=== PATIENT | male | born 1945 | race Caucasian/White ===

== ENCOUNTER 2017-10-12 10:32 | Outpatient (CLI) | payer MEDICARE, OTHER ==
[2017-10-12 11:54] LABS: Hemoglobin 12.3 g/dL (14.0-18.0); Mean Corpuscular HGB CONC 31.7 g/dL (32.0-36.0); Mean Corpuscular Hemoglobin 28.1 pg (27.0-31.0); Mean Corpuscular Volume 88.6 fl (80.0-94.0); Mean Platelet Volume 9.1 fL (7.4-10.4); Platelet Count 286 thou/uL (130-400); RBC Distribution Width 18.8 % (11.5-14.5); Red Blood Cell (RBC) Count 4.37 mill/uL (4.70-6.10); White Blood Cell (WBC) Count 12.1 thou/uL (4.8-10.8)
[2017-10-12 12:12] LABS: Bilirubin Negative (Negative); Blood, Urine Negative (Negative); Clarity CLEAR (Clear); Glucose, Urine (Dipstick) Negative (Negative); Leukocyte Negative (Negative); Nitrite Negative (Negative); Protein, Urine (Dipstick) Negative (Neg-Trace); Specific Gravity, Urine 1.018 (1.002-1.036); pH, Urine 5.5 (5.0-9.0)
[2017-10-12 12:15] LABS: Bacteria/HPF None Seen HPF (None Seen); Hyaline Casts/LPF 0-3 HYALINE CAST LPF (0-3 Hyaline); INR-International Normal Ratio 1.1; PTT 31.3 SEC (22.9-36.1); Prothrombin Time 14.3 SEC (12.0-14.7); RBC/HPF 0-3 HPF (0-3); Squamous Epithelial None Seen HPF (0-3); WBC/HPF None Seen HPF (0-3)
[2017-10-12 12:16] LABS: Anion Gap 14 mmol/L (10-20); BUN (Urea Nitrogen) 27 mg/dL (8.4-25.7); Calc. Creatinine Clearance 0 mL/min (70-130); Calcium 9.6 mg/dL (7.8-10.44); Carbon Dioxide 25 mmol/L (23-31); Chloride 102 mmol/L (98-107); Estimated GFR-MDRD 76; Glucose 140 mg/dL (83-110); Potassium 4.5 mmol/L (3.5-5.1); Sodium 136 mmol/L (136-145)
--- NOTE | 2017-10-12 13:43 | RAD ---
PA AND LATERAL CHEST: Date: 10/12/17 INDICATION: History of preop. FINDINGS: Lungs are clear. Cardiomediastinal silhouette is within normal limits. There is stable vascular calci fication involving the aortic arch when compared to prior dated 01/02/15. No acute osseous abnormalit y is evident. IMPRESSION: No acute cardiopulmonary process. POS: [facility]
--- NOTE | 2017-10-12 16:01 | EKG ---
Test Reason : Blood Pressure : / mmHG Vent. Rate : 067 BPM Atrial Rate : 067 BPM P-R Int : 156 ms QRS Dur : 168 ms QT Int : 456 ms P-R-T Axes : 052 -67 036 degrees QTc Int : 481 ms Normal sinus rhythm Left axis deviation Right bundle branch block Abnormal ECG Confirmed by LOGAN RAO ([id number]) on 10/12/2017 4:01:23 PM Referred By: ABIEL Confirmed By:LOGAN RAO
== END 2017-10-12 10:33 | disposition home or self-care (01) ==
LOC: LABBT 10:32
PROVIDERS: ATTEND Orthopaedic Surgery
DX: Z01.818 Encounter for other preprocedural examination (principal); M17.11 Unilateral primary osteoarthritis, right knee
CPT/HCPCS: 36415; 71046; 80053; 80061; 81001; 82728; 83540; 83550; 85046; 85610; 85730; 86850; 86900; 86901; 93005; 93010

== ENCOUNTER 2017-10-18 07:41 | Outpatient (CLI) | payer OTHER, MEDICARE ==
[2017-10-18] MEDS ORDERED: Gadobenate Dimeglumine 529 MG/1 ML (20ML VIAL) ONE (07:52)
--- NOTE | 2017-10-18 14:04 | MRI ---
MRI LUMBAR SPINE WITH AND WITHOUT CONTRAST: HISTORY: Lumbar radicular pain. History of prior surgery. COMPARISON: MRI lumbar spine, dated October 2012. TECHNIQUE: Multiplanar, multisequential imaging of the lumbar spine obtained. Post contrast images obtained with the administration of 17 mL of MultiHance IV. FINDINGS: The lumbar vertebrae maintain height and alignment. There are degenerative disk changes at all level s with loss of disk space at all levels of the lumbar spine. L5 appears mildly transitional but will be labeled L5 on this study. At L1-L2, broad-based disk bulge is associated with facet hypertrophy, resulting in mild to moderate central canal stenosis. Bilateral foraminal encroachment, more severe on the right, due to asymmetri c bulge into the right foramina. At L2-L3, diffuse disk bulge is seen. Posterior facet hypertrophy. There are posterior laminectomy changes present. Moderate central canal stenosis. At L3-L4, broad-based bulge. Facet hypertrophy. Posterior laminectomy change. Moderate central can al stenosis. Severe bilateral foraminal stenosis due to diffuse disk bulge and facet hypertrophy. At L4-L5, there is grade 1 spondylolisthesis. There is associated diffuse disk bulge. Posterior chawla inectomy change. Facet hypertrophy. Moderate central canal stenosis. Bilateral foraminal stenosis. At L5-S1, diffuse disk bulge. Prominent facet hypertrophy. No significant central canal stenosis du e to congenitally smaller thecal sac. Mild foraminal stenosis. IMPRESSION: 1. Multilevel degenerative disk changes. 2. Posterior laminectomy changes at multiple levels. 3. Central canal and foraminal stenosis is seen at multiple levels, as detailed above. POS: [facility]
== END 2017-10-18 07:42 | disposition home or self-care (01) ==
LOC: MRI 07:41
PROVIDERS: ATTEND Neurological Surgery
DX: M47.26 Other spondylosis with radiculopathy, lumbar region (principal); M99.83 Other biomechanical lesions of lumbar region; Z98.1 Arthrodesis status
CPT/HCPCS: 72158; A9579

== ENCOUNTER 2017-10-19 06:30 | Inpatient (IN) | payer OTHER, MEDICARE ==
[2017-10-05 12:47] VITALS: BMI 27.1
[2017-10-19] MEDS ORDERED: Tranexamic Acid 1,000 MG/100 ML BAG ONE ×2 (07:24→11:31)
[2017-10-19] MEDS ORDERED: CEFAZOLIN/Water 2 GM/20 ML SYRINGE ONE (07:25)
[2017-10-19] MEDS ORDERED: Vancomycin HCl 1.5 GM in Sodium Chloride 0.9% 250 ML 300 ML IVPB SCH (07:45)
[2017-10-19] MEDS ORDERED: Lidocaine 1% (PF) 30 ML VIAL ONE (08:06)
[2017-10-19] MEDS ORDERED: Midazolam HCl 2 mg/2 ml Vial ONE ×2 (08:06→11:33)
[2017-10-19] MEDS ORDERED: Fentanyl 100 MCG/2 ML VIAL ONE ×2 (08:06→11:32)
[2017-10-19] MEDS ORDERED: HYDROcodone/Acetaminophen 10/325 mg Tablet PO PRN ×2 (08:39→09:10)
[2017-10-19] MEDS ORDERED: traMADol HCl 50 MG TAB PO PRN ×3 (08:39→09:10)
[2017-10-19] MEDS ORDERED: Ondansetron HCl/PF 4 MG/2 ML Vial IVP PRN ×2 (08:39→09:10)
[2017-10-19] MEDS ORDERED: Ropivacaine HCl/PF 250 ML in Premix Bag 1 BAG NERVE BLCK SCH (08:39)
[2017-10-19] MEDS ORDERED: Promethazine HCl 25 MG/ML VIAL IM PRN ×2 (08:39→09:10)
[2017-10-19] MEDS ORDERED: Zolpidem Tartrate 5 MG TAB PO PRN ×2 (08:39→09:10)
[2017-10-19] MEDS ORDERED: Fentanyl 100 MCG/2 ML VIAL IV PRN (08:39)
[2017-10-19] MEDS ORDERED: Ketorolac Tromethamine 30 MG/ML VIAL IVP PRN (08:39)
[2017-10-19] MEDS ORDERED: diphenhydrAMINE 25 MG CAP PO PRN (09:10)
[2017-10-19] MEDS ORDERED: Acetaminophen 325 MG TAB PO PRN (09:10)
[2017-10-19] MEDS ORDERED: Fentanyl 100 MCG/2 ML VIAL SLOW IVP PRN ×2 (09:10)
[2017-10-19] MEDS ORDERED: Tranexamic Acid 1,000 MG in Sodium Chloride 0.9% 100 ML IVPB SCH (09:15)
--- NOTE | 2017-10-19 12:11 | OP ---
DATE OF PROCEDURE: 10/19/2017 PREOPERATIVE DIAGNOSES: 1. End-stage tricompartmental osteoarthritis of right knee with large reactive periarticular bone cy st, right medial femoral condyle requiring bone graft. 2. Erosive periarticular bone cyst, right medial tibial articular condyle. POSTOPERATIVE DIAGNOSES: 1. End-stage tricompartmental osteoarthritis of right knee with large reactive periarticular bone cy st, right medial femoral condyle requiring bone graft. 2. Erosive periarticular bone cyst, right medial tibial articular condyle. OPERATIVE PROCEDURES: 1. Cemented cruciate-sparing computer-assisted navigated right total knee arthroplasty. 2. Local autograft bone graft of right medial femoral condyle. SURGEON: Shane Gaona M.D. AIRPLANE GAS TANK LINER ASSEMBLER: Parviz Carcamo PA-C ANESTHESIA: General via laryngeal mask airway augmented with indwelling adductor canal block and sin gle shot sciatic block. TOURNIQUET TIME: Tourniquet not used. ESTIMATED BLOOD LOSS: 300 mL. FINDINGS: End-stage severe degenerative tricompartmental disease, bone on bone arthrosis, periarticu lar osteophyte formation, large tear and effusion, hypertrophic synovium, macerated menisci in both m edial and lateral compartments with large erosive medial femoral condyle bone cyst measuring approxim ately 20 x 25 mm and large tibial condyle erosive bone cyst. COMPONENTS USED: Jerry orthopedic Triathlon size 5 cruciate-sparing cemented femoral component wit h a size 5 cemented primary tibial baseplate, 9 mm polyethylene fixed bearing insert, and A32 patella r button. DRAINS: None. SPECIMENS: None. COMPLICATIONS: None. COUNTS: Correct. INDICATIONS FOR SURGERY: Bryon is a 72-year-old white male who has had progressive right knee pain amplified with standing and walking for the last 5-7 years. He also has known peripheral vascular di sease and he has failed conservative management and elected to proceed with total knee arthroplasty a s a definitive treatment of his pain. PROCEDURE IN DETAIL: After informed consent was obtained in the preoperative holding area. The nathalie ent was taken to the operative suite where general anesthesia was induced. Once adequate level of ge neral anesthesia was obtained, the patient was positioned. The right lower extremity was then preppe d and draped in the usual sterile fashion. A time out was called and all members of the surgical tea m agreed upon site, surgeon, and patient. A midline longitudinal incision was then made directly ove r the patella extending two fingerbreadths above the superior pole of the patella and two fingerbread ths inferior to the inferior patellar pole of the patella. Deeper subcutaneous layers were dissected sharply and local bleeding was controlled with Bovie electrocautery. A quad tendon longitudinal spl it was then made sharply and a median parapatellar arthrotomy was carried out both sharp and with Bov ie electrocautery, carried down to one fingerbreadth medial to the tibial tubercle. The knee was the n placed into flexion and the patella was everted nicely, and a copious fat pad ectomy was performed allowing for greater exposure of the tibia. The computer-assisted distal femoral fiducial was then p laced and pinned firmly, and the distal femoral cutting guide was pinned firmly into place. The osci llating saw was then used to remove the appropriate amount of bone. The 4-in-1 cutting block was the n placed on the distal femur and the oscillating saw was used to remove the appropriate amount of bon e off of the anterior, posterior, and chamfer cuts. After completion of the chamfer cuts, the box-cu tting guide was placed, malleted firmly into place and pinned securely, and an osteotome was used to make the distal cut and the oscillating saw was then used to make the medial and lateral box cuts. T his came out quite nicely and was removed with Bovie electrocautery, and the oscillating saw was then used to broaden the lateral medial florez of the box cut. After completion of bone cuts, the anterio r cruciate ligament was resected sharply and the posterior cruciate ligament retractor was placed and the tibia was subluxed for better exposure. Partial meniscectomies were carried out, and the tibial computer-assisted fiducial was pinned, and the cutting guide was placed. Oscillating saw was then u sed to remove the bone with Hohmann retractors used to take care and protect the collateral ligaments . After the tibial resection was performed, a laminar digital marketing strategist was placed in between the freshened b one cuts. The knee placed at 90 degrees and further bilateral meniscectomies were carried out, and t he curved osteotome and curettage was used to remove any excess bone spurs in the posterior compartme nt. The trial femoral component, tibial baseplate were placed with the appropriate polyethylene tria l insert with an appropriate polyethylene spacer and patellar button. The knee was taken through ful l range of motion with flexion and extension from 0-90 degrees and patellar broach squarely in the t rochlea without any squinting or subluxation noted. The knee was also stable to varus and valgus str essing at 0, 15, 45, and 90 degrees of flexion. The drawer was negative. All trial components were t hen removed and the keel punch was used to provide the appropriate defect in the tibia with a mallet. The freshened bone cuts were copiously irrigated with pulsatile lavage of about 1-1/2 liters to rem ove all excess debris. The freshened bone cuts were then dried and with suction and lap sponge. The knee was placed in flexion and retractors were placed to provide access to all bone cuts. Tobramyci n impregnated methyl methacrylate cement was then placed on the freshened bone cuts and implants whic h were malleted firmly into place. Curettage and [place] elevators were used to remove any excess bone cement. The knee was placed into full extension and the patellar button was placed under compressio n, and the cement was allowed to cure. Once completed, the components were again taken through full range of motion and copious irrigation of the knee was carried out with another liter of normal salin e. All components were inspected fully with full range of motion and varus and valgus stressing. The re was no laxity noted and full extension was observed clinically. Primary closure was accomplished with #2 interrupted Vicryl stitch of the arthrotomy defect. This was oversewn with a #2 running Quil l barbed stitch. The subcutaneous layer was then closed with a running 0 barbed Monocryl stitch and skin closure accomplished with a running subcuticular 3-0 Monocryl barbed Quill stitch and augmented with cement on the skin. Good spontaneous return of distal pulses was noted clinically and a sterile dressing was applied to the incision. The procedure was terminated without any complications. The patient was awakened in the operative suite and taken to the recovery room in stable condition.
--- NOTE | 2017-10-19 14:38 | RAD ---
TWO VIEWS RIGHT KNEE: 10/19/2017 HISTORY: Postop total knee replacement. COMPARISON: 12/04/2014 FINDINGS: There have been interval post surgical changes related to placement of a right total knee prosthesis. No hardware complication is seen. There is no fracture or dislocation. Subcutaneous emphysema is seen about the right knee. Dense vascular calcifications are seen in the superficial, femoral, and p opliteal arteries. IMPRESSION: Post surgical changes related to placement of right total knee prosthesis. POS: [facility]
[2017-10-19] MEDS ORDERED: Ropivacaine 0.2% HCl/PF (40 MG/20 ML VIAL) ONE (15:25)
[2017-10-19] MEDS ORDERED: Ropivacaine 0.5% HCl/PF (150 MG/30 ML VIAL) ONE (15:25)
[2017-10-19] MEDS ORDERED: Propofol 200 MG/20 ML VIAL ONE (15:33)
[2017-10-19] MEDS ORDERED: Lidocaine 1% PF 5 ML VIAL ONE (15:33)
[2017-10-19] MEDS ORDERED: ePHEDrine/0.9% NaCl/PF SYRINGE 50 mg/10 ml ONE (15:33)
[2017-10-19] MEDS ORDERED: Ondansetron HCl/PF 4 MG/2 ML Vial ONE (15:33)
[2017-10-19] MEDS: metFORMIN 500 MG TAB PO SCH (16:34)
[2017-10-19] MEDS: CEFAZOLIN/Water 2 GM/20 ML SYRINGE SLOW IVP SCH ×2 (16:35→21:05)
[2017-10-19] MEDS: Sodium Chloride 0.9% 1,000 ML IV SCH ×2 (19:52→20:47)
[2017-10-19] MEDS: Aspirin 81 mg Enteric Coated Tablet PO SCH (21:03)
[2017-10-19] MEDS: HYDROcodone/Acetaminophen 10/325 mg Tablet PO PRN (23:14)
[2017-10-20] MEDS: Sodium Chloride 0.9% 1,000 ML IV SCH ×2 (04:15→15:54)
[2017-10-20 05:03] LABS: Hemoglobin 9.7 g/dL (14.0-18.0); Mean Corpuscular HGB CONC 32.3 g/dL (32.0-36.0); Mean Corpuscular Hemoglobin 28.6 pg (27.0-31.0); Mean Corpuscular Volume 88.6 fl (80.0-94.0); Mean Platelet Volume 8.4 fL (7.4-10.4); Platelet Count 195 thou/uL (130-400); RBC Distribution Width 18.5 % (11.5-14.5); Red Blood Cell (RBC) Count 3.38 mill/uL (4.70-6.10); White Blood Cell (WBC) Count 12.6 thou/uL (4.8-10.8)
[2017-10-20] MEDS: HYDROcodone/Acetaminophen 10/325 mg Tablet PO PRN ×4 (06:19→20:48)
[2017-10-20] MEDS: Ferrous Gluconate 324 MG TAB PO SCH ×2 (08:38→18:22)
[2017-10-20] MEDS: Multivitamin W/ Minerals 1 TAB PO SCH (08:38)
[2017-10-20] MEDS: metFORMIN 500 MG TAB PO SCH ×2 (08:38→18:22)
[2017-10-20] MEDS: Aspirin 81 mg Enteric Coated Tablet PO SCH ×2 (08:38→20:44)
[2017-10-20] MEDS: Senokot S 8.6-50 MG TAB PO SCH ×2 (08:39→20:44)
[2017-10-20] MEDS: glipiZIDE 5 MG TAB PO SCH (08:40)
[2017-10-20] MEDS: Hydrochlorothiazide 25 MG TAB PO SCH (08:40)
[2017-10-20] MEDS: Pregabalin 25 MG CAP PO SCH (08:41)
[2017-10-20] MEDS ORDERED: Prevnar 13-Val Conj/PF 0.5 ML SYRINGE IM ONE (09:00)
--- NOTE | 2017-10-20 14:28 | PDOC.PN ---
- Subjective Encounter Start Date: 10/20/17 Encounter Start Time: 08:50 Pt doing okay, not excited aobut mving with PT next. refused BP meds and DM meds as his numbers were okay. no f/c, no N/V/d/C, no CP or sOB. plan is to go home or to rehab. not sure he can do okay at home just yet 10 point ROS performed and neg for all systems except as above - Objective MAR Reviewed: Yes Vital Signs & Weight: Vital Signs (12 hours) Temp Pulse Resp BP Pulse Ox 10/20/17 08:00 98.9 F 72 18 96 10/20/17 07:36 98.9 F 72 18 104/61 96 10/20/17 03:41 98.0 F 65 14 106/66 94 L Weight Admit Weight 184 lb Weight 184 lb I&O: 10/19/17 10/20/17 10/21/17 06:59 06:59 06:59 Intake Total 1820 200 Balance 1820 200 Result Diagrams: 10/21/17 04:34 Radiology Reviewed by me: Yes Phys Exam - Physical Examination Constitutional: NAD HEENT: PERRLA, moist MMs, sclera anicteric, oral pharynx no lesions Neck: no nodes, no JVD, supple, full ROM Respiratory: no wheezing, no rales, no rhonchi, clear to auscultation bilateral Cardiovascular: RRR, no significant murmur, no rub Gastrointestinal: soft, non-tender, no distention, positive bowel sounds Musculoskeletal: no edema, pulses present left knee dressing c/D/I, no strikethrough Neurological: non-focal, normal sensation, moves all 4 limbs Lymphatic: no nodes Psychiatric: normal affect, A&O x 3 Skin: no rash, normal turgor, cap refill <2 seconds Dx/Plan (1) HTN (hypertension) Code(s): I10 - ESSENTIAL (PRIMARY) HYPERTENSION Status: Chronic Qualifiers: Hypertension type: essential hypertension Qualified Code(s): I10 - Essential (primary) hypertension (2) DM2 (diabetes mellitus, type 2) Status: Chronic Qualifiers: Diabetes mellitus complication status: without complication Diabetes mellitus superintendent container terminal insulin use: without superintendent container terminal use Qualified Code(s): E11.9 - Type 2 diabetes mellitus without complications (3) HLD (hyperlipidemia) Code(s): E78.5 - HYPERLIPIDEMIA, UNSPECIFIED Status: Chronic Qualifiers: Hyperlipidemia type: unspecified Qualified Code(s): E78.5 - Hyperlipidemia , unspecified (4) GERD (gastroesophageal reflux disease) Code(s): K21.9 - GASTRO-ESOPHAGEAL REFLUX DISEASE WITHOUT ESOPHAGITIS Status: Chronic Qualifiers: Esophagitis presence: without esophagitis Qualified Code(s): K21.9 - Gastro -esophageal reflux disease without esophagitis - Plan cont current plan of care, PT/OT, out of bed/ambulate * . continue home meds as he will allow, to home or rehab today or tomorrow
[2017-10-21] MEDS: Sodium Chloride 0.9% 1,000 ML IV SCH (01:03)
[2017-10-21 05:49] LABS: Hemoglobin 9.9 g/dL (14.0-18.0); Mean Corpuscular HGB CONC 30.9 g/dL (32.0-36.0); Mean Corpuscular Hemoglobin 28.1 pg (27.0-31.0); Mean Corpuscular Volume 91.1 fl (80.0-94.0); Mean Platelet Volume 8.8 fL (7.4-10.4); Platelet Count 227 thou/uL (130-400); RBC Distribution Width 19.2 % (11.5-14.5); White Blood Cell (WBC) Count 14.7 thou/uL (4.8-10.8)
[2017-10-21] MEDS: HYDROcodone/Acetaminophen 10/325 mg Tablet PO PRN (06:18)
[2017-10-21] MEDS: Ferrous Gluconate 324 MG TAB PO SCH (08:23)
[2017-10-21] MEDS: Multivitamin W/ Minerals 1 TAB PO SCH (08:23)
[2017-10-21] MEDS: Senokot S 8.6-50 MG TAB PO SCH (08:23)
[2017-10-21] MEDS: Aspirin 81 mg Enteric Coated Tablet PO SCH (08:24)
[2017-10-21] MEDS: Hydrochlorothiazide 25 MG TAB PO SCH (10:39)
[2017-10-21] MEDS: glipiZIDE 5 MG TAB PO SCH (10:39)
[2017-10-21] MEDS: Pregabalin 25 MG CAP PO SCH (10:39)
[2017-10-21] MEDS: metFORMIN 500 MG TAB PO SCH (10:39)
[2017-10-21 11:29] VITALS: TEMP 98.5
[2017-10-21 12:46] VITALS: BP 135/72
--- NOTE | 2017-10-21 15:18 | PDOC.PN ---
- Subjective Encounter Start Date: 10/21/17 Encounter Start Time: 11:15 Pt walking with PT. to Rehab at [facility]. no f/C, no N/V/d/C. BP normal, sugrars okay. 10 point ROS performed and neg for all systems except as per hPI - Objective MAR Reviewed: Yes Vital Signs & Weight: Vital Signs (12 hours) Temp Pulse Pulse Resp BP BP Pulse Ox 10/21/17 11:28 98.5 F 70 16 99/65 100 10/21/17 11:10 70 135/72 10/21/17 08:00 99.1 F 70 16 97 10/21/17 07:52 99.1 F 70 16 135/73 97 10/21/17 04:50 99.0 F 84 20 118/72 98 Pulse Ox 10/21/17 11:28 10/21/17 11:10 97 10/21/17 08:00 10/21/17 07:52 10/21/17 04:50 Weight Admit Weight 184 lb Weight 184 lb I&O: 10/20/17 10/21/17 10/22/17 06:59 06:59 06:59 Intake Total 1820 1160 Balance 1820 1160 Result Diagrams: 10/21/17 04:34 Additional Labs: Accuchecks 10/21/17 10:34 POC Glucose 213 H Phys Exam - Physical Examination Constitutional: NAD HEENT: PERRLA, moist MMs, sclera anicteric, oral pharynx no lesions Neck: no nodes, no JVD, supple, full ROM Respiratory: no wheezing, no rales, no rhonchi, clear to auscultation bilateral Cardiovascular: RRR, no significant murmur, no rub Gastrointestinal: soft, non-tender, no distention, positive bowel sounds Musculoskeletal: no edema, pulses present Neurological: non-focal, normal sensation, moves all 4 limbs Lymphatic: no nodes Psychiatric: normal affect, A&O x 3 Skin: no rash, normal turgor, cap refill <2 seconds Dx/Plan (1) HTN (hypertension) Code(s): I10 - ESSENTIAL (PRIMARY) HYPERTENSION Status: Chronic Qualifiers: Hypertension type: essential hypertension Qualified Code(s): I10 - Essential (primary) hypertension (2) DM2 (diabetes mellitus, type 2) Status: Chronic Qualifiers: Diabetes mellitus complication status: without complication Diabetes mellitus skilled nursing insulin use: without terminal manager use Qualified Code(s): E11.9 - Type 2 diabetes mellitus without complications (3) HLD (hyperlipidemia) Code(s): E78.5 - HYPERLIPIDEMIA, UNSPECIFIED Status: Chronic Qualifiers: Hyperlipidemia type: unspecified Qualified Code(s): E78.5 - Hyperlipidemia , unspecified (4) GERD (gastroesophageal reflux disease) Code(s): K21.9 - GASTRO-ESOPHAGEAL REFLUX DISEASE WITHOUT ESOPHAGITIS Status: Chronic Qualifiers: Esophagitis presence: without esophagitis Qualified Code(s): K21.9 - Gastro -esophageal reflux disease without esophagitis - Plan * .
== END 2017-10-21 13:06 | disposition home or self-care (01) | DRG 470 ==
LOC: SDC 06:30 → SURG B 09:10
PROVIDERS: ADMIT Orthopaedic Surgery; ATTEND Orthopaedic Surgery
PROC: 0SRC0J9 Replacement of Right Knee Joint with Synthetic Substitute, Cemented, Open Approach (ICD-10-PCS; principal; 2017-10-19)
PROC: 0QUB07Z Supplement Right Lower Femur with Autologous Tissue Substitute, Open Approach (ICD-10-PCS; 2017-10-19)
PROC: 8E0YXBZ Computer Assisted Procedure of Lower Extremity (ICD-10-PCS; 2017-10-19)
PROC: 3E0T3BZ Introduction of Anesthetic Agent into Peripheral Nerves and Plexi, Percutaneous Approach (ICD-10-PCS; 2017-10-19)
PROC: 3E0T3BZ Introduction of Anesthetic Agent into Peripheral Nerves and Plexi, Percutaneous Approach (ICD-10-PCS; 2017-10-19)
DX: M17.0 Bilateral primary osteoarthritis of knee (principal); E11.51 Type 2 diabetes mellitus with diabetic peripheral angiopathy without gangrene; M23.300 Other meniscus derangements, unspecified lateral meniscus, right knee; M23.303 Other meniscus derangements, unspecified medial meniscus, right knee; M85.661 Other cyst of bone, right lower leg; M25.761 Osteophyte, right knee; I10 Essential (primary) hypertension; E78.5 Hyperlipidemia, unspecified; F17.210 Nicotine dependence, cigarettes, uncomplicated; K21.9 Gastro-esophageal reflux disease without esophagitis; M47.26 Other spondylosis with radiculopathy, lumbar region; M99.83 Other biomechanical lesions of lumbar region; Z98.1 Arthrodesis status
CPT/HCPCS: 36415; 36416; 72158; 85027; 86850; 86900; 86901; A9579; C1713; C1776; G8978-GP-CM; G8979-GP-CJ; G8987-GO-CK; G8988-GO-CI; J2001; J2250; J2405; J2704; J2795; J3010; J3370; J7050

== ENCOUNTER 2017-11-24 10:58 | Outpatient (CLI) | payer OTHER, MEDICARE ==
[2017-11-24 12:49] LABS: #Basophils 0.1 thou/uL (0.0-0.2); #Eosinphils 0.4 thou/uL (0.0-0.7); #Monocytes 0.8 thou/uL (0.11-0.59); #Neutrophils 9.1 thou/uL (1.40-6.50); %Basophils 0.8 % (0.0-1.0); %Eosinophils 3.4 % (0.0-10.0); %Lymphocytes 15.9 % (21.0-51.0); %Monocytes 6.5 % (0.0-10.0); %Neutrophils 73.3 % (42.0-75.0); Hemoglobin 11.3 g/dL (14.0-18.0); Mean Corpuscular HGB CONC 31.8 g/dL (32.0-36.0); Mean Corpuscular Hemoglobin 27.6 pg (27.0-31.0); Mean Corpuscular Volume 86.6 fl (80.0-94.0); Mean Platelet Volume 8.2 fL (7.4-10.4); Platelet Count 257 thou/uL (130-400); RBC Distribution Width 17.2 % (11.5-14.5); Red Blood Cell (RBC) Count 4.11 mill/uL (4.70-6.10); White Blood Cell (WBC) Count 12.3 thou/uL (4.8-10.8)
[2017-11-24 13:13] LABS: Anion Gap 10 mmol/L (10-20); BUN (Urea Nitrogen) 19 mg/dL (8.4-25.7); Calc. Creatinine Clearance 0 mL/min (70-130); Calcium 9.3 mg/dL (7.8-10.44); Carbon Dioxide 27 mmol/L (23-31); Chloride 103 mmol/L (98-107); Estimated GFR-MDRD 81; Glucose 330 mg/dL (83-110); Potassium 4.1 mmol/L (3.5-5.1); Sodium 136 mmol/L (136-145)
[2017-11-24 13:30] LABS: PTT 30.4 SEC (22.9-36.1)
[2017-11-24 13:31] LABS: INR-International Normal Ratio 1.1; Prothrombin Time 14.2 SEC (12.0-14.7)
== END 2017-11-24 10:59 | disposition home or self-care (01) ==
LOC: LABBT 10:58
PROVIDERS: ATTEND Orthopaedic Surgery
DX: Z01.812 Encounter for preprocedural laboratory examination (principal); M17.12 Unilateral primary osteoarthritis, left knee
CPT/HCPCS: 80048; 85025; 85610; 85730; 86850; 86900; 86901; 87081

== ENCOUNTER 2017-11-24 11:00 | Inpatient (IN) | payer OTHER, MEDICARE ==
[2017-11-24 11:25] VITALS: BMI 27.5
[2017-11-30] MEDS ORDERED: Acetaminophen 325 MG TAB PO PRN (06:57)
[2017-11-30] MEDS ORDERED: Promethazine HCl 25 MG/ML VIAL IM PRN ×4 (06:57→11:05)
[2017-11-30] MEDS ORDERED: HYDROcodone/Acetaminophen 10/325 mg Tablet PO PRN ×4 (06:57→08:26)
[2017-11-30] MEDS ORDERED: Fentanyl 100 MCG/2 ML VIAL SLOW IVP PRN ×2 (06:57)
[2017-11-30] MEDS ORDERED: traMADol HCl 50 MG TAB PO PRN ×3 (06:57→08:26)
[2017-11-30] MEDS ORDERED: Zolpidem Tartrate 5 MG TAB PO PRN ×3 (06:57→11:05)
[2017-11-30] MEDS ORDERED: diphenhydrAMINE 25 MG CAP PO PRN ×2 (06:57→11:05)
[2017-11-30] MEDS ORDERED: Ondansetron HCl/PF 4 MG/2 ML Vial IVP PRN ×4 (06:57→11:05)
[2017-11-30] MEDS ORDERED: Tranexamic Acid 1,000 MG in Sodium Chloride 0.9% 100 ML IVPB SCH (07:00)
[2017-11-30] MEDS ORDERED: CEFAZOLIN/Water 2 GM/20 ML SYRINGE ONE (07:51)
[2017-11-30] MEDS ORDERED: Vancomycin HCl 1.5 GM, Admixture Fee 1 EACH in Sodium Chloride 0.9% 250 ML 300 ML IVPB SCH (08:00)
[2017-11-30] MEDS ORDERED: Fentanyl 100 MCG/2 ML VIAL ONE ×4 (08:05→10:44)
[2017-11-30] MEDS ORDERED: Midazolam HCl 2 mg/2 ml Vial ONE (08:05)
[2017-11-30] MEDS ORDERED: Ketorolac Tromethamine 30 MG/ML VIAL IVP PRN (08:26)
[2017-11-30] MEDS ORDERED: Fentanyl 100 MCG/2 ML VIAL IV PRN (08:26)
[2017-11-30] MEDS ORDERED: Bupivacaine/Epinephrine 0.25% 30 ML VIAL ONE ×2 (08:53→13:06)
[2017-11-30] MEDS ORDERED: Promethazine HCl 25 MG/ML VIAL SLOW IVP PRN (10:44)
[2017-11-30] MEDS ORDERED: HYDROmorphone 2 MG/ML VIAL SLOW IVP PRN (10:44)
[2017-11-30] MEDS ORDERED: Naloxone HCl 0.4 mg/ml Vial IV PRN (11:05)
[2017-11-30] MEDS ORDERED: diphenhydrAMINE 50 MG/ML VIAL IM/IV PRN (11:05)
[2017-11-30] MEDS ORDERED: Fentanyl 5000 MCG/250 ML CADD IV PRN (11:05)
--- NOTE | 2017-11-30 11:38 | RAD ---
THREE VIEWS OF THE LEFT KNEE: COMPARISON: None. HISTORY: Status post left knee arthroplasty. FINDINGS: Three views of the left knee show the patient to be left knee arthroplasty without perihardware lucen cy or fracture. Air in the soft tissues is from recent surgery. Vascular calcifications are seen po sterior to the knee. IMPRESSION: Status post left knee arthroplasty without evidence of complication. POS: [facility]
[2017-11-30] MEDS ORDERED: fentaNYL Citrate/PF 2,000 MCG in Sodium Chloride 0.9% 60 ML IV SCH (11:45)
[2017-11-30] MEDS ORDERED: Sodium Chloride 0.65% Nasal 44 ML BOT EA NARE PRN (12:05)
[2017-11-30] MEDS ORDERED: Ondansetron ODT 4 MG TAB PO PRN (12:05)
[2017-11-30] MEDS ORDERED: Mag-Al 1200 mg/1200 mg/30 ML UDCUP PO PRN (12:05)
[2017-11-30] MEDS ORDERED: Milk Of Magnesia 30 ML UDCUP PO PRN (12:05)
[2017-11-30] MEDS ORDERED: Chloraseptic Spray 180 ml Bottle PO PRN (12:05)
[2017-11-30] MEDS ORDERED: Diabetic Tussin 200 MG/10 ML UDCUP PO PRN (12:05)
[2017-11-30] MEDS ORDERED: Loperamide HCl 2 MG CAP PO PRN (12:05)
[2017-11-30] MEDS ORDERED: Eucerin (Mineral Oil/Petrolatum,White) 30 gm Jar TOP PRN (12:05)
[2017-11-30] MEDS ORDERED: Senokot 8.6 MG TAB PO PRN (12:05)
[2017-11-30] MEDS ORDERED: hydrALAZINE 20 MG/ML VIAL SLOW IVP PRN (12:05)
[2017-11-30] MEDS ORDERED: Artificial Tears 18 DROP/0.9 ML EA EYE PRN (12:05)
--- NOTE | 2017-11-30 12:09 | PDOC.PN ---
- Subjective Encounter Start Date: 11/30/17 Encounter Start Time: 13:00 -: old records requested/rev Patient seen and examined. No new complaints. No overnight events - Objective MAR Reviewed: Yes Vital Signs & Weight: Weight Weight 185 lb Radiology Reviewed by me: Yes (knee xray) Phys Exam - Physical Examination Constitutional: NAD HEENT: PERRLA, moist MMs, sclera anicteric Neck: no JVD, supple Respiratory: no wheezing, no rales, no rhonchi Cardiovascular: RRR, no significant murmur, no rub Gastrointestinal: soft, non-tender, no distention, positive bowel sounds Musculoskeletal: pulses present left knee with dressing Neurological: non-focal, normal sensation, moves all 4 limbs Psychiatric: normal affect, A&O x 3 Skin: no rash, normal turgor Dx/Plan (1) Status post total left knee replacement Code(s): Z96.652 - PRESENCE OF LEFT ARTIFICIAL KNEE JOINT Status: Acute (2) Lumbar stenosis Code(s): M48.06 - SPINAL STENOSIS, LUMBAR REGION * DO NOT USE * Status: Chronic (3) DM2 (diabetes mellitus, type 2) Status: Chronic Qualifiers: (4) GERD (gastroesophageal reflux disease) Code(s): K21.9 - GASTRO-ESOPHAGEAL REFLUX DISEASE WITHOUT ESOPHAGITIS Status: Chronic Qualifiers: (5) HLD (hyperlipidemia) Code(s): E78.5 - HYPERLIPIDEMIA, UNSPECIFIED Status: Chronic Qualifiers: (6) HTN (hypertension) Code(s): I10 - ESSENTIAL (PRIMARY) HYPERTENSION Status: Chronic Qualifiers: (7) Osteoarthritis Code(s): M19.90 - UNSPECIFIED OSTEOARTHRITIS, UNSPECIFIED SITE Status: Chronic - Plan cont current plan of care, plan discussed w/ family, PT/OT * continue aspirin for DVT prophylaxis as per protocol * continue protonix for GI prophylaxis * Code status: Full code * Home medication reconciled * continue PT/OT as per [facility] protocol treatment. * Pain control with pain meds * medication reviewed as below * symptomatic treatment. Review of Systems - Review of Systems Constitutional: negative: fever, chills, sweats, weakness, malaise, other Eyes: negative: Pain, Vision Change, Conjunctivae Inflammation, Eyelid Inflammation, Redness, Other ENT: negative: Ear Pain, Ear Discharge, Nose Pain, Nose Discharge, Nose Congestion, Mouth Pain, Mouth Swelling, Throat Pain, Throat Swelling, Other Respiratory: negative: Cough, Dry, Shortness of Breath, Hemoptysis, SOB with Excertion, Pleuritic Pain, Sputum, Wheezing Cardiovascular: negative: chest pain, palpitations, orthopnea, paroxysmal nocturnal dyspnea, edema, light headedness, other Gastrointestinal: negative: Nausea, Vomiting, Abdominal Pain, Diarrhea, Constipation, Melena, Hematochezia, Other Genitourinary: negative: Dysuria, Frequency, Incontinence, Hematuria, Retention , Other Musculoskeletal: negative: Neck Pain, Shoulder Pain, Arm Pain, Back Pain, Hand Pain, Leg Pain, Foot Pain, Other Skin: negative: Rash, Lesions, Gorge, Bruising, Other - Medications/Allergies Allergies/Adverse Reactions: Allergies Allergy/AdvReac Type Severity Reaction Status Date / Time atorvastatin Allergy Intermediate SEVERE Verified 11/24/17 11:27 MUSCLE CRAMPING Medications: Current Medications Acetaminophen (Tylenol) 650 mg PO Q4H PRN PRN Reason: MOODY/ T > 101F; Mild Pain (1-3) Aspirin (Ecotrin) 81 mg PO BID [facility] Cefazolin Sodium (Ancef) 2 gm SLOW IVP Q8HR [facility] Stop: 11/30/17 22:01 Diphenhydramine HCl (Benadryl) 25 mg IM/IV Q3H PRN PRN Reason: Itching Diphenhydramine HCl (Benadryl) 25 mg PO Q3H PRN PRN Reason: Itching Fentanyl (Pacu-Sublimaze) 50 mcg SLOW IVP Q10MIN PRN PRN Reason: Moderate to Severe Pain (6-10) Stop: 11/30/17 13:45 Fentanyl (Fentanyl Cadd) 0 mcg IV INF PRN PRN Reason: Pain Ferrous Gluconate (Fergon) 324 mg PO BID [facility] Hydrochlorothiazide (Hydrochlorothiazide) 25 mg PO DAILY [facility] Hydromorphone HCl (Pacu-Dilaudid) 0.5 mg SLOW IVP Q10MIN PRN PRN Reason: Moderate to Severe Pain (6-10) Stop: 11/30/17 13:45 Tranexamic Acid 1,000 mg/ (Sodium Chloride) 110 mls @ 200 mls/hr IVPB ONE [facility] Stop: 11/30/17 21:00 Vancomycin HCl 1.5 gm/Miscellaneous Medication 1 each/ Sodium Chloride 300 mls @ 200 mls/hr IVPB [facility] Stop: 11/30/17 14:00 Bupivacaine HCl 50 ml/ Sodium (Chloride) 100 mls @ 0 mls/hr NERVE BLCK INF QUE PRN Reason: As Directed Fentanyl Citrate 2,000 mcg/ (Sodium Chloride) 100 mls @ 0 mls/hr IV INF QUE PRN Reason: As Directed Iron/Minerals/Multivitamins (Theragran M) 1 tab PO DAILY [facility] Metformin HCl (Glucophage) 500 mg PO BID [facility] Naloxone HCl (Narcan) 0.2 mg IV Q5MIN PRN PRN Reason: RR <8 or pt obtun/unarousable Ondansetron HCl (Pacu-Zofran) 4 mg IVP ONE PRN PRN Reason: Nausea/Vomiting Stop: 11/30/17 13:45 Ondansetron HCl (Zofran) 4 mg IVP Q6H PRN PRN Reason: Nausea/Vomiting Pantoprazole Sodium (Protonix) 40 mg PO DAILY [facility] Pregabalin (Lyrica) 50 mg PO DAILY [facility] Promethazine HCl (Pacu-Phenergan) 6.25 mg SLOW IVP ONE PRN PRN Reason: Nausea/Vomiting Stop: 11/30/17 13:45 Promethazine HCl (Pacu-Phenergan) 6.25 mg IM ONE PRN PRN Reason: Nausea/Vomiting Stop: 11/30/17 13:45 Promethazine HCl (Phenergan) 12.5 mg IM Q4H PRN PRN Reason: Nausea/Vomiting Senna/Docusate Sodium (Senokot S) 2 tab PO BID [facility] Sodium Chloride (Flush - Normal Saline) 10 ml IVF PRN PRN PRN Reason: Saline Flush Zolpidem Tartrate (Ambien) 5 mg PO HSPRN PRN PRN Reason: Insomnia History of Present Illnes - History of Present Illness Reason for Visit: admitted for left total knee replacement History of Present Illness: elective admission for left knee replacement has OA both knee Failed outpt conservative medical therapy - Past Medical History Cardiac: HTN, Hyperlipidemia Gastrointestinal: Diverticulosis, GERD Musculoskeletal: Chronic low back pain, Osteoarthritis Endocrine: Diabetes - Past Surgical History Past Surgical History: Arthroscopy (both knee), Other (decompressive laminectomy , colonoscopy with polypectomy, EGD), Total Knee Replacement (left) - Past Family History Family History: Cancer (to his father), DM, Hypertension - Past Social History Smoke: <1 pack per day Alcohol: None Drugs: None Lives: With Family Domestic Violence: Negative
--- NOTE | 2017-11-30 12:38 | OP ---
PREOPERATIVE DIAGNOSIS: Degenerative joint disease, left knee. POSTOPERATIVE DIAGNOSIS: Degenerative joint disease, left knee. SURGEON: Shane Gaona M.D. PRINT CUTTER: Tessa Gaxiola PA-C BLOOD LOSS: 300 mL. SPECIMEN: None. DRAINS: None. COMPLICATIONS: None. TOURNIQUET TIME: Zero. Tourniquet was not used. IMPLANTS USED: Jerry Triathlon 5 femur, 5 tibia, 9 mm CSX3 polyethylene, and A32 patella. PROCEDURE IN DETAIL: After informed consent was obtained in the preoperative holding area. The nathalie ent was taken to the operative suite where general anesthesia was induced. Once adequate level of ge neral anesthesia was obtained, the patient was positioned and a well-padded tourniquet was placed jong und the left proximal thigh. The left lower extremity was then prepped and draped in the usual steri le fashion. Prior to exsanguination, a time out was called and all members of the surgical team agre ed upon site, surgeon, and patient. The extremity was then exsanguinated and the tourniquet was rais ed. A midline longitudinal incision was then made directly over the patella extending two fingerbrea dths above the superior pole of the patella and two fingerbreadths inferior to the inferior patellar pole of the patella. Deeper subcutaneous layers were dissected sharply and local bleeding was contro lled with Bovie electrocautery. A quad tendon longitudinal split was then made sharply and a median parapatellar arthrotomy was carried out both sharp and with Bovie electrocautery, carried down to one fingerbreadth medial to the tibial tubercle. The knee was then placed into flexion and the patella was everted nicely, and a copious fat pad ectomy was performed allowing for greater exposure of the t ibia. The computer-assisted distal femoral fiducial was then placed and pinned firmly, and the dista l femoral cutting guide was pinned firmly into place. The oscillating saw was then used to remove th e appropriate amount of bone. The 4-in-1 cutting block was then placed on the distal femur and the o scillating saw was used to remove the appropriate amount of bone off of the anterior, posterior, and chamfer cuts. After completion of bone cuts, the anterior cruciate ligament was resected sharply and the posterior cruciate ligament retractor was placed and the tibia was subluxed for better exposure. Partial meniscectomies were carried out, and the tibial computer-assisted fiducial was pinned, and the cutting guide was placed. Oscillating saw was then used to remove the bone with Hohmann retracto rs used to take care and protect the collateral ligaments. After the tibial resection was performed, a laminar research assistant member was placed in between the freshened bone cuts. The knee placed at 90 degrees and further bilateral meniscectomies were carried out, and the curved osteotome and curettage was used t o remove any excess bone spurs in the posterior compartment. Exparel was then injected into the post erior capsule, bhargav-articular synovia, pre-patella synovia, and musculature surrounding the capsule. The trial femoral component, tibial baseplate were placed with the appropriate polyethylene trial in sert with an appropriate polyethylene spacer and patellar button. The knee was taken through full ra nge of motion with flexion and extension from 0-90 degrees and patellar broach squarely in the trochl ea without any squinting or subluxation noted. The knee was also stable to varus and valgus stressin g at 0, 15, 45, and 90 degrees of flexion. The drawer was negative. All trial components were then removed and the keel punch was used to provide the appropriate defect in the tibia with a mallet. Th e freshened bone cuts were copiously irrigated with pulsatile lavage of about 1-1/2 liters to remove all excess debris. The freshened bone cuts were then dried and with suction and lap sponge. The kne e was placed in flexion and retractors were placed to provide access to all bone cuts. Tobramycin im pregnated methyl methacrylate cement was then placed on the freshened bone cuts and implants which we re malleted firmly into place. Curettage and Wingina elevators were used to remove any excess bone [place] ent. The knee was placed into full extension and the patellar button was placed under compression, a nd the cement was allowed to cure. Once completed, the components were again taken through full rang e of motion and copious irrigation of the knee was carried out with another liter of normal saline. All components were inspected fully with full range of motion and varus and valgus stressing. There was no laxity noted and full extension was observed clinically. Primary closure was accomplished wit h #2 interrupted Vicryl stitch of the arthrotomy defect. This was oversewn with a #2 running Quill b arbed stitch. The gravitational platelet system was then injected into the arthrotomy prior to closu re. The subcutaneous layer was then closed with a running 0 barbed Monocryl stitch and skin closure accomplished with a running subcuticular 3-0 Monocryl barbed Quill stitch and augmented with cement o n the skin. Tourniquet was lowered. Good spontaneous return of distal pulses was noted clinically a nd a sterile dressing was applied to the incision. The procedure was terminated without any complica tions. The patient was awakened in the operative suite and the tourniquet was removed, and the patie nt was taken to the recovery room in stable condition.
[2017-11-30] MEDS ORDERED: Bupivacaine HCl 0.5%/Epinephrine 1:200,000/PF 30 ml Vial ONE (13:06)
[2017-11-30] MEDS ORDERED: diphenhydrAMINE 50 MG/ML VIAL ONE (13:11)
[2017-11-30] MEDS ORDERED: PROPOFOL 200 MG/20 ML VIAL ONE (13:11)
[2017-11-30] MEDS ORDERED: Lidocaine 1% PF 5 ML VIAL ONE (13:11)
[2017-11-30] MEDS ORDERED: Ondansetron HCl/PF 4 MG/2 ML Vial ONE (13:11)
[2017-11-30] MEDS ORDERED: Ketorolac Tromethamine 30 MG/ML VIAL IVP SCH (14:00)
[2017-11-30] MEDS: Ferrous Gluconate 324 MG TAB PO SCH ×2 (15:56→21:04)
[2017-11-30] MEDS: Pregabalin 50 MG CAP PO SCH (15:56)
[2017-11-30] MEDS: Multivitamin W/ Minerals 1 TAB PO SCH (15:56)
[2017-11-30] MEDS: metFORMIN 500 MG TAB PO SCH ×2 (15:56→21:04)
[2017-11-30] MEDS: Aspirin 81 mg Enteric Coated Tablet PO SCH ×2 (15:57→21:05)
[2017-11-30] MEDS: Hydrochlorothiazide 25 MG TAB PO SCH (16:02)
[2017-11-30] MEDS: Senokot S 8.6-50 MG TAB PO SCH ×2 (16:02→21:05)
[2017-11-30] MEDS: CEFAZOLIN/Water 2 GM/20 ML SYRINGE SLOW IVP SCH ×2 (16:05→21:08)
[2017-11-30] MEDS: Bupivacaine 0.5% 50 ML in Sodium Chloride 0.9% 50 ML NERVE BLCK SCH (23:38)
[2017-12-01 05:43] LABS: Hemoglobin 9.7 g/dL (14.0-18.0); Mean Corpuscular HGB CONC 33.2 g/dL (32.0-36.0); Mean Corpuscular Hemoglobin 29.1 pg (27.0-31.0); Mean Corpuscular Volume 87.8 fl (80.0-94.0); Mean Platelet Volume 8.2 fL (7.4-10.4); Platelet Count 242 thou/uL (130-400); Red Blood Cell (RBC) Count 3.32 mill/uL (4.70-6.10); White Blood Cell (WBC) Count 12.7 thou/uL (4.8-10.8)
[2017-12-01] MEDS: Hydrochlorothiazide 25 MG TAB PO SCH (08:53)
[2017-12-01] MEDS: metFORMIN 500 MG TAB PO SCH ×2 (08:53→21:41)
[2017-12-01] MEDS: Multivitamin W/ Minerals 1 TAB PO SCH (08:53)
[2017-12-01] MEDS: Aspirin 81 mg Enteric Coated Tablet PO SCH ×2 (08:53→21:41)
[2017-12-01] MEDS: Pregabalin 50 MG CAP PO SCH (08:53)
[2017-12-01] MEDS: Senokot S 8.6-50 MG TAB PO SCH ×2 (08:53→21:41)
[2017-12-01] MEDS: Ferrous Gluconate 324 MG TAB PO SCH ×2 (08:53→21:41)
[2017-12-01] MEDS ORDERED: Prevnar 13-Val Conj/PF 0.5 ML SYRINGE IM ONE (09:00)
--- NOTE | 2017-12-01 09:03 | PDOC.PN ---
- Subjective Encounter Start Date: 12/01/17 Encounter Start Time: 07:40 Patient seen and examined. No new complaints. No overnight events - Objective Resuscitation Status: Resuscitation Status FULL:Full Resuscitation MAR Reviewed: Yes Vital Signs & Weight: Vital Signs (12 hours) Temp Pulse Resp BP BP BP Pulse Ox 12/01/17 07:11 98.1 F 69 16 114/77 99 12/01/17 04:50 97.7 F 72 17 121/71 97 11/30/17 23:57 98.9 F 80 16 129/72 94 L 11/30/17 22:05 71 176/70 H 11/30/17 21:05 193/68 H Weight Weight 185 lb I&O: 11/30/17 12/01/17 12/02/17 06:59 06:59 06:59 Intake Total 2060 Output Total 1070 Balance 990 Result Diagrams: 12/01/17 05:17 Phys Exam - Physical Examination Constitutional: NAD HEENT: PERRLA, moist MMs, sclera anicteric Neck: no JVD, supple Respiratory: no wheezing, no rales, no rhonchi Cardiovascular: RRR, no significant murmur, no rub Gastrointestinal: soft, non-tender, no distention, positive bowel sounds Musculoskeletal: no edema, pulses present left knee surgical site clean Neurological: non-focal, normal sensation, moves all 4 limbs Psychiatric: normal affect, A&O x 3 Skin: no rash, normal turgor Dx/Plan (1) Status post total left knee replacement Code(s): Z96.652 - PRESENCE OF LEFT ARTIFICIAL KNEE JOINT Status: Acute (2) Lumbar stenosis Code(s): M48.06 - SPINAL STENOSIS, LUMBAR REGION * DO NOT USE * Status: Chronic (3) DM2 (diabetes mellitus, type 2) Status: Chronic Qualifiers: (4) GERD (gastroesophageal reflux disease) Code(s): K21.9 - GASTRO-ESOPHAGEAL REFLUX DISEASE WITHOUT ESOPHAGITIS Status: Chronic Qualifiers: (5) HLD (hyperlipidemia) Code(s): E78.5 - HYPERLIPIDEMIA, UNSPECIFIED Status: Chronic Qualifiers: (6) HTN (hypertension) Code(s): I10 - ESSENTIAL (PRIMARY) HYPERTENSION Status: Chronic Qualifiers: (7) Osteoarthritis Code(s): M19.90 - UNSPECIFIED OSTEOARTHRITIS, UNSPECIFIED SITE Status: Chronic - Plan cont current plan of care, plan discussed w/ family, PT/OT * continue aspirin for DVT prophylaxis as per protocol * continue protonix for GI prophylaxis * Code status: Full code * continue Home medication * continue PT/OT as per [facility] protocol treatment. * Pain control with pain meds * medication reviewed as below * symptomatic treatment * continue HARNESS PULLER and nerve block * will sign off * call if needed Review of Systems - Review of Systems Eyes: negative: Pain, Vision Change, Conjunctivae Inflammation, Eyelid Inflammation, Redness, Other ENT: negative: Ear Pain, Ear Discharge, Nose Pain, Nose Discharge, Nose Congestion, Mouth Pain, Mouth Swelling, Throat Pain, Throat Swelling, Other Respiratory: negative: Cough, Dry, Shortness of Breath, Hemoptysis, SOB with Excertion, Pleuritic Pain, Sputum, Wheezing Cardiovascular: negative: chest pain, palpitations, orthopnea, paroxysmal nocturnal dyspnea, edema, light headedness, other Gastrointestinal: negative: Nausea, Vomiting, Abdominal Pain, Diarrhea, Constipation, Melena, Hematochezia, Other Genitourinary: negative: Dysuria, Frequency, Incontinence, Hematuria, Retention , Other Musculoskeletal: negative: Neck Pain, Shoulder Pain, Arm Pain, Back Pain, Hand Pain, Leg Pain, Foot Pain, Other Skin: negative: Rash, Lesions, Gorge, Bruising, Other - Medications/Allergies Allergies/Adverse Reactions: Allergies Allergy/AdvReac Type Severity Reaction Status Date / Time atorvastatin Allergy Intermediate SEVERE Verified 11/24/17 11:27 MUSCLE CRAMPING Medications: Current Medications Acetaminophen (Tylenol) 650 mg PO Q4H PRN PRN Reason: MOODY/ T > 101F; Mild Pain (1-3) Al Hydroxide/Mg Hydroxide (Maalox) 15 ml PO Q4H PRN PRN Reason: Heartburn or Indigestion Artificial Tears (Tears Naturale) 0 drop EA EYE PRN PRN PRN Reason: Dry Eyes Aspirin (Ecotrin) 81 mg PO BID QUE Last Admin: 12/01/17 08:53 Dose: 81 mg Diphenhydramine HCl (Benadryl) 25 mg IM/IV Q3H PRN PRN Reason: Itching Diphenhydramine HCl (Benadryl) 25 mg PO Q3H PRN PRN Reason: Itching Fentanyl (Fentanyl Cadd) 0 mcg IV INF PRN PRN Reason: Pain Ferrous Gluconate (Fergon) 324 mg PO BID [facility] Last Admin: 12/01/17 08:53 Dose: 324 mg Guaifenesin (Robitussin Sf) 200 mg PO Q4H PRN PRN Reason: Cough Hydralazine HCl (Apresoline) 10 mg SLOW IVP Q4H PRN PRN Reason: Systolic BP > 180 Last Admin: 11/30/17 21:05 Dose: 10 mg Hydrochlorothiazide (Hydrochlorothiazide) 25 mg PO DAILY [facility] Last Admin: 12/01/17 08:53 Dose: 25 mg Bupivacaine HCl 50 ml/ Sodium (Chloride) 100 mls @ 0 mls/hr NERVE BLCK INF [facility] PRN Reason: As Directed Last Admin: 11/30/17 23:38 Dose: 100 mls Fentanyl Citrate 2,000 mcg/ (Sodium Chloride) 100 mls @ 0 mls/hr IV INF [facility] PRN Reason: As Directed Iron/Minerals/Multivitamins (Theragran M) 1 tab PO DAILY [facility] Last Admin: 12/01/17 08:53 Dose: 1 tab Loperamide HCl (Imodium) 2 mg PO PRN PRN PRN Reason: Diarrhea/Loose Stools Magnesium Hydroxide (Milk Of Magnesium) 30 ml PO DAILYPRN PRN PRN Reason: Constipation Metformin HCl (Glucophage) 500 mg PO BID [facility] Last Admin: 12/01/17 08:53 Dose: 500 mg Mineral Oil/White Petrolatum (Eucerin Cream) 0 gm TOP BIDPRN PRN PRN Reason: Dry Skin Naloxone HCl (Narcan) 0.2 mg IV Q5MIN PRN PRN Reason: RR <8 or pt obtun/unarousable Ondansetron HCl (Zofran) 4 mg IVP Q6H PRN PRN Reason: Nausea/Vomiting Ondansetron HCl (Zofran Odt) 4 mg PO Q6H PRN PRN Reason: Nausea/Vomiting Pantoprazole Sodium (Protonix) 40 mg PO DAILY [facility] Last Admin: 12/01/17 08:53 Dose: 40 mg Phenol (Chloraseptic [place] 180 Ml Bot) 0 ml PO PRN PRN PRN Reason: Sore Throat Last Admin: 11/30/17 18:33 Dose: 1 sprays Pregabalin (Lyrica) 50 mg PO DAILY [facility] Last Admin: 12/01/17 08:53 Dose: 50 mg Promethazine HCl (Phenergan) 12.5 mg IM Q4H PRN PRN Reason: Nausea/Vomiting Senna (Senokot) 2 tab PO HSPRN PRN PRN Reason: Constipation Senna/Docusate Sodium (Senokot S) 2 tab PO BID QUE Last Admin: 12/01/17 08:53 Dose: 2 tab Sodium Chloride (Flush - Normal Saline) 10 ml IVF PRN PRN PRN Reason: Saline Flush Sodium Chloride (Anderson Nasal [place] 0.65%) 0 ml EA NARE QIDPRN PRN PRN Reason: Nasal Congestion Zolpidem Tartrate (Ambien) 5 mg PO HSPRN PRN PRN Reason: Insomnia
--- NOTE | 2017-12-01 13:29 | PRG ---
DATE OF SERVICE: 12/01/2017 DATE OF ADMISSION: 11/30/2017 DATE OF DISCHARGE: Pending. DATE OF CONSULTATION: 11/30/2017 PRIMARY DISCHARGE DIAGNOSES: Status post left total knee replacement. SECONDARY DISCHARGE DIAGNOSES: Gastroesophageal reflux disease, hypertension, dyslipidemia, lumbar stenosis, diabetes type 2, osteoarthritis. PRIMARY PROCEDURES AND OPERATIONS: Left total knee replacement. RADIOLOGICAL INVESTIGATION: Knee x-ray. SIGNIFICANT DATA: Hemoglobin 9.7. DISCHARGE MEDICATIONS: The patient will continue following medications; hydrochlorothiazide 25 mg p.o. daily, metformin 500 mg p.o. b.i.d., Protonix 40 mg p.o. daily, Lyrica 50 mg p.o. daily, naproxen 220 mg p.o. daily p.r.n. The patient will be given aspirin and pain medication and that we will defer to primary team. CONTRAINDICATIONS: None. CODE STATUS: FULL CODE. INPATIENT CONSULTANTS: Dr. Shane Gaona was primary while in hospital. Sound Team was consulted for medical comanagement. TEST RESULTS PENDING ON DISCHARGE: None. ALLERGIES: LIPITOR. DISCHARGE PLAN: Post hospital, the patient will follow up with primary care physician and Dr. Shane Gaona as instructed. The patient's primary care physician is Dr. Jerrod Smith. HOSPITAL COURSE: A 72-year-old male who was admitted by Dr. Shane Gaona for left total knee replacement which was done on 11/30/2017 and after surgery at [facility], Sound Team was consulted for medical comanagement. The patient medical problem remains stable, we resumed his home medications. The patient's pain was controlled with nerve block as well as SECONDARY SET UP MAN. The patient did well with physical therapy. The patient is planned for discharge most likely tomorrow. The patient does not need any ongoing medical need at this point. We will be available in hospital if the patient stays as needed basis only. Otherwise, we will sign off on this patient. The patient is doing relatively well with [facility] protocol treatment. The patient is seen and examined at bedside today. Please see my progress note from today for further details. MTDD
[2017-12-01] MEDS: Bupivacaine 0.5% 50 ML in Sodium Chloride 0.9% 50 ML NERVE BLCK SCH (16:38)
[2017-12-02 07:54] LABS: Hemoglobin 9.5 g/dL (14.0-18.0); Mean Corpuscular HGB CONC 32.2 g/dL (32.0-36.0); Mean Corpuscular Hemoglobin 28.4 pg (27.0-31.0); Mean Corpuscular Volume 88.2 fl (80.0-94.0); Mean Platelet Volume 8.8 fL (7.4-10.4); Platelet Count 243 thou/uL (130-400); RBC Distribution Width 16.8 % (11.5-14.5); Red Blood Cell (RBC) Count 3.33 mill/uL (4.70-6.10)
[2017-12-02] MEDS: metFORMIN 500 MG TAB PO SCH (08:23)
[2017-12-02] MEDS: Aspirin 81 mg Enteric Coated Tablet PO SCH (08:23)
[2017-12-02] MEDS: Multivitamin W/ Minerals 1 TAB PO SCH (08:23)
[2017-12-02] MEDS: Senokot S 8.6-50 MG TAB PO SCH (08:23)
[2017-12-02] MEDS: Hydrochlorothiazide 25 MG TAB PO SCH (08:23)
[2017-12-02] MEDS: Ferrous Gluconate 324 MG TAB PO SCH (08:23)
[2017-12-02] MEDS: Pregabalin 50 MG CAP PO SCH (08:24)
[2017-12-02 08:30] VITALS: BP 119/62; TEMP 98.4
[2017-12-02] MEDS ORDERED: HYDROcodone/Acetaminophen 10/325 mg Tablet PO PRN ×2 (10:09)
== END 2017-12-02 10:45 | disposition home or self-care (01) | DRG 470 ==
LOC: SURG A 11-30 06:50 → SJJU 11-30 12:03
PROVIDERS: ADMIT Orthopaedic Surgery; ATTEND Orthopaedic Surgery
PROC: 0SRD0J9 Replacement of Left Knee Joint with Synthetic Substitute, Cemented, Open Approach (ICD-10-PCS; principal; 2017-11-30)
DX: M17.12 Unilateral primary osteoarthritis, left knee (principal); E78.5 Hyperlipidemia, unspecified; K21.9 Gastro-esophageal reflux disease without esophagitis; M48.061 Spinal stenosis, lumbar region without neurogenic claudication; I10 Essential (primary) hypertension; Z79.4 Long term (current) use of insulin; F17.210 Nicotine dependence, cigarettes, uncomplicated
CPT/HCPCS: 36415; 36416; 85027; C1713; C1776; G8978-GP-CM; G8979-GP-CK; J0360; J0670; J1200; J2001; J2250; J2405; J2704; J3010; J3370; J3490; J7050

== ENCOUNTER 2018-11-24 09:27 | Outpatient (CLI) | payer MEDICARE ==
--- NOTE | 2018-11-24 10:40 | ULT ---
FEXAM:Abdominal aortic ultrasound HISTORY: Aortic aneurysm screening COMPARISON: None FINDINGS:Real-time imaging of the abdominal aorta was performed. The AP dimension of the proximal aor ta is 1.6 cm the mid A aorta measures 1.4 cm and distally 1.6 cm. The right and left common iliac art eries are less than 1 cm. IMPRESSION:No evidence of aortic aneurysm.
== END 2018-11-24 09:28 | disposition home or self-care (01) ==
LOC: SCSULT 09:27
PROVIDERS: ATTEND Family Medicine
DX: Z13.6 Encounter for screening for cardiovascular disorders (principal)
CPT/HCPCS: 76706

== ENCOUNTER 2019-01-07 17:38 | Inpatient (IN) | payer MEDICARE ==
[~2019-01-07 17:38] MED LIST: ISOVUE-370 76%-LOCM 1 ML ONE
--- NOTE | 2019-01-07 20:18 | CT ---
CTA HEAD WITH AND WITHOUT CONTRAST 01/07/19 Multiple axial tomograms obtained through the head without IV enhancement. Tomograms obtained with I V enhancement following an angio protocol with multiplanar reconstruction and 3D post processing. INDICATIONS: Left arm weakness. CT HEAD WITHOUT CONTRAST: Ventricles have normal size and position. There is no evidence of intracranial hemorrhage or mass. Th ere is no evidence of acute infarct identified. No change from the CT head from [place] performed earlier today. IMPRESSION: No acute finding. CTA HEAD: Axial tomograms obtained through the head with angio protocol. The intracranial internal carotid arteries are patent. There is atherosclerotic change with atheroscl erotic calcification in the intracranial precavernous portion of the left ICA. There is luminal narro wing in this region of the left ICA. Calcification seen in the cavernous portions of both ICAs sugges ting mild stenosis approaching 50% diameter. The M1 segment of both middle cerebral arteries are patent. No stenosis or occlusion seen. The M2 and M3 branches appear symmetric. Anterior cerebral arteries are patent. Basilar artery is patent. The posterior cerebral arteries appear patent and symmetric. IMPRESSION: 1. Calcified plaque is seen in the intracranial portions of both internal carotid arteries. This appears to produce mild to moderate stenosis in the precavernous portions of the left ICA. Mild to moderate stenosis seen in both cavernous ICAs. 2. The cerebral arteries appear patent and symmetric. CTA NECK: Multiple axial tomograms obtained through the neck following an angio protocol with multiplanar recon structions and 3D post processing. INDICATIONS: Left arm weakness. Stroke protocol. FINDINGS: Atherosclerotic changes at the origin of the arch vessels. This appears to produce mild stenosis at t he origin of the left common carotid. This appears less than 50% diameter. Common carotid arteries are patent bilaterally. There is atherosclerotic calcification seen in both distal common carotid arteries and in both caroti d bulbs. Dense calcification at the origin of the left internal carotid artery is seen. This inhibits stenosis determination; however, the degree of stenosis does appear to be hemodynamically significant and is estimated in the 80% diameter range. There is dense calcification in the right bulb and right proximal ICA. There is also significant sten osis at the origin of the right ICA also estimated in the 70 to 80% diameter range. The vertebral arteries appear patent and symmetric. Soft tissues unremarkable. IMPRESSION: Evidence of hemodynamically significant stenosis at the origin of both internal carotid arteries with dense calcified plaque present in the bulbs and proximal ICAs bilaterally. POS: AGW
[2019-01-07] MEDS ORDERED: Acetaminophen 325 MG TAB PO PRN (22:14)
[2019-01-07] MEDS ORDERED: Dextrose 5% in Water 1,000 ML IV PRN (23:58)
[2019-01-07] MEDS ORDERED: Insulin Regular 300 UNITS/3 ML VIAL SC PRN ×2 (23:58)
[2019-01-07] MEDS ORDERED: Dextrose 50% Abboject 50 ML SYRINGE SLOW IVP PRN (23:58)
[2019-01-08] MEDS ORDERED: hydrALAZINE 20 MG/ML VIAL SLOW IVP PRN (00:17)
[2019-01-08] MEDS ORDERED: Ondansetron PF 4 MG/2 ML Vial IVP PRN (00:18)
[2019-01-08] MEDS ORDERED: Ondansetron ODT 4 MG TAB PO PRN (00:18)
[2019-01-08] MEDS ORDERED: Acetaminophen 325 MG TAB PO PRN (00:18)
--- NOTE | 2019-01-08 01:43 | HP ---
The patient was seen and examined on January 07, 2019. PRIMARY CARE PHYSICIAN: Jerrod Smith MD CHIEF COMPLAINT: Left upper extremity weakness. HISTORY OF PRESENT ILLNESS: The patient is a 73-year-old male with diabetes mellitus type 2, hyperlipidemia, hypertension with ongoing tobacco abuse, presented to the emergency room at [facility] with left upper extremity weakness. The patient woke up at 2:00 a.m. and noticed that his left upper extremity was weak. After around 30 minutes or so, this seemed better and he went back to sleep. He woke up again at 4:00 a.m. and he noticed that the left arm was more weaker. He was unable to move his fingers. He then presented to the emergency room. He also had some facial droop. No altered mentation, headache, double vision, blurring of vision, weakness, numbness of any of his extremity reported. He denies any seizures, chest pain, or palpitations. He does not take aspirin on a daily basis. He takes two Aleve every morning. In the emergency room at [facility], his initial vital signs showed temperature 98.6, respirations 16, pulse rate of 73, and blood pressure of 132/81. Initial CT scan of the brain was negative. He was transferred to this facility for hospital admission. At this facility, he underwent CT angiogram of the head and neck that showed bilateral internal carotid artery stenosis. He received aspirin in the emergency room. PAST MEDICAL HISTORY: 1. Hypertension. 2. Diabetes mellitus type 2 with recent A1c of 5.7 on November 16, 2018. 3. Hyperlipidemia with recent fasting lipid profile showing HDL of 38, LDL 106, cholesterol 162 with triglyceride 89 (November 16, 2018). 4. Statin intolerance. 5. Hypertension. 6. Ongoing tobacco abuse. 7. Iron deficiency anemia. 8. Peptic ulcer disease, on PPI. 9. Hypertension. 10. Diverticulosis. 11. Degenerative joint disease. 12. Significant claustrophobia. 13. Peripheral vascular disease. 14. Peripheral neuropathy. PAST SURGICAL HISTORY: 1. EGD. 2. Colonoscopy. 3. Bilateral knee surgery. 4. Decompressive laminectomy of thoracic and lumbar spine. 5. Bilateral knee arthroscopic surgery. ALLERGIES: THE PATIENT IS UNABLE TO TOLERATE STATINS. HE CANNOT TOLERATE HYDROCHLOROTHIAZIDE WELL. FAMILY HISTORY: Father at age of 82 with malignancy. Diabetes and heart disease runs in his family. SOCIAL HISTORY: He continues to smoke up to half pack a day for more than 50 years. He is retired, . Denies any alcohol or drug use. He makes his own decision with the help of his family. He is full code. CURRENT MEDICATIONS: 1. Amlodipine 5 mg daily. 2. Ferrous sulfate 325 mg daily. 3. Lisinopril 20 mg daily. 4. Metformin 500 mg b.i.d. 5. Omeprazole 20 mg daily. 6. Lyrica 50 mg daily. REVIEW OF SYSTEMS: All other review of systems was reviewed and were found negative. PHYSICAL EXAMINATION: VITAL SIGNS: Current vital signs showed temperature 97.9, pulse rate of 69, respiration of 16, blood pressure 109/69, and O2 saturation 98% on room air. GENERAL: A 73-year-old male, in no apparent distress. Left upper extremity still weak, facial droop slowly improving. HEENT: Head, atraumatic and normocephalic. Sclerae are anicteric. Dry mucous membranes. No oral lesion. NECK: Supple. No JVD. Bilateral carotid bruit present. HEART: S1 and S2 present. Regular rate and rhythm. 2/6 systolic murmur over the aortic area. No heaves or pulsation. ABDOMEN: Soft and nontender. Bowel sounds present. No rebound or guarding. LUNGS: Clear to auscultation bilaterally. No wheezing, rales, or rhonchi. NEUROLOGY: Cranial nerves 2 through 12 are normal on examination. Power was 5/5 in all extremities except for left upper extremity. The patient is unable to move the fingers of his left hand. Sensation to touch was normal bilaterally. [id number] test was normal on the right. SKIN: Warm and dry. LYMPH NODES: No palpable lymph nodes in the neck. PERIPHERAL VASCULAR: Radial pulses palpable bilaterally. MUSCULOSKELETAL: No joint swelling tenderness. LABORATORY FINDINGS: CBC showed WBC 10.8 with hemoglobin 10.3, hematocrit 34.1, and platelet count of 350. PT, INR, and PTT in normal range. Chemistry showed sodium 139, potassium 4.4, chloride 106, bicarb 21, BUN 19, and creatinine 0.78. LFTs in normal range. Troponin was negative. Recent A1c and fasting lipid profile as discussed above. Urinalysis was negative for WBC bacteria. DIAGNOSTIC DATA: Chest x-ray by my review was negative for infiltrate. CT scan of the brain by my review as discussed above. EKG by my review showed sinus rhythm with left axis deviation and right bundle-branch block. There was left ventricular hypertrophy. IMPRESSION: 1. 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 2. Bilateral internal carotid artery stenosis. 3. Diabetes mellitus type 2. 4. Hypertension with hypertensive heart disease. 5. Ongoing tobacco abuse. 6. Statin intolerance. 7. Chronic iron deficiency anemia. 8. Peptic ulcer disease. 9. Diverticulosis. 10. Degenerative joint disease. 11. Claustrophobia. 12. Peripheral vascular disease. PLAN: The patient will be monitored in the stroke unit. Neurology and Cardiovascular will be consulted. The patient recently had a fasting lipid profile and A1c. Echocardiogram will be obtained. The patient would like to discuss with Dr. Duran if MRI is necessary due to extreme claustrophobia. We will start him on IV fluids due to blood pressure in low range as well as contrast exposure. We will hold lisinopril and amlodipine for now. The patient is refusing statins as well due to statin intolerance. We will start him on insulin sliding scale. Please note, the patient was seen and examined on 07 Jan 2019. The patient will require 2 to 3 days for stabilization. Stroke Team will be consulted. Job ID: [id number]
[2019-01-08 03:43] VITALS: BMI 26.9
[2019-01-08] MEDS: Sodium Chloride 0.9% 1,000 ML IV SCH ×2 (04:25→13:31)
[2019-01-08] MEDS ORDERED: OMEPRAZOLE MAGNESIUM 20 MG PO SCH (09:00)
[2019-01-08] MEDS ORDERED: Pregabalin 50 MG CAP PO SCH (09:00)
[2019-01-08] MEDS ORDERED: Pregabalin 25 MG CAP PO SCH (09:00)
[2019-01-08] MEDS ORDERED: Enoxaparin Sodium 40 MG/0.4 ML SYRINGE SC SCH (09:00)
[2019-01-08] MEDS ORDERED: Aspirin 325 mg Enteric Coated Tablet PO SCH (09:00)
--- NOTE | 2019-01-08 15:04 | CON ---
DATE OF CONSULTATION: HISTORY OF PRESENT ILLNESS: This is a 73-year-old gentleman, who yesterday morning while still asleep, awakened to find out that his left hand did not work. He fell back asleep, woke up an hour or so later, and his arm was not usable. He presented to the [facility] and transferred here, where a CTA of the head and neck were obtained. He has had some improvement in his proximal motor function, but his hand is still non-usable. He has had a facial droop, but otherwise denies any other symptoms. PAST MEDICAL HISTORY: Includes hypertension, diabetes mellitus, and a longstanding smoking history. He has had some cholesterol elevation, but has been statin intolerant. He has a history of arthritis, for which he has had a number of surgeries. PAST SURGICAL HISTORY: Includes back surgery, bilateral knee replacements as well as bilateral cataract surgery more recently. SOCIAL HISTORY: He is , although his does stay with him about half the time. He is a retired school counsellor. He smokes about a half pack of cigarettes a day. PHYSICAL EXAMINATION: GENERAL: On examination, he is an elderly gentleman, no distress. NECK: Bilateral harsh carotid bruits. CARDIAC: Regular rate and rhythm. No murmurs. LUNGS: Clear to auscultation with an increase in his chest AP diameter. ABDOMEN: Soft and nontender. Unable to palpate organomegaly or masses. EXTREMITIES: He has palpable femoral pulses bilaterally as well as a left popliteal pulse. The right popliteal pulse is absent and I do not appreciate any pedal pulses. The feet are pink and warm. LABORATORY DATA: Laboratory values demonstrate normal creatinine. His hemoglobin is 10.3, and this is evidently a chronic problem. His last A1c was about 6. IMAGING DATA: Review of his CT scan reveals calcified carotid bulb as well as calcification of the siphon bilaterally and intracranially. He also has common carotid artery disease calcification bilaterally, left worse than right, although noncritical disease in the common carotid arteries. ASSESSMENT AND PLAN: The amount of stenosis in the right internal carotid artery probably is about 70%, probably similar on the left. At this time, I think he will stop smoking based on our conversation today and he has been started on aspirin therapy. I will follow up with him in about 2 weeks to see how he is progressing with his stroke rehab and consideration may be given to a right carotid endarterectomy at that time. Job ID: [id number]
[2019-01-08 15:29] VITALS: BP 106/61; TEMP 97.5
--- NOTE | 2019-01-08 19:45 | CON ---
DATE OF CONSULTATION: 01/08/2019 CONSULTING PHYSICIAN: Hospitalist Service. IMPRESSION: 1. Probable small vessel stroke. 2. Bilateral carotid stenosis. 3. Diabetes. 4. Hypertension. PLAN: 1. Continue aspirin. 2. Carotid endarterectomy as per Vascular Surgery's recommendations. HISTORY OF PRESENT ILLNESS: Mr. Sanches is a 73-year-old man, who presented with a left upper extremity weakness. There was no associated headache, nausea, vomiting, vertigo, chest pain, shortness of breath, double vision, leg weakness, or difficulty swallowing. His CT of the brain did not show any acute hemorrhage. CT angiogram shows bilateral carotid disease in the 70% to 80% range. He has not had any difficulty speaking or swallowing. Echocardiogram is pending. PAST MEDICAL HISTORY: Diabetes, hypertension, and statin intolerance. ALLERGIES: NONE OTHER THAN STATIN INTOLERANCE. SOCIAL HISTORY: Positive for tobacco use. FAMILY HISTORY: Noncontributory. REVIEW OF SYSTEMS: Ten-system review of systems is otherwise negative. PHYSICAL EXAMINATION: VITAL SIGNS: Blood pressure 113/78, pulse 59, respirations 16, and temperature 98.3. HEENT: Pupils are equal and reactive. Conjunctivae clear. Oropharynx clear. Cranium, normocephalic and atraumatic. NECK: Supple. No lymphadenopathy. EXTREMITIES: No cyanosis or edema. NEUROLOGIC: Alert and appropriate. His speech is fluent and clear. Cranial nerve exam shows some flattening of the left nasolabial fold. Motor exam shows antigravity strength in the left arm with moderate weakness both proximally and distally. His leg strength appears to be intact. Sensations intact to light touch. He has no balance difficulties. LABORATORY DATA: Laboratory studies were reviewed. Imaging was reviewed. SUMMARY: A 73-year-old gentleman with limited deficit secondary to a small vessel stroke. He has bilateral carotid disease in the critical range. Dr. Lund has been consulted and there is a plan for delayed treatment. Otherwise, we he cannot tolerate statins. Therefore, antiplatelet therapy and smoking discontinuation would be the only path at this point. Job ID: [id number]
--- NOTE | 2019-01-08 21:10 | DIS ---
DATE OF ADMISSION: 01/07/2019 DATE OF DISCHARGE: 01/08/2019 PRIMARY CARE PROVIDER: Dr. Jerrod Smith. DISCHARGE DIAGNOSES: 1. Small-vessel ischemic cerebrovascular accident. 2. Bilateral carotid stenosis. CONDITION OF PATIENT ON THE DAY OF DISCHARGE: Stable. I assessed Mr. Sanches on the day of discharge. He reports that he has weakness in the left hand. He denies any chest pain or shortness of breath. Vital signs are stable. S1 and S2 are heard, regular. Lungs are clear to auscultation bilaterally. DISCHARGE MEDICATIONS: 1. Aspirin 325 mg daily. 2. Lyrica 50 mg daily. 3. Omeprazole 20 mg daily. 4. Metformin 500 mg 2 times a day. 5. Lisinopril 20 mg daily. 6. Ferrous sulfate 325 mg daily. 7. Amlodipine 5 mg daily. Please note that I recommended Mr. Sanches to be started on a statin. He reports having adverse effects to statins in the past and he will discuss with his primary care provider regarding the same. CONSULTATIONS DURING THIS HOSPITALIZATION: CV Surgery, Dr. Lund and Neurology, Dr. Duran. HOSPITAL COURSE: Mr. Sanches is a pleasant 73-year-old gentleman, who was admitted to [facility] on 01/08/2019, for left upper extremity weakness. Please refer to Dr. Yin's history and physical note dated 01/08/2019, for further details. He did not wish to have MRI of the brain at this time due to claustrophobia. He was seen by Cardiovascular Surgery and Neurology Service. He has been cleared for discharge by both services. Cardiovascular Surgery will follow up with him in a couple of weeks time to discuss options regarding bilateral carotid artery stenosis. The patient has been started on aspirin. He did not wish to be started on a statin because of side effects in the past and he will discuss with his primary care provider. He has also been advised to stop smoking. 2D echocardiogram showed left ventricular ejection fraction of 60% to 65%, grade 1/3 diastolic dysfunction, mild concentric left ventricular hypertrophy, moderately dilated left atrium, mitral annular calcification, mild mitral regurgitation, mild tricuspid regurgitation, calcified aortic valve with decreased cusp opening and no evidence of aortic valve regurgitation. He has moderate aortic valve stenosis with aortic valve area of 1.2 square cm. Many thanks for allowing me to participate in your patient's care. Please feel free to contact me with any questions or concerns. DISCHARGE DESTINATION: Home. TIME SPENT: Total amount of time spent coordinating this discharge: 32 minutes. Job ID: [id number]
--- NOTE | 2019-01-09 15:35 | CT ---
CTA HEAD AND NECK WITH AND WITHOUT CONTRAST 01/07/19 Multiple axial tomograms obtained through the head without IV enhancement. Tomograms obtained with IV enhancement following an angio protocol with multiplanar reconstruction and 3D post processing. INDICATIONS: Left arm weakness. CT HEAD WITHOUT CONTRAST: Ventricles have normal size and position. There is no evidence of intracranial hemorrhage or mass. There is no evidence of acute infarct identified. No change from the CT head from [place] performed earlier today. IMPRESSION: No acute finding. CTA HEAD: Axial tomograms obtained through the head with angio protocol. The intracranial internal carotid arteries are patent. There is atherosclerotic change with atherosclerotic calcification in the intracranial precavernous portion of the left ICA. There is luminal narrowing in this region of the left ICA. Calcification seen in the cavernous portions of both ICAs suggesting mild stenosis approaching 50% diameter. The M1 segment of both middle cerebral arteries are patent. No stenosis or occlusion seen. The M2 and M3 branches appear symmetric. Anterior cerebral arteries are patent. Basilar artery is patent. The posterior cerebral arteries appear patent and symmetric. IMPRESSION: 1. Calcified plaque is seen in the intracranial portions of both internal carotid arteries. This appears to produce mild to moderate stenosis in the precavernous portions of the left ICA. Mild to moderate stenosis seen in both cavernous ICAs. 2. The cerebral arteries appear patent and symmetric. CTA NECK: Multiple axial tomograms obtained through the neck following an angio protocol with multiplanar reconstructions and 3D post processing. INDICATIONS: Left arm weakness. Stroke protocol. FINDINGS: Atherosclerotic changes at the origin of the arch vessels. This appears to produce mild stenosis at the origin of the left common carotid. This appears less than 50% diameter. Common carotid arteries are patent bilaterally. There is atherosclerotic calcification seen in both distal common carotid arteries and in both carotid bulbs. Dense calcification at the origin of the left internal carotid artery is seen. This inhibits stenosis determination; however, the degree of stenosis does appear to be hemodynamically significant and is estimated in the 80% diameter range. There is dense calcification in the right bulb and right proximal ICA. There is also significant stenosis at the origin of the right ICA also estimated in the 70 to 80% diameter range. The vertebral arteries appear patent and symmetric. Soft tissues unremarkable. IMPRESSION: Evidence of hemodynamically significant stenosis at the origin of both internal carotid arteries with dense calcified plaque present in the bulbs and proximal ICAs bilaterally.
== END 2019-01-08 16:56 | disposition home or self-care (01) | DRG 66 ==
LOC: ERS 17:38 → 2SE 22:04
PROVIDERS: ADMIT Family Medicine; ATTEND Family Medicine
DX: I63.9 Cerebral infarction, unspecified (principal); R29.810 Facial weakness; G83.24 Monoplegia of upper limb affecting left nondominant side; M19.90 Unspecified osteoarthritis, unspecified site; F40.240 Claustrophobia; E11.51 Type 2 diabetes mellitus with diabetic peripheral angiopathy without gangrene; I08.3 Combined rheumatic disorders of mitral, aortic and tricuspid valves; D50.9 Iron deficiency anemia, unspecified; E78.00 Pure hypercholesterolemia, unspecified; F17.210 Nicotine dependence, cigarettes, uncomplicated; I65.23 Occlusion and stenosis of bilateral carotid arteries; Z79.899 Other long term (current) drug therapy; Z88.8 Allergy status to other drugs, medicaments and biological substances; Z79.84 Long term (current) use of oral hypoglycemic drugs; R29.702 NIHSS score 2; E11.42 Type 2 diabetes mellitus with diabetic polyneuropathy; I11.9 Hypertensive heart disease without heart failure; Z96.653 Presence of artificial knee joint, bilateral
CPT/HCPCS: 36416; 70496; 70498; 93306; J1650; Q9966

== ENCOUNTER 2019-03-17 13:12 | Outpatient (CLI) | payer MEDICARE ==
[2019-03-17 15:01] LABS: Hemoglobin 10.6 g/dL (14.0-18.0); Mean Corpuscular HGB CONC 31.3 g/dL (32.0-36.0); Mean Corpuscular Hemoglobin 26.1 pg (27.0-31.0); Mean Corpuscular Volume 83.6 fL (78.0-98.0); Mean Platelet Volume 9.1 fL (7.4-10.4); Platelet Count 297 thou/uL (130-400); RBC Distribution Width 17.7 % (11.5-14.5); Red Blood Cell (RBC) Count 4.06 mill/uL (4.70-6.10); White Blood Cell (WBC) Count 11.8 thou/uL (4.8-10.8)
[2019-03-17 15:29] LABS: Anion Gap 14 mmol/L (10-20); BUN (Urea Nitrogen) 18 mg/dL (8.4-25.7); Calc. Creatinine Clearance 0 mL/min (70-130); Calcium 9.6 mg/dL (7.8-10.44); Carbon Dioxide 24 mmol/L (23-31); Chloride 104 mmol/L (98-107); Estimated GFR-MDRD 85; Glucose 90 mg/dL (83-110); Potassium 4.8 mmol/L (3.5-5.1); Sodium 137 mmol/L (136-145)
== END 2019-03-17 13:13 | disposition home or self-care (01) ==
LOC: LABBT 13:12
PROVIDERS: ATTEND Thoracic Surgery (Cardiothoracic Vascular Surgery)
DX: Z01.812 Encounter for preprocedural laboratory examination (principal); I65.21 Occlusion and stenosis of right carotid artery
CPT/HCPCS: 80048; 85027

== ENCOUNTER 2019-03-17 13:30 | Inpatient (IN) | payer MEDICARE ==
[2019-03-20] MEDS ORDERED: ceFAZolin Sodium (SDC) 2 GM/100 ML BAG ONE (08:42)
[2019-03-20] MEDS ORDERED: Heparin 5,000 UNITS/ML VIAL ONE (11:22)
[2019-03-20] MEDS ORDERED: Protamine Sulfate 50 MG/5 ML VIAL ONE (11:22)
[2019-03-20] MEDS ORDERED: Midazolam HCl 2 mg/2 ml Vial ONE (11:31)
[2019-03-20] MEDS ORDERED: Fentanyl 100 MCG/2 ML VIAL ONE ×2 (11:31→14:14)
[2019-03-20] MEDS ORDERED: hydrALAZINE 20 MG/ML VIAL SLOW IVP PRN (13:35)
[2019-03-20] MEDS ORDERED: Acetaminophen 325 MG TAB PO PRN (13:35)
[2019-03-20] MEDS ORDERED: DOPamine 400 MG/D5W 250 ML 250 ML IVPB PRN (13:35)
[2019-03-20] MEDS ORDERED: Phenylephrine 10 MG/NS 250 ML 250 ML IVPB PRN (13:35)
[2019-03-20] MEDS ORDERED: Fentanyl 100 MCG/2 ML VIAL SLOW IVP PRN ×2 (13:35)
[2019-03-20] MEDS ORDERED: Promethazine HCl 25 MG/ML VIAL IM PRN (13:35)
[2019-03-20] MEDS ORDERED: Ondansetron PF 4 MG/2 ML Vial IVP PRN (13:35)
[2019-03-20] MEDS ORDERED: HYDROcodone/Acetaminophen 5/325 mg Tablet PO PRN ×2 (13:35)
[2019-03-20] MEDS ORDERED: Nitroglycerin 50 MG/250 ML BOT 250 ML IVPB PRN (13:35)
[2019-03-20] MEDS ORDERED: Insulin Regular 300 UNITS/3 ML VIAL SC PRN (13:35)
[2019-03-20] MEDS ORDERED: Sodium Chloride 0.9% 1,000 ML IV SCH (13:45)
[2019-03-20] MEDS ORDERED: hydrALAZINE 20 MG/ML VIAL ONE (14:23)
[2019-03-20] MEDS ORDERED: Labetalol HCl 100 MG/20 ML VIAL ONE ×2 (14:29→16:42)
[2019-03-20 15:05] VITALS: BMI 29.0
--- NOTE | 2019-03-20 15:46 | OP ---
DATE OF PROCEDURE: 03/20/2019 PREOPERATIVE DIAGNOSIS: Bilateral carotid disease. PROCEDURE PERFORMED: Right carotid endarterectomy with bovine patch angioplasty. ANESTHESIA: General. ESTIMATED BLOOD LOSS: Less than 100. DESCRIPTION OF PROCEDURE: After adequate anesthesia had been obtained, right neck was prepped and draped. Previous ultrasound had guided where to make the incision in relation to the carotid bulb and this was carried out. It was ultimately extended caudally slightly to allow access to the more proximal common carotid artery due to heavy calcification in the common carotid. After isolating internal, external, and common carotid arteries without specifically identifying hypoglossal or vagal nerves, the patient was heparinized. ACT was adequate and clamps were applied. Arteriotomy performed and a 12-Nepali shunt was inserted. Following this, endarterectomy was performed with satisfactory tapering distally and proximally. The area was thoroughly irrigated on a number of occasions to remove any loose debris. Following the endarterectomy, the patch was used to close the arteriotomy. Prior to completing the suture line, the shunt was removed and vessel was back flushed, forward flushed, and the area again irrigated. There was some bleeding from the tip of the anastomosis and this was controlled with single [id number] Prolene suture. Following this, flow was restored up to external and then the internal carotid artery. Protamine was given to partially reverse the heparin. Additional hemostasis was obtained, and after obtaining good complete hemostasis, the wound was thoroughly irrigated and closed in layers. The patient is to be taken to the ICU in guarded condition. Job ID: [id number]
[2019-03-20] MEDS ORDERED: Vecuronium 10 MG VIAL ONE (16:42)
[2019-03-20] MEDS ORDERED: Heparin 10,000 UNITS/ 10 ML VIAL ONE (16:42)
[2019-03-20] MEDS ORDERED: ePHEDrine 50 MG/ML VIAL ONE (16:42)
[2019-03-20] MEDS ORDERED: PHENYLEPHRINE-NS 100 MCG/ML 10 ML SYRINGE ONE (16:42)
[2019-03-20] MEDS ORDERED: Lidocaine 1% PF 5 ML VIAL ONE (16:42)
[2019-03-20] MEDS ORDERED: Ondansetron PF 4 MG/2 ML Vial ONE (16:42)
[2019-03-20] MEDS ORDERED: Dexamethasone 20 MG/5 ML VIAL ONE (16:42)
[2019-03-20] MEDS ORDERED: Glycopyrrolate 0.2 MG/ML 5 ML SYRINGE ONE (16:42)
[2019-03-20] MEDS ORDERED: PROPOFOL 200 MG/20 ML VIAL ONE (16:42)
[2019-03-20] MEDS ORDERED: metFORMIN 500 MG TAB PO SCH (17:00)
[2019-03-20] MEDS ORDERED: Pregabalin 25 MG CAP PO SCH (21:00)
[2019-03-20] MEDS ORDERED: Amlodipine 5 MG TAB PO SCH (21:00)
[2019-03-20] MEDS ORDERED: Lisinopril 20 MG TAB PO SCH (21:00)
[2019-03-21 02:12] VITALS: BP 171/61
[2019-03-21 03:32] VITALS: TEMP 97.6
[2019-03-21] MEDS ORDERED: Aspirin Chewable 81 MG TAB PO SCH (09:00)
[2019-03-21] MEDS ORDERED: Prevnar 13-Val Conj/PF 0.5 ML SYRINGE IM ONE (15:30)
--- NOTE | 2019-03-21 15:46 | DIS ---
DATE OF ADMISSION: 03/20/2019 DATE OF DISCHARGE: 03/21/[address] Vasquez for hypertension, found to have bilateral carotid artery disease following a right hemispheric stroke. He underwent a right carotid endarterectomy on this admission yesterday. Postoperatively, his blood pressure was somewhat elevated as it had been prior to surgery. He states that his medicines have been getting adjusted by Dr. Vasquez at home because they were felt to be too low and then too high. It should be noted that his blood pressure readings in his right arm were lower than his left arm suggesting stenosis perhaps in the right subclavian artery, although this did not appear to be the case when reviewing his CT scan from earlier this year. In any event, his left arm seems to be giving the highest blood pressure. He will be discharged today on his home medicines with no prescriptions. Discharge and followup instructions have been given. He is to follow up with Dr. Vasquez later this week in regard to his blood pressure and I will see him in about 2 weeks. Job ID: [id number]
== END 2019-03-21 08:56 | disposition home or self-care (01) | DRG 39 ==
LOC: SURG A 03-20 07:43 → CCU 03-20 14:54
PROVIDERS: ADMIT Thoracic Surgery (Cardiothoracic Vascular Surgery); ATTEND Thoracic Surgery (Cardiothoracic Vascular Surgery)
PROC: 03CH0ZZ Extirpation of Matter from Right Common Carotid Artery, Open Approach (ICD-10-PCS; principal; 2019-03-20)
PROC: 03UH0KZ Supplement Right Common Carotid Artery with Nonautologous Tissue Substitute, Open Approach (ICD-10-PCS; 2019-03-20)
DX: I65.23 Occlusion and stenosis of bilateral carotid arteries (principal); I10 Essential (primary) hypertension; Z96.653 Presence of artificial knee joint, bilateral; Z88.8 Allergy status to other drugs, medicaments and biological substances; Z01.812 Encounter for preprocedural laboratory examination
CPT/HCPCS: 36416; 80048; 85027; J0360; J0690; J1642; J1644; J2250; J2720; J3010

== ENCOUNTER 2019-05-01 15:30 | Inpatient (IN) | payer MEDICARE ==
[2019-05-01 16:03] VITALS: BMI 26.9
[2019-05-02] MEDS ORDERED: Heparin 5,000 UNITS/ML VIAL ONE (09:35)
[2019-05-02] MEDS ORDERED: Fentanyl 100 MCG/2 ML VIAL ONE ×2 (09:37→12:45)
[2019-05-02] MEDS ORDERED: Midazolam HCl 2 mg/2 ml Vial ONE (09:37)
[2019-05-02] MEDS ORDERED: Bupivacaine/Epinephrine 0.25% 30 ML VIAL ONE (09:42)
[2019-05-02] MEDS ORDERED: Protamine Sulfate 50 MG/5 ML VIAL ONE (09:42)
[2019-05-02 10:05] LABS: #Basophils 0.1 thou/uL (0.0-0.2); #Eosinphils 0.5 thou/uL (0.0-0.7); #Lymphocytes 1.6 thou/uL (1.20-3.40); #Monocytes 0.9 thou/uL (0.11-0.59); #Neutrophils 6.6 thou/uL (1.40-6.50); %Eosinophils 4.8 % (0.0-10.0); %Lymphocytes 16.8 % (21.0-51.0); %Monocytes 9.6 % (0.0-10.0); %Neutrophils 67.9 % (42.0-75.0); Hemoglobin 11.5 g/dL (14.0-18.0); Mean Corpuscular HGB CONC 32.8 g/dL (32.0-36.0); Mean Corpuscular Hemoglobin 27.7 pg (27.0-31.0); Mean Corpuscular Volume 84.3 fL (78.0-98.0); Mean Platelet Volume 9.6 fL (7.4-10.4); Platelet Count 219 thou/uL (130-400); Red Blood Cell (RBC) Count 4.17 mill/uL (4.70-6.10); White Blood Cell (WBC) Count 9.8 thou/uL (4.8-10.8)
[2019-05-02 10:22] LABS: Anion Gap 15 mmol/L (10-20); BUN (Urea Nitrogen) 28 mg/dL (8.4-25.7); Calc. Creatinine Clearance 82 mL/min (70-130); Calcium 9.3 mg/dL (7.8-10.44); Carbon Dioxide 21 mmol/L (23-31); Chloride 103 mmol/L (98-107); Estimated GFR-MDRD 83; Glucose 129 mg/dL (83-110); Potassium 5.2 mmol/L (3.5-5.1); Sodium 134 mmol/L (136-145)
[2019-05-02] MEDS ORDERED: Ondansetron HCl/PF 4 MG/2 ML Vial IVP PRN (11:11)
[2019-05-02] MEDS ORDERED: Ondansetron PF 4 MG/2 ML Vial IVP PRN (14:04)
[2019-05-02] MEDS ORDERED: Fentanyl 100 MCG/2 ML VIAL SLOW IVP PRN ×2 (14:04)
[2019-05-02] MEDS ORDERED: Norepinephrine 8 MG/0.9% NS 250 ML IVPB PRN (14:04)
[2019-05-02] MEDS ORDERED: HYDROcodone/Acetaminophen 5/325 mg Tablet PO PRN ×2 (14:04)
[2019-05-02] MEDS ORDERED: Sodium Chloride 0.9% 1,000 ML IV SCH (14:04)
[2019-05-02] MEDS ORDERED: Acetaminophen 325 MG TAB PO PRN (14:04)
[2019-05-02] MEDS ORDERED: Insulin Regular 300 UNITS/3 ML VIAL SC PRN (14:04)
[2019-05-02] MEDS ORDERED: niCARdipine 25 MG in Sodium Chloride 0.9% 250 ML 250 ML IVPB PRN (14:04)
[2019-05-02] MEDS ORDERED: Promethazine HCl 25 MG/ML VIAL IM PRN (14:04)
[2019-05-02] MEDS ORDERED: hydrALAZINE 20 MG/ML VIAL SLOW IVP PRN (14:04)
[2019-05-02] MEDS ORDERED: PROPOFOL 200 MG/20 ML VIAL ONE (15:09)
[2019-05-02] MEDS ORDERED: Ketorolac Tromethamine 30 MG/ML VIAL ONE (15:09)
[2019-05-02] MEDS ORDERED: Lidocaine 2% PF 100 mg/5 ml Syringe ONE (15:09)
[2019-05-02] MEDS ORDERED: Vecuronium 10 MG VIAL ONE (15:09)
[2019-05-02] MEDS ORDERED: Dexamethasone 20 MG/5 ML VIAL ONE (15:09)
[2019-05-02] MEDS ORDERED: Glycopyrrolate 0.2 MG/ML 5 ML SYRINGE ONE (15:09)
[2019-05-02] MEDS ORDERED: Ondansetron PF 4 MG/2 ML Vial ONE (15:09)
[2019-05-02] MEDS ORDERED: Lidocaine 1% PF 5 ML VIAL ONE (15:09)
[2019-05-02] MEDS ORDERED: Heparin 10,000 UNITS/ 10 ML VIAL ONE (15:09)
[2019-05-02] MEDS ORDERED: PHENYLEPHRINE-NS 100 MCG/ML 10 ML SYRINGE ONE (15:09)
[2019-05-02] MEDS ORDERED: Labetalol HCl 100 MG/20 ML VIAL ONE (15:09)
[2019-05-02 15:21] VITALS: TEMP 97.7
[2019-05-02] MEDS: CEFAZOLIN 2 GM in Premix Bag 1 BAG IVPB SCH (17:17)
[2019-05-02] MEDS ORDERED: metFORMIN 500 MG TAB PO SCH (21:00)
[2019-05-02] MEDS ORDERED: Pregabalin 25 MG CAP PO SCH (21:00)
[2019-05-02] MEDS ORDERED: Amlodipine 5 MG TAB PO SCH (21:00)
[2019-05-02] MEDS ORDERED: Lisinopril 20 MG TAB PO SCH (21:00)
[2019-05-02 23:53] VITALS: BP 160/43
[2019-05-03] MEDS: CEFAZOLIN 2 GM in Premix Bag 1 BAG IVPB SCH (01:57)
--- NOTE | 2019-05-03 05:52 | PDOC.GSPN ---
Surgery Progress Note: Subj - Subjective Narrative: Mr. Sanches is a 74 yo male, post op day 1 from left carotid endarterectomy. He states that he feels good, and is ready to go home. His pain is 1/10 and well controlled. He took off his SCDs last night, and refused to wear them. He had also refused to be on sliding scale insulin, and was waited until he was able to take his oral medications yesterday. He denies any problems with breathing, dizziness, or headache. Surgery Progress Note: Obj - Vital signs Vital signs: Vital Signs - Most Recent Temp Pulse Resp BP Pulse Ox 97.7 F 52 L 14 160/43 H 97 05/02/19 09:34 05/02/19 23:52 05/02/19 09:34 05/02/19 23:52 05/02/19 20:00 Continue to monitor increased blood pressure. He has a history of running a higher pressure. - Physical Exam General: no distress Neck: other (Bruits present bilaterally) Cardiovascular: regular rate and rhythm Respiratory: clear to auscultation Wound: dressing clean,dry,intact, healing well Additional exam: Neurologic: CN VII, CN XII, and CN X intact. No ptosis or miosis present. Surgery Progress Note: Results - Labs Result Diagrams: 05/02/19 09:50 05/02/19 09:50 Surgery Progress Note: A/P - Problem (1) S/P carotid endarterectomy Current Visit: Yes Code(s): Z98.890 - OTHER SPECIFIED POSTPROCEDURAL STATES Status: Acute - Plan Plan: Encourage ambulation Encourage incentive spirometer use Discharge today F/u with Dr. Lund in 2 weeks
[2019-05-03] MEDS ORDERED: Aspirin Chewable 81 MG TAB PO SCH (09:00)
--- NOTE | 2019-05-03 09:31 | OP ---
DATE OF PROCEDURE: 05/02/2019 PREOPERATIVE DIAGNOSIS: Critical left carotid stenosis. PROCEDURE PERFORMED: Left carotid endarterectomy with bovine patch angioplasty. ANESTHESIA: General. ESTIMATED BLOOD LOSS: Less than 100. DESCRIPTION OF PROCEDURE: After anesthesia had been obtained, shoulder roll was placed. Head turned to the right. Ultrasound used for mapping. The patient was then prepped and draped. Incision made. Incision was directly over the carotid bulb. Hypoglossal nerve was widely visualized and a small arterial branch with it was clipped and divided. 7500 units of heparin were given. Clamps were applied. Arteriotomy performed through heavily calcified plaque and a 12-Serbian shunt was placed. Following this, endarterectomy was performed with satisfactory tapering distally. Loose debris was removed and the area thoroughly irrigated, and after obtaining good cleaning out of this area, the bovine patch was secured with a running 6-0 Prolene suture. Prior to completing the suture line, the shunt was removed. Vessel was backflushed and forward flushed and flow restored up the external and then internal carotid artery. Protamine was given to partially reverse the heparin, and after obtaining good hemostasis, the wound was closed in layers. The patient is to be taken to the recovery room. Job ID: [id number]
--- NOTE | 2019-05-03 12:09 | DIS ---
DATE OF ADMISSION: 05/02/2019 DATE OF DISCHARGE: 05/03/2019 The patient was admitted for elective left carotid endarterectomy. Postoperatively, the patient did well with no neurologic deficits. He will be discharged today. He will resume his home medicines and will follow up with me in 2 to 3 weeks. Job ID: [id number]
== END 2019-05-03 08:00 | disposition home or self-care (01) | DRG 39 ==
LOC: SURG B 05-02 09:29 → CCU 05-02 14:43
PROVIDERS: ADMIT Thoracic Surgery (Cardiothoracic Vascular Surgery); ATTEND Thoracic Surgery (Cardiothoracic Vascular Surgery)
PROC: 03CJ0ZZ Extirpation of Matter from Left Common Carotid Artery, Open Approach (ICD-10-PCS; principal; 2019-05-02)
PROC: 03UJ0KZ Supplement Left Common Carotid Artery with Nonautologous Tissue Substitute, Open Approach (ICD-10-PCS; 2019-05-02)
DX: I65.22 Occlusion and stenosis of left carotid artery (principal); I10 Essential (primary) hypertension; E11.9 Type 2 diabetes mellitus without complications; Z79.82 Long term (current) use of aspirin; Z79.84 Long term (current) use of oral hypoglycemic drugs; Z79.899 Other long term (current) drug therapy
CPT/HCPCS: 36416; 80048; 85025; J0360; J0690; J1100; J1642; J1644; J1885; J2001; J2250; J2405; J2704; J2720; J3010

== ENCOUNTER 2020-02-08 08:33 | Outpatient (CLI) | payer MEDICARE ==
--- NOTE | 2020-02-08 11:32 | CT ---
CT ANGIOGRAM NECK WITH CONTRAST: DATE: 02/08/2020 HISTORY: 75-year-old male. ICD-10: "I 73.9, peripheral vascular disease" "Look at his subclavian arteries as they have elevated velocities on the left side" TECHNIQUE: After IV contrast injection, arterial bolus chasing technique scan performed from aortopulmonic windo w. to top of frontal sinuses Coronal and sagittal 3-D MIP reconstructions. FINDINGS: Aortic arch: Ectasia and atherosclerotic plaque. Brachiocephalic: No stenosis. Right subclavian: Heavy calcified and noncalcified plaque proximally, causing severe, 75% or greater stenosis. Distal portion of right subclavian artery and proximal right axillary artery significant partially obscured by streak artifact from adjacent dense IV contrast bolus in the right subclavian v ein. Left subclavian: Multifocal calcified and noncalcified heavy atheromatous plaque in multiple location s. 2.5 cm superior to the origin, approximately 60-75% stenosis. Long segment of heavy plaque from 2 cm proximal to left vertebral artery origin to 3.5 cm distal to t hat, mild stenosis. Focal 60-75% stenosis at left axillary artery Right common carotid: Origin and proximal few centimeters severely partially obscured by streak artif act from contrast bolus in adjacent right subclavian vein and right brachiocephalic vein. From approximately 2 cm distal to the origin, and length of approximately 2 cm, there is heavily calcified and noncalcified plaque in the proximal to mid common carotid causing severe stenosis.. Left common carotid: Focal small calcified plaque at origin causing mild stenosis. Long, approximately 5 cm length of heavily calcified plaque throughout mid and distal common carotid, causing moderate stenosis at its proximal and, and mild stenosis throughout the rest. Right vertebral: Cervical portion shows no high-grade stenosis. Calcified plaque at intracranial segm ent. Left vertebral: Codominant. Severe stenosis at origin. Focal short segment moderate to severe stenosi s at C6 level. A second focus of moderate stenosis at C5 level. No stenosis in the rest of the cervical left vertebral. Right internal carotid: Previously on 01/07/2019, there was heavily calcified plaque at origin and pro ximal 2 cm causing severe stenosis. There is now absence of that calcified plaque, and there is no longer significant stenosis there. No high-grade stenosis in the cervical right internal carotid, edgardo pite additional plaque in the subcranial segment. Heavily calcified plaque at right carotid siphon. Heavily calcified plaque remains at proximal right external carotid, causing high-grade stenosis. Left internal carotid: Previously demonstrated heavily calcified plaque causing severe stenosis has b een removed. Currently no significant stenosis. Mild plaque at supper cranial segment. Calcified left carotid siphon. IMPRESSION: 1) multifocal severe atheromatous plaque involving multiple major arteries. 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 3) severe stenosis at left axillary artery. 4) severe stenosis at origin and proximal right common carotid artery. 5) severe stenosis at origin of left vertebral artery. 6) moderate-severe stenosis at left mid vertebral artery at C6 level. 7) status post bilateral carotid endarterectomies, resulting in interval resolution of the previously demonstrated severe stenoses there.
[2020-02-08] MEDS ORDERED: Iopamidol-370 76% 500 ML 1 ML ONE (12:53)
== END 2020-02-08 08:34 | disposition home or self-care (01) ==
LOC: BICCT 08:33
PROVIDERS: ATTEND Internal Medicine Cardiovascular Disease
DX: I73.9 Peripheral vascular disease, unspecified (principal); I65.02 Occlusion and stenosis of left vertebral artery; I65.21 Occlusion and stenosis of right carotid artery; Z98.890 Other specified postprocedural states
CPT/HCPCS: 70498; Q9967

== ENCOUNTER 2021-10-01 23:50 | Inpatient (IN) | payer MEDICARE ==
[2021-10-02 01:51] VITALS: BMI 26.6
[2021-10-02] MEDS ORDERED: Ondansetron PF 4 MG/2 ML Vial IVP PRN (02:56)
[2021-10-02] MEDS ORDERED: Dextrose 5% in Water 1,000 ML IV PRN (02:56)
[2021-10-02] MEDS ORDERED: HumaLOG 300 UNITS/3 ML VIAL SC PRN ×2 (02:56)
[2021-10-02] MEDS ORDERED: Ondansetron ODT 4 MG TAB PO PRN (02:56)
[2021-10-02] MEDS ORDERED: Dextrose 50% Abboject 50 ML SYRINGE SLOW IVP PRN (02:56)
[2021-10-02] MEDS ORDERED: Acetaminophen 325 MG TAB PO PRN (02:56)
[2021-10-02] MEDS ORDERED: Acetaminophen 650 MG Suppository PR PRN (02:56)
[2021-10-02] MEDS ORDERED: Sodium Chloride 0.9% 1,000 ML IV SCH (05:15)
[2021-10-02 06:44] LABS: #Basophils 0.1 thou/uL (0.0-0.2); #Eosinphils 0.1 thou/uL (0.0-0.7); #Lymphocytes 1.6 thou/uL (1.20-3.40); #Monocytes 1.3 thou/uL (0.11-0.59); %Basophils 1.1 % (0.0-1.0); %Lymphocytes 13.4 % (21.0-51.0); %Monocytes 10.8 % (0.0-10.0); %Neutrophils 73.6 % (42.0-75.0); Hemoglobin 13.7 g/dL (14.0-18.0); Mean Corpuscular HGB CONC 32.7 g/dL (32.0-36.0); Mean Corpuscular Hemoglobin 31.5 pg (27.0-31.0); Mean Corpuscular Volume 96.4 fL (78.0-98.0); Platelet Count 222 thou/uL (130-400); RBC Distribution Width 13.8 % (11.5-14.5); Red Blood Cell (RBC) Count 4.33 mill/uL (4.70-6.10); White Blood Cell (WBC) Count 12.2 thou/uL (4.8-10.8)
[2021-10-02 07:06] LABS: Anion Gap 13 mmol/L (10-20); BUN (Urea Nitrogen) 38 mg/dL (8.4-25.7); Calc. Creatinine Clearance 38 mL/min (70-130); Calcium 8.2 mg/dL (7.8-10.44); Carbon Dioxide 17 mmol/L (23-31); Chloride 108 mmol/L (98-107); Glucose 78 mg/dL (83-110); Sodium 133 mmol/L (136-145)
[2021-10-02 07:24] LABS: Bacteria/HPF None Seen HPF (None Seen); Bilirubin Negative (Negative); Blood, Urine Negative (Negative); Clarity Clear (Clear); Glucose, Urine (Dipstick) Normal (Negative); Ketone, Urine Negative (Negative); Leukocyte Negative Leu/uL (Negative); Nitrite Negative (Negative); Protein, Urine (Dipstick) 200 mg/dL (Neg-Trace); RBC/HPF 0-3 HPF (0-3); Specific Gravity, Urine 1.021 (1.002-1.036); Squamous Epithelial None Seen HPF (0-3); Urobilinogen Normal mg/dL (Less than 2); WBC/HPF 0-3 HPF (0-3)
[2021-10-02 07:25] LABS: Urine Culture Reflex No No
[2021-10-02 07:39] LABS: Creatinine, Urine 35.61 mg/dL (63-166)
[2021-10-02] MEDS ORDERED: Sodium Bicarbonate 150 MEQ in Dextrose 5% in Water 1,000 ML IV SCH (08:00)
[2021-10-02] MEDS: Enoxaparin Sodium 30 MG/0.3 ML SYRINGE SC SCH (09:30)
[2021-10-02] MEDS: Amlodipine 10 MG TAB PO SCH (09:30)
[2021-10-02] MEDS: traMADol HCl 50 MG TAB PO PRN (16:15)
[2021-10-02] MEDS: Pregabalin 50 MG CAP PO SCH (21:14)
[2021-10-03] MEDS: Amlodipine 10 MG TAB PO SCH (07:39)
[2021-10-03] MEDS: Pregabalin 50 MG CAP PO SCH ×2 (07:39→20:38)
[2021-10-03] MEDS: Enoxaparin Sodium 30 MG/0.3 ML SYRINGE SC SCH (07:40)
[2021-10-03 09:51] LABS: Albumin 2.9 g/dL (3.4-4.8); Anion Gap 12 mmol/L (10-20); BUN (Urea Nitrogen) 24 mg/dL (8.4-25.7); BUN/Creatinine Ratio 17.02; Calc. Creatinine Clearance 48 mL/min (70-130); Calcium 8.7 mg/dL (7.8-10.44); Carbon Dioxide 24 mmol/L (23-31); Chloride 105 mmol/L (98-107); Glucose 101 mg/dL (83-110); Phosphorus 2.5 mg/dL (2.3-4.7); Potassium 5.3 mmol/L (3.5-5.1); Sodium 136 mmol/L (136-145)
[2021-10-03] MEDS ORDERED: Fentanyl 100 MCG/2 ML VIAL ONE (12:34)
[2021-10-03] MEDS ORDERED: Heparin 10,000 UNITS/ 10 ML VIAL ONE (12:34)
[2021-10-03 18:34] LABS: Anion Gap 3 mmol/L (10-20); BUN (Urea Nitrogen) 25 mg/dL (8.4-25.7); Calc. Creatinine Clearance 50 mL/min (70-130); Calcium 8.1 mg/dL (7.8-10.44); Carbon Dioxide 33 mmol/L (23-31); Chloride 103 mmol/L (98-107); Glucose 145 mg/dL (83-110); Potassium 5.2 mmol/L (3.5-5.1); Sodium 134 mmol/L (136-145)
[2021-10-03] MEDS: Sodium Chloride 0.9% 1,000 ML IV SCH (23:18)
[2021-10-04 05:29] LABS: Albumin 2.7 g/dL (3.4-4.8); Anion Gap 9 mmol/L (10-20); BUN (Urea Nitrogen) 31 mg/dL (8.4-25.7); BUN/Creatinine Ratio 20.81; Calc. Creatinine Clearance 46 mL/min (70-130); Calcium 8.5 mg/dL (7.8-10.44); Carbon Dioxide 30 mmol/L (23-31); Chloride 102 mmol/L (98-107); Glucose 107 mg/dL (83-110); Phosphorus 2.9 mg/dL (2.3-4.7); Potassium 5.5 mmol/L (3.5-5.1); Sodium 135 mmol/L (136-145)
[2021-10-04] MEDS: Amlodipine 10 MG TAB PO SCH (08:12)
[2021-10-04] MEDS: Pregabalin 50 MG CAP PO SCH ×2 (08:12→21:11)
[2021-10-04] MEDS: Enoxaparin Sodium 30 MG/0.3 ML SYRINGE SC SCH (08:13)
[2021-10-04 13:05] LABS: Anion Gap 16 mmol/L (10-20); BUN (Urea Nitrogen) 28 mg/dL (8.4-25.7); Calc. Creatinine Clearance 53 mL/min (70-130); Calcium 8.6 mg/dL (7.8-10.44); Carbon Dioxide 21 mmol/L (23-31); Chloride 102 mmol/L (98-107); Glucose 119 mg/dL (83-110); Potassium 4.9 mmol/L (3.5-5.1); Sodium 134 mmol/L (136-145)
[2021-10-04] MEDS: Sodium Chloride 0.9% 1,000 ML IV SCH (13:37)
[2021-10-04] MEDS: Sodium Bicarbonate Tab 325 MG TAB PO SCH ×2 (21:10→21:15)
[2021-10-04] MEDS ORDERED: FLU VACC QS2021-22(65YR UP)/PF 240 MCG/0.7 ML SYRINGE IM ONE (23:15)
[2021-10-05] MEDS: traMADol HCl 50 MG TAB PO PRN (02:16)
[2021-10-05 06:50] LABS: Albumin 2.6 g/dL (3.4-4.8); Anion Gap 8 mmol/L (10-20); BUN (Urea Nitrogen) 23 mg/dL (8.4-25.7); Calc. Creatinine Clearance 69 mL/min (70-130); Calcium 8.2 mg/dL (7.8-10.44); Carbon Dioxide 25 mmol/L (23-31); Chloride 108 mmol/L (98-107); Glucose 113 mg/dL (83-110); Hemoglobin 12.9 g/dL (14.0-18.0); Mean Corpuscular HGB CONC 32.3 g/dL (32.0-36.0); Mean Corpuscular Hemoglobin 31.9 pg (27.0-31.0); Mean Corpuscular Volume 98.9 fL (78.0-98.0); Mean Platelet Volume 7.9 fL (7.4-10.4); Platelet Count 209 thou/uL (130-400); RBC Distribution Width 13.5 % (11.5-14.5); Red Blood Cell (RBC) Count 4.04 mill/uL (4.70-6.10); Sodium 136 mmol/L (136-145); White Blood Cell (WBC) Count 10.9 thou/uL (4.8-10.8)
[2021-10-05] MEDS: Pregabalin 50 MG CAP PO SCH ×2 (09:47→20:04)
[2021-10-05] MEDS: Enoxaparin Sodium 30 MG/0.3 ML SYRINGE SC SCH (09:48)
[2021-10-05] MEDS: Sodium Bicarbonate Tab 325 MG TAB PO SCH ×3 (09:51→20:05)
[2021-10-05] MEDS: Amlodipine 10 MG TAB PO SCH (09:56)
[2021-10-05] MEDS ORDERED: Piperacillin/Tazobactam 3.375 GM in Sodium Chloride 0.9% 100 ML IVPB SCH ×2 (11:30→14:00)
[2021-10-05] MEDS: Piperacillin/Tazobactam 3.375 GM in Sodium Chloride 0.9% 100 ML IVPB SCH (21:58)
[2021-10-06] MEDS: traMADol HCl 50 MG TAB PO PRN (04:56)
[2021-10-06] MEDS: Piperacillin/Tazobactam 3.375 GM in Sodium Chloride 0.9% 100 ML IVPB SCH ×3 (05:31→21:17)
[2021-10-06 06:54] LABS: Albumin 2.5 g/dL (3.4-4.8); Anion Gap 10 mmol/L (10-20); BUN (Urea Nitrogen) 22 mg/dL (8.4-25.7); BUN/Creatinine Ratio 23.16; Calc. Creatinine Clearance 73 mL/min (70-130); Calcium 8.4 mg/dL (7.8-10.44); Carbon Dioxide 23 mmol/L (23-31); Chloride 106 mmol/L (98-107); Glucose 141 mg/dL (83-110); Phosphorus 2.8 mg/dL (2.3-4.7); Potassium 5.1 mmol/L (3.5-5.1); Sodium 134 mmol/L (136-145)
[2021-10-06] MEDS: Sodium Bicarbonate Tab 325 MG TAB PO SCH ×3 (08:41→20:55)
[2021-10-06] MEDS: Amlodipine 10 MG TAB PO SCH (08:42)
[2021-10-06] MEDS: Pregabalin 50 MG CAP PO SCH ×2 (08:42→20:55)
[2021-10-06] MEDS: Enoxaparin Sodium 30 MG/0.3 ML SYRINGE SC SCH (08:44)
[2021-10-07] MEDS: Piperacillin/Tazobactam 3.375 GM in Sodium Chloride 0.9% 100 ML IVPB SCH (05:01)
[2021-10-07] MEDS: Enoxaparin Sodium 30 MG/0.3 ML SYRINGE SC SCH ×2 (08:35→08:37)
[2021-10-07] MEDS: Sodium Bicarbonate Tab 325 MG TAB PO SCH (08:35)
[2021-10-07] MEDS: Amlodipine 10 MG TAB PO SCH (08:35)
[2021-10-07] MEDS: Pregabalin 50 MG CAP PO SCH (08:35)
[2021-10-07 08:42] VITALS: BP 151/65; TEMP 98.1
== END 2021-10-07 13:20 | disposition home health service (06) | DRG 300 ==
LOC: 2NO 23:50 → T4-A 10-05 16:52
PROVIDERS: ADMIT Internal Medicine; ATTEND Internal Medicine
PROC: B41D1ZZ Fluoroscopy of Aorta and Bilateral Lower Extremity Arteries using Low Osmolar Contrast (ICD-10-PCS; principal; 2021-10-03)
DX: E11.51 Type 2 diabetes mellitus with diabetic peripheral angiopathy without gangrene (principal); N17.9 Acute kidney failure, unspecified; E87.1 Hypo-osmolality and hyponatremia; L03.116 Cellulitis of left lower limb; E87.2 Acidosis; E87.3 Alkalosis; E78.5 Hyperlipidemia, unspecified; E11.42 Type 2 diabetes mellitus with diabetic polyneuropathy; Z96.653 Presence of artificial knee joint, bilateral; E11.22 Type 2 diabetes mellitus with diabetic chronic kidney disease; E11.621 Type 2 diabetes mellitus with foot ulcer; L97.529 Non-pressure chronic ulcer of other part of left foot with unspecified severity; E87.5 Hyperkalemia; E11.628 Type 2 diabetes mellitus with other skin complications; K21.9 Gastro-esophageal reflux disease without esophagitis; N18.30 Chronic kidney disease, stage 3 unspecified; T46.4X5A Adverse effect of angiotensin-converting-enzyme inhibitors, initial encounter; T36.8X5A Adverse effect of other systemic antibiotics, initial encounter; E86.9 Volume depletion, unspecified; I12.9 Hypertensive chronic kidney disease with stage 1 through stage 4 chronic kidney disease, or unspecified chronic kidney disease; T42.3X5A Adverse effect of barbiturates, initial encounter; Z88.8 Allergy status to other drugs, medicaments and biological substances; Z28.21 Immunization not carried out because of patient refusal; Z79.899 Other long term (current) drug therapy; Z79.84 Long term (current) use of oral hypoglycemic drugs; Z79.82 Long term (current) use of aspirin; Z98.42 Cataract extraction status, left eye; Z98.41 Cataract extraction status, right eye; Z98.890 Other specified postprocedural states; Z87.891 Personal history of nicotine dependence; Z89.022 Acquired absence of left finger(s)
CPT/HCPCS: 36245; 36415; 36416; 75716; 80048; 80069; 81001; 82570; 84156; 84300; 84540; 85025; 85027; 86140; 93923; J1644; J1650; J2543; J3010; J3490; J7050; J7070

== ENCOUNTER 2021-10-29 16:15 | Inpatient (IN) | payer MEDICARE ==
[2021-10-29 12:47] VITALS: BMI 25.8
[2021-11-03] MEDS ORDERED: Fentanyl 100 MCG/2 ML VIAL ONE ×2 (06:51→07:24)
[2021-11-03] MEDS ORDERED: ceFAZolin 2 GM/Dextrose 50 ML IVPB ONE (07:17)
[2021-11-03] MEDS ORDERED: Midazolam HCl 2 mg/2 ml Vial ONE (07:24)
[2021-11-03] MEDS ORDERED: Dexamethasone 4 mg/ml Vial ONE (07:25)
[2021-11-03] MEDS ORDERED: PROPOFOL 200 MG/20 ML VIAL ONE (07:53)
[2021-11-03] MEDS ORDERED: Lidocaine 1% PF 5 ML VIAL ONE (07:53)
[2021-11-03] MEDS ORDERED: Rocuronium Bromide 10 MG/ML (10ML VIAL) ONE (07:53)
[2021-11-03] MEDS ORDERED: Bupivacaine HCl 0.5%/Epinephrine 1:200,000/PF 30 ml Vial ONE (07:53)
[2021-11-03] MEDS ORDERED: Ondansetron PF 4 MG/2 ML Vial ONE (07:53)
[2021-11-03] MEDS ORDERED: Dexamethasone 20 MG/5 ML VIAL ONE (07:53)
[2021-11-03] MEDS ORDERED: Promethazine HCl 25 MG/ML VIAL IM PRN (09:07)
[2021-11-03] MEDS ORDERED: HYDROcodone/Acetaminophen 7.5/325 mg Tablet PO PRN (09:07)
[2021-11-03] MEDS ORDERED: Ondansetron PF 4 MG/2 ML Vial IVP PRN (09:07)
[2021-11-03] MEDS ORDERED: Bisacodyl 5 MG TAB PO PRN (09:07)
[2021-11-03] MEDS ORDERED: Fentanyl 100 MCG/2 ML VIAL SLOW IVP PRN ×2 (09:07)
[2021-11-03] MEDS ORDERED: Bisacodyl 10 MG SUPP PR PRN (09:07)
[2021-11-03] MEDS ORDERED: Dextrose 50% Abboject 50 ML SYRINGE SLOW IVP PRN (09:07)
[2021-11-03] MEDS ORDERED: Ondansetron HCl/PF 4 MG/2 ML Vial IVP PRN (09:07)
[2021-11-03] MEDS ORDERED: Dextrose 5% in Water 1,000 ML IV PRN (09:07)
[2021-11-03] MEDS ORDERED: Promethazine HCl 25 MG/ML VIAL IVPB PRN (09:07)
[2021-11-03] MEDS ORDERED: Glimepiride 1 MG TAB PO SCH (09:07)
[2021-11-03] MEDS ORDERED: PHENYLEPHRINE-NS 100 MCG/ML 10 ML SYRINGE ONE (09:16)
[2021-11-03] MEDS: Polyethylene Glycol 3350 17 GM Packet PO SCH (13:01)
[2021-11-03] MEDS: Pregabalin 25 MG CAP PO SCH ×2 (13:02→21:57)
[2021-11-03] MEDS: Insulin Regular 300 UNITS/3 ML VIAL SC PRN ×2 (13:02→21:57)
[2021-11-03] MEDS: Aspirin 81 mg Enteric Coated Tablet PO SCH (13:02)
[2021-11-03] MEDS: Famotidine 20 MG TAB PO SCH ×2 (13:02→21:56)
[2021-11-03] MEDS: Lisinopril 5 MG TAB PO SCH ×2 (13:03→21:57)
[2021-11-03] MEDS: Lactated Ringer's 1,000 ML IV SCH (13:03)
[2021-11-03] MEDS: Metoprolol Tartrate 25 MG TAB PO SCH ×2 (13:04→21:56)
[2021-11-03] MEDS: Enoxaparin Sodium 40 MG/0.4 ML SYRINGE SC SCH (21:56)
[2021-11-04] MEDS: Lactated Ringer's 1,000 ML IV SCH (07:50)
[2021-11-04] MEDS: Pregabalin 25 MG CAP PO SCH ×2 (08:21→21:14)
[2021-11-04] MEDS: Glimepiride 1 MG TAB PO SCH (08:21)
[2021-11-04] MEDS: Polyethylene Glycol 3350 17 GM Packet PO SCH (08:21)
[2021-11-04] MEDS: Famotidine 20 MG TAB PO SCH ×2 (08:21→21:14)
[2021-11-04] MEDS: cefTRIAXone\\ROCEPHIN 1 GM in Sodium Chloride 0.9% 100 ML IVPB SCH (08:21)
[2021-11-04] MEDS: Metoprolol Tartrate 25 MG TAB PO SCH ×2 (08:21→21:14)
[2021-11-04] MEDS: Lisinopril 5 MG TAB PO SCH ×2 (08:22→21:15)
[2021-11-04] MEDS: Aspirin 81 mg Enteric Coated Tablet PO SCH (08:22)
[2021-11-04] MEDS: Amlodipine 5 MG TAB PO SCH (08:22)
[2021-11-04] MEDS: metFORMIN 500 MG TAB PO SCH ×2 (08:22→17:48)
[2021-11-04] MEDS: Enoxaparin Sodium 40 MG/0.4 ML SYRINGE SC SCH (21:15)
[2021-11-05] MEDS: Aspirin 81 mg Enteric Coated Tablet PO SCH (07:35)
[2021-11-05] MEDS: Pregabalin 25 MG CAP PO SCH ×2 (07:35→20:47)
[2021-11-05] MEDS: Lisinopril 5 MG TAB PO SCH ×2 (07:36→20:48)
[2021-11-05] MEDS: Famotidine 20 MG TAB PO SCH ×2 (07:36→20:48)
[2021-11-05] MEDS: metFORMIN 500 MG TAB PO SCH ×2 (07:36→16:43)
[2021-11-05] MEDS: Metoprolol Tartrate 25 MG TAB PO SCH ×2 (07:36→20:48)
[2021-11-05] MEDS: Amlodipine 5 MG TAB PO SCH (07:37)
[2021-11-05] MEDS: Polyethylene Glycol 3350 17 GM Packet PO SCH (07:37)
[2021-11-05] MEDS: cefTRIAXone\\ROCEPHIN 1 GM in Sodium Chloride 0.9% 100 ML IVPB SCH (07:47)
[2021-11-05] MEDS: Glimepiride 1 MG TAB PO SCH (12:42)
[2021-11-05] MEDS: Acetaminophen 325 MG TAB PO PRN (14:00)
[2021-11-05] MEDS: HYDROcodone/Acetaminophen 7.5/325 mg Tablet PO PRN ×2 (16:43→20:52)
[2021-11-05] MEDS: Enoxaparin Sodium 40 MG/0.4 ML SYRINGE SC SCH (20:48)
[2021-11-06] MEDS: HYDROcodone/Acetaminophen 7.5/325 mg Tablet PO PRN ×2 (01:51→12:35)
[2021-11-06] MEDS: Acetaminophen 325 MG TAB PO PRN ×2 (06:26→23:15)
[2021-11-06] MEDS: metFORMIN 500 MG TAB PO SCH ×2 (08:18→16:46)
[2021-11-06] MEDS: Glimepiride 1 MG TAB PO SCH (08:18)
[2021-11-06] MEDS: Polyethylene Glycol 3350 17 GM Packet PO SCH (08:18)
[2021-11-06] MEDS: Lisinopril 10 MG TAB PO SCH ×2 (08:18→20:28)
[2021-11-06] MEDS: Famotidine 20 MG TAB PO SCH ×2 (08:18→20:27)
[2021-11-06] MEDS: Amlodipine 5 MG TAB PO SCH (08:19)
[2021-11-06] MEDS: Metoprolol Tartrate 25 MG TAB PO SCH ×2 (08:19→20:28)
[2021-11-06] MEDS: Aspirin 81 mg Enteric Coated Tablet PO SCH (08:19)
[2021-11-06] MEDS: Pregabalin 25 MG CAP PO SCH ×2 (08:19→20:27)
[2021-11-06] MEDS: cefTRIAXone\\ROCEPHIN 1 GM in Sodium Chloride 0.9% 100 ML IVPB SCH (08:20)
[2021-11-06] MEDS: Enoxaparin Sodium 40 MG/0.4 ML SYRINGE SC SCH (20:26)
[2021-11-07] MEDS: cefTRIAXone\\ROCEPHIN 1 GM in Sodium Chloride 0.9% 100 ML IVPB SCH (09:32)
[2021-11-07] MEDS: Lactated Ringer's 1,000 ML IV SCH (09:32)
[2021-11-07] MEDS: Metoprolol Tartrate 25 MG TAB PO SCH ×2 (09:33→21:56)
[2021-11-07] MEDS: Pregabalin 25 MG CAP PO SCH ×2 (09:33→21:56)
[2021-11-07] MEDS: Lisinopril 10 MG TAB PO SCH (09:34)
[2021-11-07] MEDS: Famotidine 20 MG TAB PO SCH ×2 (09:34→21:56)
[2021-11-07] MEDS: Glimepiride 1 MG TAB PO SCH (09:34)
[2021-11-07] MEDS: Aspirin 81 mg Enteric Coated Tablet PO SCH (09:35)
[2021-11-07] MEDS: Amlodipine 5 MG TAB PO SCH (09:35)
[2021-11-07] MEDS: metFORMIN 500 MG TAB PO SCH ×2 (09:35→17:17)
[2021-11-07] MEDS ORDERED: Ziprasidone 20 MG VIAL IM SCH ×2 (12:15→19:15)
[2021-11-07] MEDS ORDERED: Dexamethasone 20 MG/5 ML VIAL ONE (13:57)
[2021-11-07] MEDS ORDERED: Ondansetron PF 4 MG/2 ML Vial ONE (13:57)
[2021-11-07] MEDS ORDERED: PHENYLEPHRINE-NS 100 MCG/ML 10 ML SYRINGE ONE (13:57)
[2021-11-07] MEDS ORDERED: Rocuronium Bromide 10 MG/ML (10ML VIAL) ONE (13:57)
[2021-11-07] MEDS ORDERED: Lidocaine 1% PF 5 ML VIAL ONE (13:57)
[2021-11-07] MEDS ORDERED: PROPOFOL 200 MG/20 ML VIAL ONE (13:57)
[2021-11-07] MEDS ORDERED: Fentanyl 100 MCG/2 ML VIAL ONE (14:31)
[2021-11-07] MEDS ORDERED: Promethazine HCl 25 MG/ML VIAL IVPB PRN (16:00)
[2021-11-07] MEDS ORDERED: Promethazine HCl 25 MG/ML VIAL IM PRN (16:00)
[2021-11-07] MEDS ORDERED: Ondansetron HCl/PF 4 MG/2 ML Vial IVP PRN (16:00)
[2021-11-07] MEDS ORDERED: traMADol HCl 50 MG TAB PO PRN (16:44)
[2021-11-07] MEDS: Polyethylene Glycol 3350 17 GM Packet PO SCH (17:14)
[2021-11-07] MEDS ORDERED: Sterile Water 10 ML VIAL FS SCH (19:15)
[2021-11-07] MEDS: Enoxaparin Sodium 40 MG/0.4 ML SYRINGE SC SCH (21:29)
[2021-11-08] MEDS: Lactated Ringer's 1,000 ML IV SCH (04:39)
[2021-11-08] MEDS: Glimepiride 1 MG TAB PO SCH (07:57)
[2021-11-08] MEDS: Famotidine 20 MG TAB PO SCH ×2 (07:57→20:26)
[2021-11-08] MEDS: metFORMIN 500 MG TAB PO SCH ×2 (07:57→16:47)
[2021-11-08] MEDS: Amlodipine 5 MG TAB PO SCH (07:58)
[2021-11-08] MEDS: Pregabalin 25 MG CAP PO SCH ×2 (08:01→20:26)
[2021-11-08] MEDS: Polyethylene Glycol 3350 17 GM Packet PO SCH (08:01)
[2021-11-08] MEDS: Metoprolol Tartrate 25 MG TAB PO SCH ×2 (08:01→20:26)
[2021-11-08] MEDS: Aspirin 81 mg Enteric Coated Tablet PO SCH (08:01)
[2021-11-08] MEDS: cefTRIAXone\\ROCEPHIN 1 GM in Sodium Chloride 0.9% 100 ML IVPB SCH (08:02)
[2021-11-08] MEDS: Acetaminophen 325 MG TAB PO PRN (16:48)
[2021-11-08] MEDS: Enoxaparin Sodium 40 MG/0.4 ML SYRINGE SC SCH ×2 (20:26→20:32)
[2021-11-09] MEDS: Lactated Ringer's 1,000 ML IV SCH ×2 (01:23→19:37)
[2021-11-09] MEDS: Acetaminophen 325 MG TAB PO PRN ×3 (01:42→21:16)
[2021-11-09] MEDS: cefTRIAXone\\ROCEPHIN 1 GM in Sodium Chloride 0.9% 100 ML IVPB SCH (09:07)
[2021-11-09] MEDS: Pregabalin 25 MG CAP PO SCH ×2 (09:08→21:17)
[2021-11-09] MEDS: Aspirin 81 mg Enteric Coated Tablet PO SCH (09:08)
[2021-11-09] MEDS: metFORMIN 500 MG TAB PO SCH ×2 (09:09→18:26)
[2021-11-09] MEDS: Glimepiride 1 MG TAB PO SCH (09:09)
[2021-11-09] MEDS: Famotidine 20 MG TAB PO SCH ×2 (09:09→21:17)
[2021-11-09] MEDS: Amlodipine 5 MG TAB PO SCH (09:09)
[2021-11-09] MEDS: Metoprolol Tartrate 25 MG TAB PO SCH ×2 (09:09→21:17)
[2021-11-09] MEDS: Polyethylene Glycol 3350 17 GM Packet PO SCH (09:12)
[2021-11-09] MEDS: Enoxaparin Sodium 40 MG/0.4 ML SYRINGE SC SCH (21:18)
[2021-11-10] MEDS: Acetaminophen 325 MG TAB PO PRN ×3 (01:34→20:03)
[2021-11-10] MEDS: cefTRIAXone\\ROCEPHIN 1 GM in Sodium Chloride 0.9% 100 ML IVPB SCH (08:08)
[2021-11-10] MEDS: Aspirin 81 mg Enteric Coated Tablet PO SCH (08:09)
[2021-11-10] MEDS: Pregabalin 25 MG CAP PO SCH ×2 (08:09→20:01)
[2021-11-10] MEDS: Amlodipine 5 MG TAB PO SCH (08:09)
[2021-11-10] MEDS: Famotidine 20 MG TAB PO SCH ×2 (08:09→20:03)
[2021-11-10] MEDS: metFORMIN 500 MG TAB PO SCH ×2 (08:09→17:44)
[2021-11-10] MEDS: Metoprolol Tartrate 25 MG TAB PO SCH ×2 (08:09→20:03)
[2021-11-10] MEDS: Polyethylene Glycol 3350 17 GM Packet PO SCH (08:10)
[2021-11-10] MEDS: Glimepiride 1 MG TAB PO SCH (08:10)
[2021-11-10] MEDS: Lactated Ringer's 1,000 ML IV SCH (11:06)
[2021-11-10] MEDS: Enoxaparin Sodium 40 MG/0.4 ML SYRINGE SC SCH (20:04)
[2021-11-11] MEDS: Pregabalin 25 MG CAP PO SCH ×2 (08:43→20:28)
[2021-11-11] MEDS: cefTRIAXone\\ROCEPHIN 1 GM in Sodium Chloride 0.9% 100 ML IVPB SCH (08:43)
[2021-11-11] MEDS: Amlodipine 5 MG TAB PO SCH (08:44)
[2021-11-11] MEDS: Famotidine 20 MG TAB PO SCH ×2 (08:44→20:27)
[2021-11-11] MEDS: Aspirin 81 mg Enteric Coated Tablet PO SCH (08:44)
[2021-11-11] MEDS: Metoprolol Tartrate 25 MG TAB PO SCH ×2 (08:44→20:28)
[2021-11-11] MEDS: metFORMIN 500 MG TAB PO SCH ×2 (08:44→16:28)
[2021-11-11] MEDS: Polyethylene Glycol 3350 17 GM Packet PO SCH (08:45)
[2021-11-11] MEDS: Glimepiride 1 MG TAB PO SCH (08:45)
[2021-11-11] MEDS: Lactated Ringer's 1,000 ML IV SCH (10:53)
[2021-11-11] MEDS: Enoxaparin Sodium 40 MG/0.4 ML SYRINGE SC SCH (20:19)
[2021-11-12] MEDS: Acetaminophen 325 MG TAB PO PRN ×2 (02:42→13:58)
[2021-11-12] MEDS: Lactated Ringer's 1,000 ML IV SCH (08:49)
[2021-11-12] MEDS: Famotidine 20 MG TAB PO SCH (08:51)
[2021-11-12] MEDS: metFORMIN 500 MG TAB PO SCH (08:51)
[2021-11-12] MEDS: Glimepiride 1 MG TAB PO SCH (08:52)
[2021-11-12] MEDS: Metoprolol Tartrate 25 MG TAB PO SCH (08:52)
[2021-11-12] MEDS: Aspirin 81 mg Enteric Coated Tablet PO SCH (08:52)
[2021-11-12] MEDS: Pregabalin 25 MG CAP PO SCH (08:52)
[2021-11-12] MEDS: Amlodipine 5 MG TAB PO SCH (08:52)
[2021-11-12] MEDS: cefTRIAXone\\ROCEPHIN 1 GM in Sodium Chloride 0.9% 100 ML IVPB SCH (08:53)
[2021-11-12] MEDS: Polyethylene Glycol 3350 17 GM Packet PO SCH (08:54)
[2021-11-12 12:06] VITALS: BP 127/73; TEMP 97.5
== END 2021-11-12 14:10 | DRG 241 ==
LOC: SURG A 11-03 05:47
PROVIDERS: ADMIT Thoracic Surgery (Cardiothoracic Vascular Surgery); ATTEND Thoracic Surgery (Cardiothoracic Vascular Surgery)
PROC: 0Y6J0Z3 Detachment at Left Lower Leg, Low, Open Approach (ICD-10-PCS; principal; 2021-11-03)
PROC: 0Y6D0Z3 Detachment at Left Upper Leg, Low, Open Approach (ICD-10-PCS; 2021-11-07)
DX: E11.52 Type 2 diabetes mellitus with diabetic peripheral angiopathy with gangrene (principal); I70.219 Atherosclerosis of native arteries of extremities with intermittent claudication, unspecified extremity; E11.621 Type 2 diabetes mellitus with foot ulcer; L97.529 Non-pressure chronic ulcer of other part of left foot with unspecified severity; Y83.8 Other surgical procedures as the cause of abnormal reaction of the patient, or of later complication, without mention of misadventure at the time of the procedure; T87.89 Other complications of amputation stump
CPT/HCPCS: 36416; 88307; 88311; 93005; 93010; J0690; J0696; J1100; J1650; J1815; J2250; J2405; J2704; J3010; J3486; J3490; J7120

== ENCOUNTER 2022-01-17 20:32 | Inpatient (IN) | payer MEDICARE ==
[~2022-01-17 20:32] MED LIST changes: -ISOVUE-370 76%-LOCM 1 ML ONE; +Iopamidol-370 76% 500 ML 1 ML ONE
[2022-01-17 21:02] LABS: #Basophils 0.1 thou/uL (0.0-0.2); #Eosinphils 0.5 thou/uL (0.0-0.7); #Lymphocytes 1.5 thou/uL (1.20-3.40); #Monocytes 1.2 thou/uL (0.11-0.59); #Neutrophils 10.7 thou/uL (1.40-6.50); %Basophils 0.7 % (0.0-1.0); %Eosinophils 3.7 % (0.0-10.0); %Lymphocytes 10.4 % (21.0-51.0); %Monocytes 8.6 % (0.0-10.0); %Neutrophils 76.7 % (42.0-75.0); Hemoglobin 13.3 g/dL (14.0-18.0); Mean Corpuscular Hemoglobin 33.2 pg (27.0-31.0); Mean Platelet Volume 8.3 fL (7.4-10.4); Platelet Count 289 thou/uL (130-400); RBC Distribution Width 13.8 % (11.5-14.5); White Blood Cell (WBC) Count 13.9 thou/uL (4.8-10.8)
[2022-01-17 21:10] LABS: Prothrombin Time 13.7 sec (12.0-14.7)
[2022-01-17 21:11] LABS: PTT 28.5 sec (22.9-36.1)
[2022-01-17 21:25] LABS: ALT (SGPT) 13 U/L (8-55); AST (SGOT) 20 U/L (5-34); Albumin 3.3 g/dL (3.4-4.8); Alkaline Phosphatase 117 U/L (40-110); Anion Gap 14 mmol/L (10-20); BUN (Urea Nitrogen) 28 mg/dL (8.4-25.7); Bilirubin, Total 0.3 mg/dL (0.2-1.2); CK (CPK) 50 U/L (30-200); Calc. Creatinine Clearance 0 mL/min (70-130); Carbon Dioxide 24 mmol/L (23-31); Chloride 106 mmol/L (98-107); Globulin 3.2 g/dL (2.4-3.5); Glucose 96 mg/dL (83-110); Potassium 5.1 mmol/L (3.5-5.1); Protein, Total 6.5 g/dL (5.8-8.1); Sodium 139 mmol/L (136-145)
[2022-01-17] MEDS ORDERED: Aspirin 325 MG TAB ONE (22:11)
[2022-01-17] MEDS ORDERED: Ondansetron PF 4 MG/2 ML Vial IVP PRN (22:30)
[2022-01-17] MEDS ORDERED: Acetaminophen 325 MG TAB PO PRN ×2 (22:30→23:17)
[2022-01-17] MEDS ORDERED: Ondansetron ODT 4 MG TAB SL PRN (22:30)
[2022-01-17] MEDS ORDERED: Senokot S 8.6-50 MG TAB PO PRN (23:17)
[2022-01-17] MEDS ORDERED: Dextrose 50% Abboject 50 ML SYRINGE SLOW IVP PRN (23:39)
[2022-01-17] MEDS ORDERED: HumaLOG 300 UNITS/3 ML VIAL SC PRN (23:39)
[2022-01-17] MEDS ORDERED: Dextrose 5% in Water 1,000 ML IV PRN (23:39)
[2022-01-17 23:54] VITALS: BMI 24.3
[2022-01-18] MEDS ORDERED: Sodium Chloride 0.9% 1,000 ML IV SCH (00:45)
[2022-01-18] MEDS ORDERED: Lorazepam 2 MG/ML VIAL SLOW IVP PRN (07:00)
[2022-01-18] MEDS: Famotidine 20 MG TAB PO SCH ×2 (08:35→22:10)
[2022-01-18] MEDS: Enoxaparin Sodium 40 MG/0.4 ML SYRINGE SC SCH (08:35)
[2022-01-18] MEDS ORDERED: Enoxaparin Sodium 80 MG/0.8 ML SYRINGE SC SCH (09:00)
[2022-01-18] MEDS ORDERED: Clopidogrel Bisulfate 75 MG TAB PO SCH (09:00)
[2022-01-18] MEDS ORDERED: Aspirin 325 mg Enteric Coated Tablet PO SCH (09:00)
[2022-01-18] MEDS ORDERED: Enoxaparin Sodium 40 MG/0.4 ML SYRINGE SC SCH (09:00)
[2022-01-18] MEDS ORDERED: Lorazepam 2 MG/ML VIAL SLOW IVP SCH ×2 (11:00→11:15)
[2022-01-18 14:27] LABS: #Basophils 0.1 thou/uL (0.0-0.2); #Eosinphils 0.4 thou/uL (0.0-0.7); #Lymphocytes 1.3 thou/uL (1.20-3.40); #Monocytes 0.8 thou/uL (0.11-0.59); %Basophils 0.9 % (0.0-1.0); %Eosinophils 4.7 % (0.0-10.0); %Lymphocytes 14.8 % (21.0-51.0); %Monocytes 9.7 % (0.0-10.0); %Neutrophils 69.9 % (42.0-75.0); Mean Corpuscular HGB CONC 32.4 g/dL (32.0-36.0); Mean Corpuscular Hemoglobin 32.4 pg (27.0-31.0); Mean Corpuscular Volume 99.9 fL (78.0-98.0); Mean Platelet Volume 8.2 fL (7.4-10.4); Platelet Count 251 thou/uL (130-400); RBC Distribution Width 13.9 % (11.5-14.5); Red Blood Cell (RBC) Count 3.71 mill/uL (4.70-6.10); White Blood Cell (WBC) Count 8.5 thou/uL (4.8-10.8)
[2022-01-18 14:51] LABS: ALT (SGPT) 12 U/L (8-55); AST (SGOT) 13 U/L (5-34); Albumin 3.1 g/dL (3.4-4.8); Alkaline Phosphatase 110 U/L (40-110); Anion Gap 9 mmol/L (10-20); BUN (Urea Nitrogen) 24 mg/dL (8.4-25.7); Bilirubin, Total 0.3 mg/dL (0.2-1.2); Calc. Creatinine Clearance 56 mL/min (70-130); Calcium 9.1 mg/dL (7.8-10.44); Carbon Dioxide 29 mmol/L (23-31); Cardiac Risk 3.3 (Less than 4.5); Chloride 104 mmol/L (98-107); Cholesterol 124 mg/dl (< 200 Desired); Globulin 2.7 g/dL (2.4-3.5); Glucose 153 mg/dL (83-110); HDL Cholesterol 38 mg/dL (>60 Neg Risk); LDL Cholesterol, Calculated 53 mg/dL; Potassium 4.8 mmol/L (3.5-5.1); Protein, Total 5.8 g/dL (5.8-8.1); Sodium 137 mmol/L (136-145); Triglycerides 164 mg/dL (Less than 150)
[2022-01-18 16:05] LABS: SARS-CoV-2 PCR by NAA Not Detected (NotDetected)
[2022-01-18] MEDS: metFORMIN 500 MG TAB PO SCH (17:27)
[2022-01-18] MEDS ORDERED: Heparin 5,000 UNITS/ML VIAL SC SCH (21:00)
[2022-01-18] MEDS ORDERED: Pregabalin 25 MG CAP PO SCH (21:00)
[2022-01-18] MEDS: Amlodipine 5 MG TAB PO SCH (22:10)
[2022-01-18] MEDS: Metoprolol Tartrate 25 MG TAB PO SCH (22:10)
[2022-01-18] MEDS: Pregabalin 50 MG CAP PO SCH (22:11)
[2022-01-19 05:04] LABS: #Eosinphils 0.5 thou/uL (0.0-0.7); #Lymphocytes 1.2 thou/uL (1.20-3.40); #Monocytes 1.2 thou/uL (0.11-0.59); #Neutrophils 8.2 thou/uL (1.40-6.50); %Basophils 0.4 % (0.0-1.0); %Eosinophils 4.2 % (0.0-10.0); %Lymphocytes 10.9 % (21.0-51.0); %Monocytes 10.5 % (0.0-10.0); Hemoglobin 12.1 g/dL (14.0-18.0); Mean Corpuscular HGB CONC 31.5 g/dL (32.0-36.0); Mean Corpuscular Hemoglobin 31.7 pg (27.0-31.0); Mean Platelet Volume 8.5 fL (7.4-10.4); Platelet Count 231 thou/uL (130-400); RBC Distribution Width 13.9 % (11.5-14.5); Red Blood Cell (RBC) Count 3.82 mill/uL (4.70-6.10); White Blood Cell (WBC) Count 11.1 thou/uL (4.8-10.8)
[2022-01-19 05:21] LABS: Anion Gap 12 mmol/L (10-20); BUN (Urea Nitrogen) 24 mg/dL (8.4-25.7); Calc. Creatinine Clearance 60 mL/min (70-130); Calcium 8.9 mg/dL (7.8-10.44); Carbon Dioxide 24 mmol/L (23-31); Chloride 106 mmol/L (98-107); Glucose 111 mg/dL (83-110); Potassium 4.9 mmol/L (3.5-5.1); Sodium 137 mmol/L (136-145)
[2022-01-19] MEDS ORDERED: Non-Formulary Item 1 EACH (Ferrous Sulfate [Iron] 325 MG Tablet) PO SCH (09:00)
[2022-01-19] MEDS ORDERED: ASCORBIC ACID 250 MG PO SCH (09:00)
[2022-01-19] MEDS ORDERED: Glimepiride 1 MG TAB PO SCH (09:00)
[2022-01-19] MEDS ORDERED: Aspirin 325 mg Enteric Coated Tablet PO SCH (09:00)
[2022-01-19] MEDS ORDERED: Non-Formulary Item 1 EACH (Omeprazole Magnesium [Omeprazole Magnesium] 20 MG Capsule.Dr) PO SCH (09:00)
[2022-01-19] MEDS: Glimepiride 1 MG TAB PO SCH (09:28)
[2022-01-19] MEDS: Lisinopril/Hydrochlorothiazide 20 mg/12.5 mg Tablet PO SCH (09:28)
[2022-01-19] MEDS: Pregabalin 50 MG CAP PO SCH ×3 (09:29→21:42)
[2022-01-19] MEDS: metFORMIN 500 MG TAB PO SCH ×2 (09:29→16:57)
[2022-01-19] MEDS: Aspirin 81 mg Enteric Coated Tablet PO SCH (09:29)
[2022-01-19] MEDS: Ezetimibe 10 MG TAB PO SCH (09:30)
[2022-01-19] MEDS: Ascorbic Acid 500 mg Chewable Tablet PO SCH (09:30)
[2022-01-19] MEDS: Metoprolol Tartrate 25 MG TAB PO SCH ×3 (09:31→21:42)
[2022-01-19] MEDS: Famotidine 20 MG TAB PO SCH ×3 (09:32→21:41)
[2022-01-19] MEDS: Enoxaparin Sodium 40 MG/0.4 ML SYRINGE SC SCH (09:32)
[2022-01-19] MEDS: Amlodipine 5 MG TAB PO SCH ×3 (09:32→21:40)
[2022-01-19] MEDS: Ferrous Sulfate 325 MG TAB PO SCH (09:32)
[2022-01-19] MEDS: Clopidogrel Bisulfate 75 MG TAB PO SCH (09:32)
[2022-01-20] MEDS: Aspirin 81 mg Enteric Coated Tablet PO SCH (09:21)
[2022-01-20] MEDS: Clopidogrel Bisulfate 75 MG TAB PO SCH (09:21)
[2022-01-20] MEDS: Enoxaparin Sodium 40 MG/0.4 ML SYRINGE SC SCH (09:21)
[2022-01-20] MEDS: Amlodipine 5 MG TAB PO SCH (09:24)
[2022-01-20] MEDS: Ascorbic Acid 500 mg Chewable Tablet PO SCH (09:24)
[2022-01-20] MEDS: Ezetimibe 10 MG TAB PO SCH (09:25)
[2022-01-20] MEDS: metFORMIN 500 MG TAB PO SCH ×2 (09:25→17:06)
[2022-01-20] MEDS: Lisinopril/Hydrochlorothiazide 20 mg/12.5 mg Tablet PO SCH (09:29)
[2022-01-20] MEDS: Ferrous Sulfate 325 MG TAB PO SCH (09:29)
[2022-01-20] MEDS: Glimepiride 1 MG TAB PO SCH (09:29)
[2022-01-20] MEDS: Metoprolol Tartrate 25 MG TAB PO SCH ×2 (09:29→21:16)
[2022-01-20] MEDS: Famotidine 20 MG TAB PO SCH ×2 (09:29→21:16)
[2022-01-20] MEDS: Pregabalin 50 MG CAP PO SCH ×2 (09:30→21:21)
[2022-01-20] MEDS ORDERED: Nicotine 21 MG PATCH TD SCH (14:45)
[2022-01-20] MEDS ORDERED: METOPROLOL 25 MG TAB PO SCH (21:00)
[2022-01-20] MEDS: AMLODIPINE 5 MG TAB PO SCH (21:11)
[2022-01-20] MEDS: METFORMIN 500 MG TAB PO SCH (21:13)
[2022-01-21] MEDS ORDERED: Ezetimibe 10 MG TAB PO SCH (09:00)
[2022-01-21] MEDS ORDERED: LISINOPRIL PO SCH (09:00)
[2022-01-21] MEDS ORDERED: HCTZ PO SCH (09:00)
[2022-01-21] MEDS ORDERED: EZETIMIBE 10 MG TAB PO SCH (09:00)
[2022-01-21] MEDS ORDERED: GLIMEPIRIDE 1 MG TAB PO SCH (09:00)
[2022-01-21] MEDS: Ascorbic Acid 500 mg Chewable Tablet PO SCH (10:14)
[2022-01-21] MEDS: Enoxaparin Sodium 40 MG/0.4 ML SYRINGE SC SCH (10:15)
[2022-01-21] MEDS: Ferrous Sulfate 325 MG TAB PO SCH (10:15)
[2022-01-21] MEDS: Famotidine 20 MG TAB PO SCH (10:15)
[2022-01-21] MEDS: Clopidogrel Bisulfate 75 MG TAB PO SCH (10:15)
[2022-01-21] MEDS: Aspirin 81 mg Enteric Coated Tablet PO SCH (10:15)
[2022-01-21] MEDS: METFORMIN 500 MG TAB PO SCH (10:17)
[2022-01-21] MEDS: Metoprolol Tartrate 25 MG TAB PO SCH (10:17)
[2022-01-21] MEDS: Pregabalin 50 MG CAP PO SCH (10:18)
[2022-01-21] MEDS: AMLODIPINE 5 MG TAB PO SCH (10:28)
[2022-01-21 13:46] VITALS: BP 143/54
[2022-01-21] MEDS ORDERED: Nicotine 21 MG PATCH TD SCH (15:00)
[2022-01-21 17:08] VITALS: TEMP 97.8
== END 2022-01-21 17:53 | disposition home health service (06) | DRG 65 ==
LOC: ERS 20:32 → 2NO 22:21 → OBSVTOIN 01-20 12:45
PROVIDERS: ADMIT Hospitalist; ATTEND Hospitalist
DX: I63.9 Cerebral infarction, unspecified (principal); Z20.822 Contact with and (suspected) exposure to COVID-19; R29.703 NIHSS score 3; I48.92 Unspecified atrial flutter; N17.9 Acute kidney failure, unspecified; I42.8 Other cardiomyopathies; G81.91 Hemiplegia, unspecified affecting right dominant side; E78.00 Pure hypercholesterolemia, unspecified; F17.210 Nicotine dependence, cigarettes, uncomplicated; I65.21 Occlusion and stenosis of right carotid artery; E11.22 Type 2 diabetes mellitus with diabetic chronic kidney disease; K21.9 Gastro-esophageal reflux disease without esophagitis; N18.30 Chronic kidney disease, stage 3 unspecified; I12.9 Hypertensive chronic kidney disease with stage 1 through stage 4 chronic kidney disease, or unspecified chronic kidney disease; E78.5 Hyperlipidemia, unspecified; E11.51 Type 2 diabetes mellitus with diabetic peripheral angiopathy without gangrene; E11.628 Type 2 diabetes mellitus with other skin complications; Z96.652 Presence of left artificial knee joint; F40.240 Claustrophobia; I70.298 Other atherosclerosis of native arteries of extremities, other extremity; M19.071 Primary osteoarthritis, right ankle and foot; Z28.21 Immunization not carried out because of patient refusal; Z86.73 Personal history of transient ischemic attack (TIA), and cerebral infarction without residual deficits; Z89.612 Acquired absence of left leg above knee; Z88.5 Allergy status to narcotic agent; Z88.8 Allergy status to other drugs, medicaments and biological substances; Z79.899 Other long term (current) drug therapy; Z79.84 Long term (current) use of oral hypoglycemic drugs; Z98.890 Other specified postprocedural states; Z85.820 Personal history of malignant melanoma of skin
CPT/HCPCS: 36415; 36416; 70450; 70496; 70498; 71045; 80048; 80053; 80061; 82550; 84443; 84484; 85025; 85610; 85730; 93005; 93306; 95712; 95819; 95957; 96372; 96374; G0378; J1650; J2060; J7050; Q9967; U0003; U0005

== ENCOUNTER 2022-01-28 09:31 | Inpatient (IN) | payer MEDICARE ==
[2022-01-28] MEDS ORDERED: Iopamidol 370 76% 100 ML VIAL ONE (09:44)
[2022-01-28 10:06] LABS: #Basophils 0.1 thou/uL (0.0-0.2); #Eosinphils 0.6 thou/uL (0.0-0.7); #Lymphocytes 1.2 thou/uL (1.20-3.40); #Neutrophils 7.3 thou/uL (1.40-6.50); %Basophils 0.7 % (0.0-1.0); %Eosinophils 6.2 % (0.0-10.0); %Lymphocytes 11.4 % (21.0-51.0); %Monocytes 10.1 % (0.0-10.0); %Neutrophils 71.7 % (42.0-75.0); Hemoglobin 10.4 g/dL (14.0-18.0); Mean Corpuscular HGB CONC 32.7 g/dL (32.0-36.0); Mean Corpuscular Hemoglobin 32.3 pg (27.0-31.0); Mean Corpuscular Volume 98.7 fL (78.0-98.0); Mean Platelet Volume 8.2 fL (7.4-10.4); Platelet Count 247 thou/uL (130-400); RBC Distribution Width 13.5 % (11.5-14.5); Red Blood Cell (RBC) Count 3.22 mill/uL (4.70-6.10); White Blood Cell (WBC) Count 10.1 thou/uL (4.8-10.8)
[2022-01-28 10:17] LABS: INR-International Normal Ratio 1.2; Prothrombin Time 15.2 sec (12.0-14.7)
[2022-01-28 10:18] LABS: PTT 32.4 sec (22.9-36.1)
[2022-01-28 10:27] LABS: ALT (SGPT) 11 U/L (8-55); AST (SGOT) 11 U/L (5-34); Albumin 2.8 g/dL (3.4-4.8); Alkaline Phosphatase 89 U/L (40-110); Anion Gap 11 mmol/L (10-20); BUN (Urea Nitrogen) 27 mg/dL (8.4-25.7); Bilirubin, Total 0.2 mg/dL (0.2-1.2); Calc. Creatinine Clearance 0 mL/min (70-130); Calcium 8.6 mg/dL (7.8-10.44); Carbon Dioxide 21 mmol/L (23-31); Chloride 106 mmol/L (98-107); Globulin 2.5 g/dL (2.4-3.5); Glucose 114 mg/dL (83-110); Potassium 4.3 mmol/L (3.5-5.1); Protein, Total 5.3 g/dL (5.8-8.1); Sodium 134 mmol/L (136-145)
[2022-01-28] MEDS ORDERED: ALTEPLASE (TPA) 50 MG/50 ML VIAL ONE (10:33)
[2022-01-28] MEDS ORDERED: Tenecteplase 50 MG - STEMI KIT ONE (10:33)
[2022-01-28] MEDS ORDERED: Ondansetron PF 4 MG/2 ML Vial IVP PRN (12:39)
[2022-01-28] MEDS ORDERED: Acetaminophen 650 MG Suppository PR PRN (12:39)
[2022-01-28 12:53] LABS: SARS-CoV-2 NAA Rapid Test Not Detected (NotDetected)
[2022-01-28 12:56] VITALS: BMI 24.7
[2022-01-28] MEDS: Acetaminophen 325 MG TAB PO PRN ×2 (16:22→20:26)
[2022-01-28 19:30] LABS: Bacteria/HPF None Seen HPF (None Seen); Bilirubin Negative (Negative); Blood, Urine Trace (Negative); Clarity Clear (Clear); Glucose, Urine (Dipstick) Normal (Negative); Ketone, Urine Negative (Negative); Leukocyte Negative Leu/uL (Negative); Nitrite Negative (Negative); Protein, Urine (Dipstick) 200 mg/dL (Neg-Trace); RBC/HPF 0-3 HPF (0-3); Specific Gravity, Urine 1.019 (1.002-1.036); Squamous Epithelial None Seen HPF (0-3); Urobilinogen Normal mg/dL (Less than 2); WBC/HPF 0-3 HPF (0-3)
[2022-01-28 19:35] LABS: Urine Culture Reflex No No
[2022-01-28 20:00] LABS: Creatinine, Urine 30.53 mg/dL (63-166); Microalbumin Urine 132.8 mg/dL (0.5-50.0); Microalbumin/Creat Ratio 4349.8 mg/g (Less than 30)
[2022-01-29] MEDS ORDERED: Lisinopril/Hydrochlorothiazide 20 mg/12.5 mg Tablet PO SCH (09:00)
[2022-01-29] MEDS ORDERED: Rosuvastatin 10 MG TAB PO SCH (09:00)
[2022-01-29] MEDS ORDERED: Amlodipine 5 MG TAB PO SCH (09:00)
[2022-01-29] MEDS ORDERED: Ezetimibe 10 MG TAB PO SCH (09:00)
[2022-01-29] MEDS ORDERED: Labetalol HCl 100 MG TAB PO SCH (09:00)
[2022-01-29 12:15] LABS: #Basophils 0.1 thou/uL (0.0-0.2); #Eosinphils 0.6 thou/uL (0.0-0.7); #Lymphocytes 0.9 thou/uL (1.20-3.40); #Neutrophils 8.2 thou/uL (1.40-6.50); %Basophils 1.4 % (0.0-1.0); %Eosinophils 5.3 % (0.0-10.0); %Lymphocytes 8.3 % (21.0-51.0); %Monocytes 9.6 % (0.0-10.0); %Neutrophils 75.4 % (42.0-75.0); Hemoglobin 11.5 g/dL (14.0-18.0); Mean Corpuscular HGB CONC 32.4 g/dL (32.0-36.0); Mean Corpuscular Hemoglobin 32.4 pg (27.0-31.0); Mean Corpuscular Volume 99.9 fL (78.0-98.0); Mean Platelet Volume 8.2 fL (7.4-10.4); Platelet Count 282 thou/uL (130-400); RBC Distribution Width 13.5 % (11.5-14.5); Red Blood Cell (RBC) Count 3.55 mill/uL (4.70-6.10); White Blood Cell (WBC) Count 10.8 thou/uL (4.8-10.8)
[2022-01-29 12:43] LABS: Anion Gap 11 mmol/L (10-20); BUN (Urea Nitrogen) 23 mg/dL (8.4-25.7); Calc. Creatinine Clearance 61 mL/min (70-130); Calcium 9.1 mg/dL (7.8-10.44); Carbon Dioxide 25 mmol/L (23-31); Cardiac Risk 2.7 (Less than 4.5); Chloride 105 mmol/L (98-107); Cholesterol 115 mg/dl (< 200 Desired); Glucose 140 mg/dL (83-110); HDL Cholesterol 43 mg/dL (>60 Neg Risk); LDL Cholesterol, Calculated 43 mg/dL; Potassium 4.4 mmol/L (3.5-5.1); Sodium 137 mmol/L (136-145); Triglycerides 143 mg/dL (Less than 150)
[2022-01-29] MEDS ORDERED: Clopidogrel Bisulfate 75 MG TAB PO SCH (18:00)
[2022-01-29] MEDS ORDERED: Electrolyte Replacement Protocol 1 EACH FS SCH (18:00)
[2022-01-29] MEDS ORDERED: hydrALAZINE 20 MG/ML VIAL SLOW IVP PRN (18:00)
[2022-01-29] MEDS ORDERED: Labetalol HCl 100 MG/20 ML VIAL SLOW IVP PRN (18:00)
[2022-01-29] MEDS ORDERED: Communication Order-Pharmacy FS ONE (18:00)
[2022-01-29] MEDS ORDERED: Lorazepam 0.5 MG TAB PO PRN (18:03)
[2022-01-29] MEDS: LABETALOL 100 MG TAB PO SCH (20:04)
[2022-01-29] MEDS ORDERED: Dextrose 50% Abboject 50 ML SYRINGE SLOW IVP PRN (20:04)
[2022-01-29] MEDS ORDERED: Dextrose 5% in Water 1,000 ML IV PRN (20:04)
[2022-01-29] MEDS: AMLODIPINE 5 MG TAB PO SCH (20:04)
[2022-01-29] MEDS ORDERED: Insulin Regular 300 UNITS/3 ML VIAL SC PRN ×2 (20:04)
[2022-01-29] MEDS: Atorvastatin Calcium 40 MG TAB PO SCH (21:20)
[2022-01-30 05:53] LABS: #Basophils 0.1 thou/uL (0.0-0.2); #Eosinphils 0.6 thou/uL (0.0-0.7); #Lymphocytes 1.4 thou/uL (1.20-3.40); #Monocytes 1.2 thou/uL (0.11-0.59); #Neutrophils 7.6 thou/uL (1.40-6.50); %Basophils 0.9 % (0.0-1.0); %Eosinophils 5.6 % (0.0-10.0); %Lymphocytes 13.1 % (21.0-51.0); %Monocytes 11.2 % (0.0-10.0); %Neutrophils 69.2 % (42.0-75.0); Hemoglobin 11.7 g/dL (14.0-18.0); Mean Corpuscular HGB CONC 32.5 g/dL (32.0-36.0); Mean Corpuscular Hemoglobin 32.1 pg (27.0-31.0); Mean Corpuscular Volume 98.8 fL (78.0-98.0); Mean Platelet Volume 8.3 fL (7.4-10.4); Platelet Count 270 thou/uL (130-400); RBC Distribution Width 13.4 % (11.5-14.5); Red Blood Cell (RBC) Count 3.65 mill/uL (4.70-6.10)
[2022-01-30 06:43] LABS: Anion Gap 14 mmol/L (10-20); BUN (Urea Nitrogen) 22 mg/dL (8.4-25.7); Calc. Creatinine Clearance 66 mL/min (70-130); Calcium 9.1 mg/dL (7.8-10.44); Carbon Dioxide 23 mmol/L (23-31); Chloride 106 mmol/L (98-107); Glucose 100 mg/dL (83-110); Magnesium 1.5 mg/dL (1.6-2.6); Potassium 4.1 mmol/L (3.5-5.1); Sodium 139 mmol/L (136-145)
[2022-01-30] MEDS ORDERED: Magnesium Sulfate In Water 4 GM in Premix Bag 1 BAG IVPB SCH (07:30)
[2022-01-30] MEDS ORDERED: Glimepiride 1 MG TAB PO SCH (08:00)
[2022-01-30] MEDS: Heparin 5,000 UNITS/ML VIAL SC SCH ×2 (08:07→21:11)
[2022-01-30] MEDS: Lisinopril 20 MG TAB PO SCH (08:07)
[2022-01-30] MEDS ORDERED: Clopidogrel Bisulfate 75 MG TAB PO SCH ×2 (09:00)
[2022-01-30] MEDS ORDERED: ROSUVASTATIN 10 MG TAB PO SCH (09:00)
[2022-01-30] MEDS: AMLODIPINE 5 MG TAB PO SCH ×2 (09:53→21:14)
[2022-01-30] MEDS: EZETIMIBE 10 MG TAB PO SCH (09:53)
[2022-01-30] MEDS: LABETALOL 100 MG TAB PO SCH ×2 (09:54→21:14)
[2022-01-30] MEDS: Empagliflozin 10 MG TAB PO SCH (09:59)
[2022-01-30] MEDS: Clopidogrel Bisulfate 75 MG TAB PO SCH (12:42)
[2022-01-30] MEDS: Atorvastatin Calcium 40 MG TAB PO SCH (21:11)
[2022-01-31 05:56] LABS: Anion Gap 11 mmol/L (10-20); BUN (Urea Nitrogen) 31 mg/dL (8.4-25.7); Calc. Creatinine Clearance 52 mL/min (70-130); Calcium 9.2 mg/dL (7.8-10.44); Carbon Dioxide 24 mmol/L (23-31); Chloride 107 mmol/L (98-107); Glucose 150 mg/dL (83-110); Magnesium 2.3 mg/dL (1.6-2.6); Potassium 3.7 mmol/L (3.5-5.1); Sodium 138 mmol/L (136-145)
[2022-01-31] MEDS: AMLODIPINE 5 MG TAB PO SCH ×2 (08:48→21:30)
[2022-01-31] MEDS: LABETALOL 100 MG TAB PO SCH ×2 (08:48→21:32)
[2022-01-31] MEDS: metFORMIN 500 MG TAB PO SCH ×2 (08:49→16:49)
[2022-01-31] MEDS: EZETIMIBE 10 MG TAB PO SCH (08:49)
[2022-01-31] MEDS: Clopidogrel Bisulfate 75 MG TAB PO SCH (08:50)
[2022-01-31] MEDS: Lisinopril 20 MG TAB PO SCH (08:51)
[2022-01-31] MEDS: Empagliflozin 10 MG TAB PO SCH (08:51)
[2022-01-31] MEDS: Heparin 5,000 UNITS/ML VIAL SC SCH ×2 (08:52→21:29)
[2022-01-31] MEDS: Atorvastatin Calcium 40 MG TAB PO SCH (21:29)
[2022-02-01] MEDS: Acetaminophen 325 MG TAB PO PRN ×2 (05:13→20:18)
[2022-02-01] MEDS: Empagliflozin 10 MG TAB PO SCH (08:47)
[2022-02-01] MEDS: Lisinopril 20 MG TAB PO SCH ×2 (08:47→20:19)
[2022-02-01] MEDS: metFORMIN 500 MG TAB PO SCH ×2 (08:48→17:25)
[2022-02-01] MEDS: AMLODIPINE 5 MG TAB PO SCH ×2 (08:49→20:21)
[2022-02-01] MEDS: Clopidogrel Bisulfate 75 MG TAB PO SCH (08:50)
[2022-02-01] MEDS: EZETIMIBE 10 MG TAB PO SCH (08:50)
[2022-02-01] MEDS: LABETALOL 100 MG TAB PO SCH ×2 (08:51→20:21)
[2022-02-01] MEDS: Heparin 5,000 UNITS/ML VIAL SC SCH ×2 (08:52→20:29)
[2022-02-01 10:16] LABS: Anion Gap 14 mmol/L (10-20); BUN (Urea Nitrogen) 35 mg/dL (8.4-25.7); BUN/Creatinine Ratio 31.25; Calc. Creatinine Clearance 56 mL/min (70-130); Calcium 9.2 mg/dL (7.8-10.44); Carbon Dioxide 20 mmol/L (23-31); Chloride 110 mmol/L (98-107); Glucose 147 mg/dL (83-110); Phosphorus 3.9 mg/dL (2.3-4.7); Potassium 4.6 mmol/L (3.5-5.1); Sodium 139 mmol/L (136-145)
[2022-02-01] MEDS: Atorvastatin Calcium 40 MG TAB PO SCH (20:19)
[2022-02-02 06:02] LABS: Albumin 3.4 g/dL (3.4-4.8); Anion Gap 15 mmol/L (10-20); BUN (Urea Nitrogen) 35 mg/dL (8.4-25.7); BUN/Creatinine Ratio 30.43; Calc. Creatinine Clearance 54 mL/min (70-130); Calcium 9.5 mg/dL (7.8-10.44); Carbon Dioxide 20 mmol/L (23-31); Chloride 108 mmol/L (98-107); Glucose 156 mg/dL (83-110); Phosphorus 4.2 mg/dL (2.3-4.7); Potassium 4.5 mmol/L (3.5-5.1); Sodium 138 mmol/L (136-145)
[2022-02-02] MEDS: Empagliflozin 10 MG TAB PO SCH (08:10)
[2022-02-02] MEDS: Sodium Bicarbonate Tab 325 MG TAB PO SCH ×2 (08:10→20:45)
[2022-02-02] MEDS: metFORMIN 500 MG TAB PO SCH ×2 (08:12→16:20)
[2022-02-02] MEDS: Clopidogrel Bisulfate 75 MG TAB PO SCH (08:13)
[2022-02-02] MEDS: EZETIMIBE 10 MG TAB PO SCH (08:13)
[2022-02-02] MEDS: Heparin 5,000 UNITS/ML VIAL SC SCH (08:15)
[2022-02-02] MEDS: Acetaminophen 325 MG TAB PO PRN ×2 (08:21→23:08)
[2022-02-02] MEDS: AMLODIPINE 5 MG TAB PO SCH ×2 (09:25→20:46)
[2022-02-02 10:24] LABS: 24 Hr Creatinine 860.8 mg/24 hr (950-2490); Creatinine, Urine 43.04 mg/dL (63-166)
[2022-02-02] MEDS: LABETALOL 100 MG TAB PO SCH ×2 (11:53→20:47)
[2022-02-02] MEDS: Lisinopril 20 MG TAB PO SCH ×2 (11:54→20:46)
[2022-02-02 16:37] LABS: A/G Ratio 0.9 (0.7-1.7); Albumin 2.7 g/dL (2.9-4.4); Alpha 1 0.4 g/dL (0.0-0.4); Beta 0.8 g/dL (0.7-1.3); Gamma 0.9 g/dL (0.4-1.8); Globulin, Total 3.1 g/dL (2.2-3.9); M-Spike Note: g/dL (Not Observed)
[2022-02-02 17:13] LABS: Albumin, PEP 24hr Ur 78.1 % (NOT ESTAB.); Alpha-1-Globulin, PEP 24h Ur 7.3 % (NOT ESTAB.); Alpha-2-Globulin, PEP 24h Ur 5.7 % (NOT ESTAB.); Beta Globulin, PEP 24h Ur 5.8 % (NOT ESTAB.); Gamma Globulin, PEP 24h Ur 3.1 % (NOT ESTAB.); M-Spike,% PEP 24hr Ur Not Observed % (Not Observed); Protein, PEP 24hr calculated 8960 mg/24 hr (30-150); Protein, Urine 253.1 mg/dL (Not Estab.)
[2022-02-02] MEDS: Atorvastatin Calcium 40 MG TAB PO SCH (20:45)
[2022-02-02] MEDS: Apixaban 2.5 MG TAB PO SCH (23:04)
[2022-02-03 05:22] LABS: #Basophils 0.1 thou/uL (0.0-0.2); #Eosinphils 0.5 thou/uL (0.0-0.7); #Lymphocytes 1.6 thou/uL (1.20-3.40); #Neutrophils 5.1 thou/uL (1.40-6.50); %Basophils 0.9 % (0.0-1.0); %Eosinophils 6.4 % (0.0-10.0); %Lymphocytes 19.6 % (21.0-51.0); %Neutrophils 61.1 % (42.0-75.0); Hemoglobin 11.8 g/dL (14.0-18.0); Mean Corpuscular HGB CONC 32.7 g/dL (32.0-36.0); Mean Corpuscular Hemoglobin 32.1 pg (27.0-31.0); Mean Corpuscular Volume 98.1 fL (78.0-98.0); Platelet Count 262 thou/uL (130-400); RBC Distribution Width 13.5 % (11.5-14.5); Red Blood Cell (RBC) Count 3.66 mill/uL (4.70-6.10); White Blood Cell (WBC) Count 8.4 thou/uL (4.8-10.8)
[2022-02-03 05:42] LABS: Anion Gap 15 mmol/L (10-20); BUN (Urea Nitrogen) 30 mg/dL (8.4-25.7); Calc. Creatinine Clearance 58 mL/min (70-130); Calcium 9.7 mg/dL (7.8-10.44); Carbon Dioxide 20 mmol/L (23-31); Chloride 107 mmol/L (98-107); Glucose 88 mg/dL (83-110); Potassium 4.7 mmol/L (3.5-5.1); Sodium 137 mmol/L (136-145)
[2022-02-03] MEDS: Acetaminophen 325 MG TAB PO PRN ×3 (06:10→21:27)
[2022-02-03] MEDS: Sodium Bicarbonate Tab 325 MG TAB PO SCH ×2 (09:49→21:28)
[2022-02-03] MEDS: Lisinopril 20 MG TAB PO SCH ×2 (09:49→21:28)
[2022-02-03] MEDS: Empagliflozin 10 MG TAB PO SCH (09:49)
[2022-02-03] MEDS: metFORMIN 500 MG TAB PO SCH ×2 (09:50→18:13)
[2022-02-03] MEDS: LABETALOL 100 MG TAB PO SCH ×2 (09:51→21:30)
[2022-02-03] MEDS: AMLODIPINE 5 MG TAB PO SCH ×2 (09:51→21:30)
[2022-02-03] MEDS: Clopidogrel Bisulfate 75 MG TAB PO SCH (09:52)
[2022-02-03] MEDS: EZETIMIBE 10 MG TAB PO SCH (09:52)
[2022-02-03] MEDS: Apixaban 2.5 MG TAB PO SCH ×2 (09:53→21:30)
[2022-02-03] MEDS: Atorvastatin Calcium 40 MG TAB PO SCH (21:28)
[2022-02-04] MEDS: Acetaminophen 325 MG TAB PO PRN ×3 (02:03→20:52)
[2022-02-04] MEDS: Empagliflozin 10 MG TAB PO SCH (10:46)
[2022-02-04] MEDS: Sodium Bicarbonate Tab 325 MG TAB PO SCH ×2 (10:46→20:52)
[2022-02-04] MEDS: Lisinopril 20 MG TAB PO SCH ×2 (10:47→20:50)
[2022-02-04] MEDS: LABETALOL 100 MG TAB PO SCH ×2 (10:49→20:53)
[2022-02-04] MEDS: AMLODIPINE 5 MG TAB PO SCH (10:50)
[2022-02-04] MEDS: EZETIMIBE 10 MG TAB PO SCH (10:51)
[2022-02-04] MEDS: metFORMIN 500 MG TAB PO SCH ×2 (10:52→18:57)
[2022-02-04] MEDS: Apixaban 2.5 MG TAB PO SCH (10:53)
[2022-02-04] MEDS: Clopidogrel Bisulfate 75 MG TAB PO SCH (10:54)
[2022-02-04] MEDS: Apixaban 5 MG TAB PO SCH (20:52)
[2022-02-04] MEDS: Atorvastatin Calcium 40 MG TAB PO SCH (20:52)
[2022-02-05] MEDS: Acetaminophen 325 MG TAB PO PRN ×2 (02:58→09:31)
[2022-02-05] MEDS: Empagliflozin 10 MG TAB PO SCH (09:31)
[2022-02-05] MEDS: Apixaban 5 MG TAB PO SCH (09:31)
[2022-02-05] MEDS: Sodium Bicarbonate Tab 325 MG TAB PO SCH (09:31)
[2022-02-05] MEDS: metFORMIN 500 MG TAB PO SCH (09:34)
[2022-02-05] MEDS: Clopidogrel Bisulfate 75 MG TAB PO SCH (09:34)
[2022-02-05] MEDS: EZETIMIBE 10 MG TAB PO SCH (09:35)
[2022-02-05] MEDS: LABETALOL 100 MG TAB PO SCH (09:35)
[2022-02-05] MEDS: Lisinopril 20 MG TAB PO SCH (10:49)
[2022-02-05 15:15] VITALS: BP 173/60; TEMP 97.7
== END 2022-02-05 18:00 | DRG 62 ==
LOC: ERS 09:31 → CCU 11:46 → NEURO 01-30 20:01
PROVIDERS: ADMIT Hospitalist; ATTEND Internal Medicine
DX: I63.9 Cerebral infarction, unspecified (principal); I48.92 Unspecified atrial flutter; E44.0 Moderate protein-calorie malnutrition; I48.20 Chronic atrial fibrillation, unspecified; I42.9 Cardiomyopathy, unspecified; I12.9 Hypertensive chronic kidney disease with stage 1 through stage 4 chronic kidney disease, or unspecified chronic kidney disease; E11.22 Type 2 diabetes mellitus with diabetic chronic kidney disease; R29.810 Facial weakness; R29.705 NIHSS score 5; I65.21 Occlusion and stenosis of right carotid artery; E78.5 Hyperlipidemia, unspecified; E11.628 Type 2 diabetes mellitus with other skin complications; L98.9 Disorder of the skin and subcutaneous tissue, unspecified; M19.90 Unspecified osteoarthritis, unspecified site; S99.921A Unspecified injury of right foot, initial encounter; D63.1 Anemia in chronic kidney disease; I65.01 Occlusion and stenosis of right vertebral artery; R47.02 Dysphasia; R47.1 Dysarthria and anarthria; E11.21 Type 2 diabetes mellitus with diabetic nephropathy; I08.2 Rheumatic disorders of both aortic and tricuspid valves; E11.621 Type 2 diabetes mellitus with foot ulcer; F17.210 Nicotine dependence, cigarettes, uncomplicated; E78.00 Pure hypercholesterolemia, unspecified; N18.30 Chronic kidney disease, stage 3 unspecified; L97.509 Non-pressure chronic ulcer of other part of unspecified foot with unspecified severity; E11.51 Type 2 diabetes mellitus with diabetic peripheral angiopathy without gangrene; K21.9 Gastro-esophageal reflux disease without esophagitis; Z20.822 Contact with and (suspected) exposure to COVID-19; Z96.652 Presence of left artificial knee joint; Z68.23 Body mass index [BMI] 23.0-23.9, adult; Z98.890 Other specified postprocedural states; Z88.8 Allergy status to other drugs, medicaments and biological substances; Z88.5 Allergy status to narcotic agent; Z79.84 Long term (current) use of oral hypoglycemic drugs; Z79.899 Other long term (current) drug therapy; Z72.89 Other problems related to lifestyle; Z98.42 Cataract extraction status, left eye; Z98.41 Cataract extraction status, right eye
CPT/HCPCS: 36415; 36416; 37195; 70450; 70496; 70498; 71045; 80048; 80053; 80061; 80069; 81001; 82043; 82570; 83735; 84156; 84165; 84166; 85025; 85610; 85730; 93005; 93306; J1644; J1815; J2405; J2997; J3101; J3475; Q9967; U0002; U0003; U0005

== ENCOUNTER 2022-07-20 20:46 | Observation (INO) | payer MEDICARE ==
[2022-07-20 21:46] LABS: #Basophils 0.1 thou/uL (0.0-0.2); #Eosinphils 0.3 thou/uL (0.0-0.7); #Lymphocytes 1.3 thou/uL (1.20-3.40); #Monocytes 0.7 thou/uL (0.11-0.59); #Neutrophils 9.7 thou/uL (1.40-6.50); %Basophils 0.6 % (0.0-1.0); %Eosinophils 2.2 % (0.0-10.0); %Lymphocytes 10.6 % (21.0-51.0); %Monocytes 5.7 % (0.0-10.0); %Neutrophils 80.8 % (42.0-75.0); Hemoglobin 8.9 g/dL (14.0-18.0); Mean Corpuscular HGB CONC 30.8 g/dL (32.0-36.0); Mean Corpuscular Hemoglobin 28.1 pg (27.0-31.0); Mean Corpuscular Volume 91.3 fl (78.0-98.0); Mean Platelet Volume 7.7 fL (7.4-10.4); Platelet Count 406 10x3/uL (130-400); RBC Distribution Width 14.9 % (11.5-14.5); Red Blood Cell (RBC) Count 3.17 mill/uL (4.70-6.10)
[2022-07-20 22:06] LABS: ALT (SGPT) 18 U/L (8-55); AST (SGOT) 13 U/L (5-34); Albumin 3.2 g/dL (3.4-4.8); Alkaline Phosphatase 116 U/L (40-110); Anion Gap 13 mmol/L (10-20); BUN (Urea Nitrogen) 28 mg/dL (8.4-25.7); Bilirubin, Total 0.4 mg/dL (0.2-1.2); Calc. Creatinine Clearance 0 mL/min (70-130); Calcium 8.6 mg/dL (7.8-10.44); Carbon Dioxide 22 mmol/L (23-31); Chloride 108 mmol/L (98-107); Estimated GFR 59; Globulin 2.8 g/dL (2.4-3.5); Glucose 116 mg/dL (83-110); Sodium 138 mmol/L (136-145)
[2022-07-20 22:27] LABS: CKMB 1.7 ng/mL (0-6.6)
[2022-07-20] MEDS ORDERED: Nitroglycerin 2% Ointment 1 INCH/1 GM Packet ONE (23:46)
[2022-07-20] MEDS ORDERED: Furosemide 40 MG/4 ML VIAL ONE (23:46)
[2022-07-20] MEDS ORDERED: Aspirin Chewable 81 MG TAB ONE (23:51)
[2022-07-21 03:03] LABS: Troponin I 0.046 ng/mL (< 0.028)
[2022-07-21 05:40] LABS: #Lymphocytes 0.5 thou/uL (1.20-3.40); #Monocytes 0.1 thou/uL (0.11-0.59); #Neutrophils 6.6 thou/uL (1.40-6.50); %Basophils 0.4 % (0.0-1.0); %Eosinophils 0.2 % (0.0-10.0); %Lymphocytes 6.5 % (21.0-51.0); Hemoglobin 9.6 g/dL (14.0-18.0); Mean Corpuscular HGB CONC 31.7 g/dL (32.0-36.0); Mean Corpuscular Hemoglobin 29.3 pg (27.0-31.0); Mean Corpuscular Volume 92.5 fl (78.0-98.0); Platelet Count 379 10x3/uL (130-400); RBC Distribution Width 15.1 % (11.5-14.5); Red Blood Cell (RBC) Count 3.26 mill/uL (4.70-6.10); White Blood Cell (WBC) Count 7.2 10x3/uL (4.8-10.8)
[2022-07-21] MEDS ORDERED: Furosemide 20 MG/2 ML VIAL SLOW IVP SCH (06:00)
[2022-07-21 06:01] LABS: Anion Gap 16 mmol/L (10-20); BUN (Urea Nitrogen) 32 mg/dL (8.4-25.7); Calc. Creatinine Clearance 0 mL/min (70-130); Calcium 8.5 mg/dL (7.8-10.44); Carbon Dioxide 17 mmol/L (23-31); Chloride 103 mmol/L (98-107); Estimated GFR 54; Magnesium 1.7 mg/dL (1.6-2.6); Potassium 4.5 mmol/L (3.5-5.1); Sodium 131 mmol/L (136-145)
[2022-07-21] MEDS ORDERED: Furosemide 40 MG/4 ML VIAL ONE (06:04)
[2022-07-21 06:05] LABS: Troponin I 0.043 ng/mL (< 0.028)
[2022-07-21 06:07] LABS: Glucose 401 mg/dL (83-110)
[2022-07-21] MEDS ORDERED: HumaLOG 300 UNITS/3 ML VIAL SC PRN ×2 (06:11)
[2022-07-21] MEDS ORDERED: Dextrose 5% in Water 1,000 ML IV PRN (06:11)
[2022-07-21] MEDS ORDERED: Dextrose 50% Abboject 50 ML SYRINGE SLOW IVP PRN (06:11)
[2022-07-21] MEDS ORDERED: HumaLOG 300 UNITS/3 ML VIAL ONE (06:43)
[2022-07-21] MEDS ORDERED: Labetalol HCl 100 MG/20 ML VIAL SLOW IVP PRN (08:15)
[2022-07-21 08:24] VITALS: BP 166/97; TEMP 97.9
[2022-07-21] MEDS ORDERED: NIFEdipine XL 30 MG TAB PO SCH (09:00)
== END 2022-07-21 09:57 | disposition home health service (06) ==
LOC: ERS 20:46 → ERHOLD 07-21 01:34
PROVIDERS: ADMIT Internal Medicine; ATTEND Internal Medicine
DX: I13.0 Hypertensive heart and chronic kidney disease with heart failure and stage 1 through stage 4 chronic kidney disease, or unspecified chronic kidney disease (principal); E11.22 Type 2 diabetes mellitus with diabetic chronic kidney disease; N18.2 Chronic kidney disease, stage 2 (mild); I50.33 Acute on chronic diastolic (congestive) heart failure; D63.1 Anemia in chronic kidney disease; E11.51 Type 2 diabetes mellitus with diabetic peripheral angiopathy without gangrene; I48.91 Unspecified atrial fibrillation; I48.92 Unspecified atrial flutter; E78.5 Hyperlipidemia, unspecified; I45.10 Unspecified right bundle-branch block; J90 Pleural effusion, not elsewhere classified; J98.11 Atelectasis; Z86.73 Personal history of transient ischemic attack (TIA), and cerebral infarction without residual deficits; Z87.891 Personal history of nicotine dependence; Z79.01 Long term (current) use of anticoagulants; Z79.84 Long term (current) use of oral hypoglycemic drugs; Z79.899 Other long term (current) drug therapy; Z88.5 Allergy status to narcotic agent; Z88.8 Allergy status to other drugs, medicaments and biological substances; Z89.022 Acquired absence of left finger(s); Z89.411 Acquired absence of right great toe; Z89.421 Acquired absence of other right toe(s); Z89.612 Acquired absence of left leg above knee; Z95.820 Peripheral vascular angioplasty status with implants and grafts
CPT/HCPCS: 71045; 71275; 80048; 80053; 82553; 83735; 83880; 84484 ×3; 85025 ×2; 93005; 93971; 96374; 99285; G0378; 36415; 36416; J1815; J1940; Q9967

== ENCOUNTER 2022-07-23 13:01 | Inpatient (IN) | payer MEDICARE ==
[2022-07-23 13:42] LABS: #Basophils 0.1 thou/uL (0.0-0.2); #Eosinphils 0.1 thou/uL (0.0-0.7); #Lymphocytes 0.6 thou/uL (1.20-3.40); #Neutrophils 10.4 thou/uL (1.40-6.50); %Basophils 0.6 % (0.0-1.0); %Eosinophils 0.5 % (0.0-10.0); %Lymphocytes 4.9 % (21.0-51.0); %Monocytes 8.4 % (0.0-10.0); %Neutrophils 85.7 % (42.0-75.0); Hemoglobin 9.2 g/dL (14.0-18.0); Mean Corpuscular HGB CONC 31.3 g/dL (32.0-36.0); Mean Corpuscular Hemoglobin 27.8 pg (27.0-31.0); Mean Corpuscular Volume 88.8 fl (78.0-98.0); Platelet Count 418 10x3/uL (130-400); RBC Distribution Width 15.2 % (11.5-14.5); Red Blood Cell (RBC) Count 3.31 mill/uL (4.70-6.10); White Blood Cell (WBC) Count 12.1 10x3/uL (4.8-10.8)
[2022-07-23 14:00] LABS: ALT (SGPT) 15 U/L (8-55); AST (SGOT) 12 U/L (5-34); Albumin 3.4 g/dL (3.4-4.8); Alkaline Phosphatase 124 U/L (40-110); Anion Gap 14 mmol/L (10-20); BUN (Urea Nitrogen) 33 mg/dL (8.4-25.7); Bilirubin, Total 0.6 mg/dL (0.2-1.2); Calc. Creatinine Clearance 0 mL/min (70-130); Carbon Dioxide 21 mmol/L (23-31); Chloride 107 mmol/L (98-107); Estimated GFR 65; Globulin 2.9 g/dL (2.4-3.5); Glucose 106 mg/dL (83-110); Potassium 5.1 mmol/L (3.5-5.1); Protein, Total 6.3 g/dL (5.8-8.1); Sodium 137 mmol/L (136-145)
[2022-07-23] MEDS ORDERED: Furosemide 40 MG/4 ML VIAL ONE (14:07)
[2022-07-23 14:41] LABS: CKMB 1.7 ng/mL (0-6.6)
[2022-07-23] MEDS ORDERED: Aspirin Chewable 81 MG TAB ONE (14:49)
[2022-07-23] MEDS ORDERED: HumaLOG 300 UNITS/3 ML VIAL SC PRN ×4 (15:53→20:00)
[2022-07-23] MEDS ORDERED: Dextrose 50% Abboject 50 ML SYRINGE SLOW IVP PRN (15:53)
[2022-07-23] MEDS ORDERED: Acetaminophen 325 MG TAB PO PRN ×2 (15:53→19:58)
[2022-07-23] MEDS ORDERED: Dextrose 5% in Water 1,000 ML IV PRN (15:53)
[2022-07-23] MEDS ORDERED: Metoclopramide HCl 10 MG/2 ML VIAL IVP PRN ×2 (15:58→20:01)
[2022-07-23 17:15] LABS: Troponin I 0.299 ng/mL (< 0.028)
[2022-07-23] MEDS: Atorvastatin Calcium 40 MG TAB PO SCH (20:42)
[2022-07-23] MEDS: Apixaban 5 MG TAB PO SCH (20:43)
[2022-07-23] MEDS: Metoprolol Tartrate 50 MG TAB PO SCH (20:43)
[2022-07-23] MEDS ORDERED: Apixaban 5 MG TAB PO SCH (21:00)
[2022-07-23] MEDS ORDERED: Metoprolol Tartrate 50 MG TAB PO SCH (21:00)
[2022-07-23] MEDS ORDERED: Atorvastatin Calcium 40 MG TAB PO SCH (21:00)
[2022-07-23] MEDS ORDERED: Furosemide 40 MG/4 ML VIAL SLOW IVP SCH (21:30)
[2022-07-24 04:33] LABS: #Eosinphils 0.1 thou/uL (0.0-0.7); #Lymphocytes 0.6 thou/uL (1.20-3.40); #Monocytes 0.8 thou/uL (0.11-0.59); #Neutrophils 7.1 thou/uL (1.40-6.50); %Eosinophils 0.7 % (0.0-10.0); %Lymphocytes 6.7 % (21.0-51.0); %Monocytes 9.6 % (0.0-10.0); Hemoglobin 8.4 g/dL (14.0-18.0); Mean Corpuscular HGB CONC 31.1 g/dL (32.0-36.0); Mean Corpuscular Hemoglobin 27.4 pg (27.0-31.0); Mean Corpuscular Volume 87.9 fl (78.0-98.0); Mean Platelet Volume 8.1 fL (7.4-10.4); Platelet Count 361 10x3/uL (130-400); RBC Distribution Width 15.2 % (11.5-14.5); Red Blood Cell (RBC) Count 3.07 mill/uL (4.70-6.10); White Blood Cell (WBC) Count 8.5 10x3/uL (4.8-10.8)
[2022-07-24 04:53] LABS: Anion Gap 11 mmol/L (10-20); BUN (Urea Nitrogen) 32 mg/dL (8.4-25.7); Calc. Creatinine Clearance 47 mL/min (70-130); Calcium 8.6 mg/dL (7.8-10.44); Carbon Dioxide 23 mmol/L (23-31); Chloride 103 mmol/L (98-107); Estimated GFR 57; Glucose 100 mg/dL (83-110); Iron 11 ug/dL (65-175); Iron Binding Capacity, Total 258 mcg/dL (261-462); Potassium 3.9 mmol/L (3.5-5.1); Sodium 133 mmol/L (136-145)
[2022-07-24 05:19] LABS: Ferritin 55.64 ng/mL (22-322); Thyroid Stimulating Hormone 1.1755 uIU/mL (0.35-4.94)
[2022-07-24] MEDS ORDERED: Furosemide 40 MG/4 ML VIAL SLOW IVP SCH (06:00)
[2022-07-24] MEDS: Furosemide 40 MG/4 ML VIAL SLOW IVP SCH ×2 (06:11→14:01)
[2022-07-24] MEDS ORDERED: Ezetimibe 10 MG TAB PO SCH (09:00)
[2022-07-24] MEDS ORDERED: FLU VACC QS2022-23(65YR UP)/PF 240 MCG/0.7 ML SYRINGE IM ONE (09:00)
[2022-07-24] MEDS ORDERED: Aspirin Chewable 81 MG TAB PO SCH (09:00)
[2022-07-24] MEDS: Aspirin Chewable 81 MG TAB PO SCH (11:03)
[2022-07-24] MEDS: Metoprolol Tartrate 50 MG TAB PO SCH ×3 (11:04→21:46)
[2022-07-24] MEDS: Ezetimibe 10 MG TAB PO SCH (11:04)
[2022-07-24] MEDS: Apixaban 5 MG TAB PO SCH ×2 (11:04→21:16)
[2022-07-24] MEDS ORDERED: tiZANidine HCl 4 MG TAB PO PRN (14:55)
[2022-07-24 15:09] VITALS: BMI 23.8
[2022-07-24] MEDS ORDERED: REMDESIVIR 200 MG in Sodium Chloride 0.9% 250 ML 210 ML IV SCH (16:00)
[2022-07-24] MEDS: metFORMIN 500 MG TAB PO SCH (17:21)
[2022-07-24] MEDS: Cholecalciferol 1,000 UNITS (25 MCG) TAB PO SCH (21:15)
[2022-07-24] MEDS: Atorvastatin Calcium 40 MG TAB PO SCH (21:15)
[2022-07-24] MEDS ORDERED: Ondansetron PF 4 MG/2 ML Vial IVP PRN (21:26)
[2022-07-24] MEDS ORDERED: Ondansetron ODT 4 MG TAB PO PRN (21:26)
[2022-07-25 05:02] LABS: #Lymphocytes 0.7 thou/uL (1.20-3.40); #Neutrophils 8.4 thou/uL (1.40-6.50); %Basophils 0.4 % (0.0-1.0); %Eosinophils 0.1 % (0.0-10.0); %Lymphocytes 7.1 % (21.0-51.0); %Monocytes 10.1 % (0.0-10.0); %Neutrophils 82.3 % (42.0-75.0); Hemoglobin 8.3 g/dL (14.0-18.0); Mean Corpuscular HGB CONC 31.1 g/dL (32.0-36.0); Mean Corpuscular Hemoglobin 27.2 pg (27.0-31.0); Mean Corpuscular Volume 87.5 fl (78.0-98.0); Mean Platelet Volume 8.1 fL (7.4-10.4); Platelet Count 327 10x3/uL (130-400); RBC Distribution Width 15.4 % (11.5-14.5); Red Blood Cell (RBC) Count 3.07 mill/uL (4.70-6.10); White Blood Cell (WBC) Count 10.2 10x3/uL (4.8-10.8)
[2022-07-25 05:19] LABS: Anion Gap 14 mmol/L (10-20); BUN (Urea Nitrogen) 35 mg/dL (8.4-25.7); Calc. Creatinine Clearance 44 mL/min (70-130); Carbon Dioxide 22 mmol/L (23-31); Chloride 98 mmol/L (98-107); Estimated GFR 58; Glucose 107 mg/dL (83-110); Potassium 3.8 mmol/L (3.5-5.1); Sodium 130 mmol/L (136-145)
[2022-07-25 05:21] LABS: ALT (SGPT) 13 U/L (8-55); AST (SGOT) 13 U/L (5-34); Albumin 2.9 g/dL (3.4-4.8); Alkaline Phosphatase 102 U/L (40-110); Bilirubin, Direct 0.2 mg/dL (0.1-0.3); Bilirubin, Total 0.5 mg/dL (0.2-1.2); Protein, Total 5.4 g/dL (5.8-8.1)
[2022-07-25] MEDS: Furosemide 40 MG/4 ML VIAL SLOW IVP SCH ×2 (05:27→15:13)
[2022-07-25] MEDS ORDERED: Amlodipine 5 MG TAB PO SCH (09:00)
[2022-07-25] MEDS ORDERED: Ferrous Sulfate 325 MG TAB PO SCH (09:30)
[2022-07-25] MEDS: REMDESIVIR 100 MG in Sodium Chloride 0.9% 250 ML 230 ML IV SCH (09:48)
[2022-07-25] MEDS: Zinc Sulfate 220 MG CAP PO SCH (09:48)
[2022-07-25] MEDS: Ezetimibe 10 MG TAB PO SCH (09:49)
[2022-07-25] MEDS: Aspirin Chewable 81 MG TAB PO SCH (09:49)
[2022-07-25] MEDS: Apixaban 5 MG TAB PO SCH ×2 (09:49→20:05)
[2022-07-25] MEDS: Ascorbic Acid 500 mg Chewable Tablet PO SCH (09:49)
[2022-07-25] MEDS: Dexamethasone 4 mg/ml Vial SLOW IVP SCH (09:50)
[2022-07-25] MEDS: metFORMIN 500 MG TAB PO SCH ×2 (09:50→17:39)
[2022-07-25] MEDS: Glimepiride 1 MG TAB PO SCH (09:51)
[2022-07-25] MEDS: Metoprolol Tartrate 50 MG TAB PO SCH (09:53)
[2022-07-25] MEDS: Atorvastatin Calcium 40 MG TAB PO SCH (20:05)
[2022-07-25] MEDS: Cholecalciferol 1,000 UNITS (25 MCG) TAB PO SCH (20:05)
[2022-07-26 05:11] LABS: #Monocytes 0.9 thou/uL (0.11-0.59); %Basophils 0.1 % (0.0-1.0); %Eosinophils 0.2 % (0.0-10.0); %Lymphocytes 12.9 % (21.0-51.0); %Monocytes 11.4 % (0.0-10.0); %Neutrophils 75.4 % (42.0-75.0); Hemoglobin 10.1 g/dL (14.0-18.0); Mean Corpuscular Hemoglobin 27.2 pg (27.0-31.0); Mean Corpuscular Volume 87.8 fl (78.0-98.0); Mean Platelet Volume 8.1 fL (7.4-10.4); Platelet Count 393 10x3/uL (130-400); RBC Distribution Width 15.2 % (11.5-14.5); Red Blood Cell (RBC) Count 3.69 mill/uL (4.70-6.10)
[2022-07-26 05:31] LABS: Magnesium 1.7 mg/dL (1.6-2.6)
[2022-07-26 05:32] LABS: Anion Gap 15 mmol/L (10-20); BUN (Urea Nitrogen) 52 mg/dL (8.4-25.7); Calc. Creatinine Clearance 42 mL/min (70-130); Calcium 8.5 mg/dL (7.8-10.44); Carbon Dioxide 23 mmol/L (23-31); Chloride 98 mmol/L (98-107); Estimated GFR 56; Glucose 109 mg/dL (83-110); Sodium 132 mmol/L (136-145)
[2022-07-26 05:33] LABS: ALT (SGPT) 16 U/L (8-55); AST (SGOT) 19 U/L (5-34); Albumin 3.1 g/dL (3.4-4.8); Alkaline Phosphatase 103 U/L (40-110); Bilirubin, Direct 0.2 mg/dL (0.1-0.3); Bilirubin, Total 0.4 mg/dL (0.2-1.2); Protein, Total 5.9 g/dL (5.8-8.1)
[2022-07-26] MEDS: Furosemide 40 MG/4 ML VIAL SLOW IVP SCH ×2 (06:01→14:28)
[2022-07-26] MEDS: REMDESIVIR 100 MG in Sodium Chloride 0.9% 250 ML 230 ML IV SCH (08:26)
[2022-07-26] MEDS: Ascorbic Acid 500 mg Chewable Tablet PO SCH (08:27)
[2022-07-26] MEDS: Aspirin Chewable 81 MG TAB PO SCH (08:27)
[2022-07-26] MEDS: Apixaban 5 MG TAB PO SCH ×2 (08:27→20:43)
[2022-07-26] MEDS: metFORMIN 500 MG TAB PO SCH ×2 (08:28→16:43)
[2022-07-26] MEDS: Dexamethasone 4 mg/ml Vial SLOW IVP SCH (08:28)
[2022-07-26] MEDS: Zinc Sulfate 220 MG CAP PO SCH (08:28)
[2022-07-26] MEDS: Ezetimibe 10 MG TAB PO SCH (08:28)
[2022-07-26] MEDS: Glimepiride 1 MG TAB PO SCH (08:36)
[2022-07-26] MEDS: Cholecalciferol 1,000 UNITS (25 MCG) TAB PO SCH (20:43)
[2022-07-26] MEDS: Atorvastatin Calcium 40 MG TAB PO SCH (20:43)
[2022-07-27] MEDS: Furosemide 40 MG/4 ML VIAL SLOW IVP SCH ×2 (05:09→16:28)
[2022-07-27] MEDS ORDERED: Ferrous Sulfate 325 MG TAB PO SCH (08:00)
[2022-07-27] MEDS: Ascorbic Acid 500 mg Chewable Tablet PO SCH (09:34)
[2022-07-27] MEDS: Zinc Sulfate 220 MG CAP PO SCH (09:34)
[2022-07-27] MEDS: Glimepiride 1 MG TAB PO SCH (09:34)
[2022-07-27] MEDS: Ezetimibe 10 MG TAB PO SCH (09:34)
[2022-07-27] MEDS: metFORMIN 500 MG TAB PO SCH ×2 (09:35→17:17)
[2022-07-27] MEDS: Apixaban 5 MG TAB PO SCH (09:35)
[2022-07-27] MEDS: Aspirin Chewable 81 MG TAB PO SCH (09:35)
[2022-07-27] MEDS: Dexamethasone 4 mg/ml Vial SLOW IVP SCH (09:35)
[2022-07-27] MEDS: REMDESIVIR 100 MG in Sodium Chloride 0.9% 250 ML 230 ML IV SCH (11:27)
[2022-07-27 13:06] LABS: #Monocytes 0.9 thou/uL (0.11-0.59); #Neutrophils 7.8 thou/uL (1.40-6.50); %Basophils 0.1 % (0.0-1.0); %Eosinophils 0.2 % (0.0-10.0); %Lymphocytes 10.4 % (21.0-51.0); %Monocytes 9.4 % (0.0-10.0); %Neutrophils 79.8 % (42.0-75.0); Hemoglobin 11.3 g/dL (14.0-18.0); Mean Corpuscular Volume 87.1 fl (78.0-98.0); Mean Platelet Volume 8.1 fL (7.4-10.4); Platelet Count 521 10x3/uL (130-400); RBC Distribution Width 15.2 % (11.5-14.5); Red Blood Cell (RBC) Count 4.17 mill/uL (4.70-6.10); White Blood Cell (WBC) Count 9.8 10x3/uL (4.8-10.8)
[2022-07-27 13:29] LABS: Bilirubin, Total 0.3 mg/dL (0.2-1.2)
[2022-07-27 13:31] LABS: Bilirubin, Direct 0.2 mg/dL (0.1-0.3)
[2022-07-27 13:36] LABS: Protein, Total 6.7 g/dL (5.8-8.1)
[2022-07-27 13:37] LABS: AST (SGOT) 20 U/L (5-34); Albumin 3.4 g/dL (3.4-4.8); Alkaline Phosphatase 108 U/L (40-110)
[2022-07-27 13:38] LABS: ALT (SGPT) 20 U/L (8-55); Sodium 135 mmol/L (136-145)
[2022-07-27 13:39] LABS: Anion Gap 20 mmol/L (10-20); BUN (Urea Nitrogen) 59 mg/dL (8.4-25.7); Carbon Dioxide 21 mmol/L (23-31); Chloride 98 mmol/L (98-107); Potassium 4.2 mmol/L (3.5-5.1)
[2022-07-27 13:40] LABS: Calc. Creatinine Clearance 43 mL/min (70-130); Calcium 8.9 mg/dL (7.8-10.44); Estimated GFR 56; Glucose 91 mg/dL (83-110)
[2022-07-27 17:51] VITALS: BP 134/59; TEMP 97.6
[2022-07-28] MEDS ORDERED: Furosemide 20 MG TAB PO SCH (09:00)
== END 2022-07-27 19:45 | disposition home or self-care (01) | DRG 177 ==
LOC: ERS 13:01 → 2NO 15:36 → ERS 17:36 → OBSVTOIN 07-24 10:36
PROVIDERS: ADMIT Family Medicine; ATTEND Internal Medicine
PROC: 8E0ZXY6 Isolation (ICD-10-PCS; principal; 2022-07-24)
PROC: 3E0333Z Introduction of Anti-inflammatory into Peripheral Vein, Percutaneous Approach (ICD-10-PCS; 2022-07-24)
PROC: XW033E5 Introduction of Remdesivir Anti-infective into Peripheral Vein, Percutaneous Approach, New Technology Group 5 (ICD-10-PCS; 2022-07-24)
DX: U07.1 COVID-19 (principal); I21.A1 Myocardial infarction type 2; I50.33 Acute on chronic diastolic (congestive) heart failure; J96.01 Acute respiratory failure with hypoxia; I13.0 Hypertensive heart and chronic kidney disease with heart failure and stage 1 through stage 4 chronic kidney disease, or unspecified chronic kidney disease; E87.1 Hypo-osmolality and hyponatremia; I51.81 Takotsubo syndrome; N18.32 Chronic kidney disease, stage 3b; E11.51 Type 2 diabetes mellitus with diabetic peripheral angiopathy without gangrene; E78.5 Hyperlipidemia, unspecified; E11.22 Type 2 diabetes mellitus with diabetic chronic kidney disease; D63.1 Anemia in chronic kidney disease; R94.31 Abnormal electrocardiogram [ECG] [EKG]; Z89.612 Acquired absence of left leg above knee; Z79.899 Other long term (current) drug therapy; Z79.01 Long term (current) use of anticoagulants; Z79.84 Long term (current) use of oral hypoglycemic drugs
CPT/HCPCS: 36415; 36416; 71045; 80048; 80053; 80076; 82553; 82607; 82728; 83540; 83550; 83735; 83880; 84443; 84484; 85025; 93005; 93010; 93306; 94640; 94760; 96374; 96376; 97139; G0378; J0248; J1100; J1815; J1940; J7050; J7620; U0003; U0005

== ENCOUNTER 2022-08-26 20:01 | Inpatient (IN) | payer MEDICARE ==
[2022-08-26] MEDS ORDERED: Acetaminophen 325 MG TAB ONE (21:32)
[2022-08-26 21:38] LABS: Bacteria/HPF None Seen HPF (None Seen); Bilirubin Negative (Negative); Blood, Urine Trace (Negative); Clarity Clear (Clear); Glucose, Urine (Dipstick) Normal (Negative); Ketone, Urine Negative (Negative); Leukocyte Negative Leu/uL (Negative); Nitrite Negative (Negative); Protein, Urine (Dipstick) 100 mg/dL (Neg-Trace); RBC/HPF 0-3 HPF (0-3); Specific Gravity, Urine 1.015 (1.002-1.036); Squamous Epithelial None Seen HPF (0-3); Urobilinogen Normal mg/dL (Less than 2); WBC/HPF None Seen HPF (0-3)
[2022-08-26 21:39] LABS: Hemoglobin 10.3 g/dL (14.0-18.0); Mean Corpuscular HGB CONC 31.8 g/dL (32.0-36.0); Mean Corpuscular Hemoglobin 27.8 pg (27.0-31.0); Mean Corpuscular Volume 87.4 fl (78.0-98.0); Mean Platelet Volume 9.3 fL (7.4-10.4); Platelet Count 214 10x3/uL (130-400); RBC Distribution Width 19.2 % (11.5-14.5); Red Blood Cell (RBC) Count 3.71 mill/uL (4.70-6.10); White Blood Cell (WBC) Count 22.9 10x3/uL (4.8-10.8)
[2022-08-26 21:51] LABS: INR-International Normal Ratio 1.1; Prothrombin Time 14.3 sec (12.0-14.7)
[2022-08-26 21:54] LABS: Band 11 % (5-11); MDiff Complete? YES; Monocytes 1 % (0-10); Neutrophil 88 % (42-75); Vacuoles SLIGHT
[2022-08-26 21:57] LABS: ALT (SGPT) Less than 7 U/L (8-55); AST (SGOT) 16 U/L (5-34); Albumin 3.6 g/dL (3.4-4.8); Alkaline Phosphatase 110 U/L (40-110); Anion Gap 14 mmol/L (10-20); BUN (Urea Nitrogen) 31 mg/dL (8.4-25.7); Bilirubin, Total 0.3 mg/dL (0.2-1.2); Calc. Creatinine Clearance 0 mL/min (70-130); Calcium 8.7 mg/dL (7.8-10.44); Carbon Dioxide 21 mmol/L (23-31); Chloride 103 mmol/L (98-107); Estimated GFR 59; Globulin 2.6 g/dL (2.4-3.5); Glucose 160 mg/dL (83-110); Lipase 64 U/L (8-78); Potassium 5.3 mmol/L (3.5-5.1); Protein, Total 6.2 g/dL (5.8-8.1); Sodium 133 mmol/L (136-145)
[2022-08-26] MEDS ORDERED: Vancomycin 1 GM/200 ML (FROZEN) BAG ONE (22:14)
[2022-08-26] MEDS ORDERED: Piperacillin/Tazobactam 4.5 GM VIAL ONE (22:14)
[2022-08-26 22:31] LABS: CKMB 2.8 ng/mL (0-6.6)
[2022-08-26] MEDS ORDERED: NOREPINEPHRINE 8 MG/250 ML-D5W 250 ML ONE (23:58)
[2022-08-27 00:16] LABS: Actual Bicarbonate (HCO3v) 19 mEq/L (22-28); Analyzer IN Cardio ER; Base Excess -6.9 mEq/L (-2.0 to +3.0); Chloride (VBG) 103 mmol/L (98-106); Hemoglobin (Hb) 8.5 g/dL (12.6-17.4); Potassium (VBG) 4.78 mmol/L (3.70-5.30); Sodium 129.1 mmol/L (133-146); pH (venous) 7.32 (7.32-7.43)
[2022-08-27] MEDS ORDERED: Ketamine 50 MG/ML (10ML VIAL) ONE (00:36)
[2022-08-27 00:46] LABS: Lactic Acid 3.1 mmol/L (0.5-2.2)
[2022-08-27] MEDS ORDERED: Acetaminophen 325 MG TAB PO PRN ×2 (00:55→02:30)
[2022-08-27] MEDS ORDERED: Dextrose 5% in Water 1,000 ML IV PRN (00:55)
[2022-08-27] MEDS ORDERED: Dextrose 50% Abboject 50 ML SYRINGE SLOW IVP PRN (00:55)
[2022-08-27] MEDS ORDERED: HumaLOG 300 UNITS/3 ML VIAL SC PRN (00:55)
[2022-08-27] MEDS ORDERED: Acetaminophen 650 MG Suppository PR PRN (00:55)
[2022-08-27] MEDS ORDERED: Ondansetron PF 4 MG/2 ML Vial IVP PRN ×2 (00:55→02:30)
[2022-08-27] MEDS ORDERED: Ondansetron ODT 4 MG TAB PO PRN (00:55)
[2022-08-27] MEDS ORDERED: NOREPINEPHRINE 8 MG/250 ML-D5W 250 ML IVPB PRN (02:30)
[2022-08-27] MEDS ORDERED: Sodium Chloride 0.9% 1,000 ML IV SCH ×2 (02:30→02:42)
[2022-08-27] MEDS ORDERED: Ondansetron ODT 4 MG TAB SL PRN (02:30)
[2022-08-27] MEDS ORDERED: Piperacillin/Tazobactam 3.375 GM in Sodium Chloride 0.9% 100 ML IVPB SCH ×2 (03:00→07:00)
[2022-08-27 03:29] VITALS: BMI 23.6
[2022-08-27 04:30] LABS: Lactic Acid 2.5 mmol/L (0.5-2.2)
[2022-08-27 04:32] LABS: Anion Gap 14 mmol/L (10-20); BUN (Urea Nitrogen) 28 mg/dL (8.4-25.7); Calc. Creatinine Clearance 49 mL/min (70-130); Calcium 8.1 mg/dL (7.8-10.44); Carbon Dioxide 17 mmol/L (23-31); Chloride 105 mmol/L (98-107); Estimated GFR 61; Glucose 235 mg/dL (83-110); Potassium 4.7 mmol/L (3.5-5.1); Sodium 131 mmol/L (136-145)
[2022-08-27 04:49] LABS: Band 27 % (5-11); Hemoglobin 8.6 g/dL (14.0-18.0); Lymphocytes 4 % (21-51); MDiff Complete? YES; Mean Corpuscular HGB CONC 31.9 g/dL (32.0-36.0); Mean Corpuscular Hemoglobin 27.8 pg (27.0-31.0); Mean Corpuscular Volume 87.2 fl (78.0-98.0); Mean Platelet Volume 9.6 fL (7.4-10.4); Monocytes 3 % (0-10); Neutrophil 66 % (42-75); Platelet Count 195 10x3/uL (130-400); RBC Distribution Width 18.9 % (11.5-14.5); Red Blood Cell (RBC) Count 3.09 mill/uL (4.70-6.10)
[2022-08-27 05:00] LABS: Troponin I 1.918 ng/mL (< 0.028)
[2022-08-27] MEDS: HumaLOG 300 UNITS/3 ML VIAL SC PRN ×2 (06:19→11:10)
[2022-08-27] MEDS ORDERED: Vancomycin HCl 500 MG in Sodium Chloride 0.9% 100 ML IVPB SCH (07:15)
[2022-08-27] MEDS: Piperacillin/Tazobactam 3.375 GM in Sodium Chloride 0.9% 100 ML IVPB SCH ×3 (07:26→23:12)
[2022-08-27] MEDS: Famotidine 20 MG TAB PO SCH (08:15)
[2022-08-27] MEDS: Furosemide 20 MG TAB PO SCH (11:58)
[2022-08-27] MEDS: Apixaban 5 MG TAB PO SCH (19:44)
[2022-08-28] MEDS ORDERED: VANCOMYCIN 1.25 GM/250 ML BAG 1.25 GM in Premix Bag 1 BAG IVPB SCH (06:00)
[2022-08-28] MEDS: Furosemide 20 MG TAB PO SCH ×2 (08:01→14:48)
[2022-08-28] MEDS: Piperacillin/Tazobactam 3.375 GM in Sodium Chloride 0.9% 100 ML IVPB SCH (08:01)
[2022-08-28] MEDS: Famotidine 20 MG TAB PO SCH (08:01)
[2022-08-28] MEDS: Apixaban 5 MG TAB PO SCH ×2 (08:01→21:26)
[2022-08-28 08:06] LABS: #Eosinphils 0.2 thou/uL (0.0-0.7); #Lymphocytes 0.7 thou/uL (1.20-3.40); #Monocytes 0.9 thou/uL (0.11-0.59); #Neutrophils 11.5 thou/uL (1.40-6.50); %Eosinophils 1.5 % (0.0-10.0); %Lymphocytes 5.5 % (21.0-51.0); %Monocytes 6.6 % (0.0-10.0); %Neutrophils 86.4 % (42.0-75.0); Hemoglobin 8.5 g/dL (14.0-18.0); Mean Corpuscular Hemoglobin 28.3 pg (27.0-31.0); Mean Corpuscular Volume 88.3 fl (78.0-98.0); Mean Platelet Volume 9.1 fL (7.4-10.4); Platelet Count 148 10x3/uL (130-400); Red Blood Cell (RBC) Count 2.99 mill/uL (4.70-6.10); White Blood Cell (WBC) Count 13.3 10x3/uL (4.8-10.8)
[2022-08-28 08:33] LABS: Anion Gap 9 mmol/L (10-20); BUN (Urea Nitrogen) 21 mg/dL (8.4-25.7); Calc. Creatinine Clearance 54 mL/min (70-130); Calcium 8.4 mg/dL (7.8-10.44); Carbon Dioxide 21 mmol/L (23-31); Chloride 107 mmol/L (98-107); Estimated GFR 68; Glucose 90 mg/dL (83-110); Potassium 4.3 mmol/L (3.5-5.1); Sodium 133 mmol/L (136-145)
[2022-08-28] MEDS ORDERED: Iopamidol 370 76% 100 ML VIAL ONE (10:25)
[2022-08-28] MEDS: cefTRIAXone\\ROCEPHIN 2 GM in Sodium Chloride 0.9% 100 ML IVPB SCH (14:48)
[2022-08-29] MEDS: Furosemide 20 MG TAB PO SCH ×2 (08:21→14:29)
[2022-08-29] MEDS: Famotidine 20 MG TAB PO SCH (08:21)
[2022-08-29] MEDS: Apixaban 5 MG TAB PO SCH (08:21)
[2022-08-29 09:05] VITALS: TEMP 97.5
[2022-08-29] MEDS: cefTRIAXone\\ROCEPHIN 2 GM in Sodium Chloride 0.9% 100 ML IVPB SCH (14:26)
[2022-08-29 14:31] VITALS: BP 168/83
[2022-08-29] MEDS ORDERED: Atorvastatin Calcium 40 MG TAB PO SCH (21:00)
[2022-08-30] MEDS ORDERED: FLU VACC QS2022-23(65YR UP)/PF 240 MCG/0.7 ML SYRINGE IM ONE (09:00)
== END 2022-08-29 15:35 | disposition home or self-care (01) | DRG 871 ==
LOC: ERS 20:01 → CCU 08-27 00:38 → MSONC 08-27 13:51
PROVIDERS: ADMIT Student in an Organized Health Care Education/Training Program; ATTEND Family Medicine
PROC: 3E04329 Introduction of Other Anti-infective into Central Vein, Percutaneous Approach (ICD-10-PCS; principal; 2022-08-27)
PROC: 3E043XZ Introduction of Vasopressor into Central Vein, Percutaneous Approach (ICD-10-PCS; 2022-08-27)
PROC: 8E0ZXY6 Isolation (ICD-10-PCS; 2022-08-27)
PROC: 02HV33Z Insertion of Infusion Device into Superior Vena Cava, Percutaneous Approach (ICD-10-PCS; 2022-08-27)
PROC: B548ZZA Ultrasonography of Superior Vena Cava, Guidance (ICD-10-PCS; 2022-08-27)
DX: A40.8 Other streptococcal sepsis (principal); R65.21 Severe sepsis with septic shock; U07.1 COVID-19; L03.115 Cellulitis of right lower limb; L03.116 Cellulitis of left lower limb; I50.22 Chronic systolic (congestive) heart failure; T82.858A Stenosis of other vascular prosthetic devices, implants and grafts, initial encounter; I24.8 Other forms of acute ischemic heart disease; I13.0 Hypertensive heart and chronic kidney disease with heart failure and stage 1 through stage 4 chronic kidney disease, or unspecified chronic kidney disease; D64.9 Anemia, unspecified; Y83.8 Other surgical procedures as the cause of abnormal reaction of the patient, or of later complication, without mention of misadventure at the time of the procedure; I25.10 Atherosclerotic heart disease of native coronary artery without angina pectoris; K44.9 Diaphragmatic hernia without obstruction or gangrene; M47.816 Spondylosis without myelopathy or radiculopathy, lumbar region; E78.5 Hyperlipidemia, unspecified; E11.621 Type 2 diabetes mellitus with foot ulcer; L97.509 Non-pressure chronic ulcer of other part of unspecified foot with unspecified severity; E11.22 Type 2 diabetes mellitus with diabetic chronic kidney disease; N18.2 Chronic kidney disease, stage 2 (mild); E11.51 Type 2 diabetes mellitus with diabetic peripheral angiopathy without gangrene; Z86.73 Personal history of transient ischemic attack (TIA), and cerebral infarction without residual deficits; Z89.612 Acquired absence of left leg above knee; Z88.8 Allergy status to other drugs, medicaments and biological substances; Z79.01 Long term (current) use of anticoagulants; Z79.899 Other long term (current) drug therapy; Z79.82 Long term (current) use of aspirin; Z79.84 Long term (current) use of oral hypoglycemic drugs; Z87.891 Personal history of nicotine dependence
CPT/HCPCS: 36415; 36416; 71045; 74177; 80048; 80053; 81003; 81015; 82553; 82805; 83605; 83690; 84484; 85025; 85610; 85730; 86140; 87040; 87077; 87086; 87149; 87186; 87804; 93005; 97139; J0696; J1815; J2543; J3370; J3370-JW; J3490; J7050; Q9967; U0003; U0005

== ENCOUNTER 2023-08-14 13:28 | Observation (INO) | payer MEDICARE ==
[~2023-08-14 13:28] MED LIST changes: -Iopamidol-370 76% 500 ML 1 ML ONE; +Iopamidol-370 76% 500 ML MDV (1 ML CHARGE) ONE
[2023-08-14 14:19] LABS: #Basophils 0.1 thou/uL (0.0-0.2); #Eosinphils 0.3 thou/uL (0.0-0.7); #Monocytes 1.1 thou/uL (0.11-0.59); #Neutrophils 7.8 thou/uL (1.40-6.50); %Basophils 1.1 % (0.0-1.0); %Eosinophils 2.9 % (0.0-10.0); %Lymphocytes 13.8 % (21.0-51.0); %Monocytes 9.8 % (0.0-10.0); %Neutrophils 72.1 % (42.0-75.0); Hematocrit 42.6 % (42.0-52.0); Hemoglobin 13.6 g/dL (14.0-18.0); Mean Corpuscular HGB CONC 31.9 g/dL (32.0-36.0); Mean Corpuscular Volume 93.8 fl (78.0-98.0); Mean Platelet Volume 10.6 fL (7.4-10.4); Platelet Count 258 10x3/uL (130-400); RBC Distribution Width 16.1 % (11.5-14.5); Red Blood Cell (RBC) Count 4.54 mill/uL (4.70-6.10); White Blood Cell (WBC) Count 10.9 10x3/uL (4.8-10.8)
[2023-08-14 14:45] LABS: ALT (SGPT) 11 U/L (8-55); AST (SGOT) 14 U/L (5-34); Albumin 3.7 g/dL (3.4-4.8); Alkaline Phosphatase 85 U/L (40-110); Anion Gap 16 mmol/L (10-20); BUN (Urea Nitrogen) 41 mg/dL (8.4-25.7); Bilirubin, Total 0.4 mg/dL (0.2-1.2); Calc. Creatinine Clearance 0 mL/min (70-130); Calcium 9.2 mg/dL (7.8-10.44); Carbon Dioxide 22 mmol/L (23-31); Chloride 104 mmol/L (98-107); Estimated GFR 46; Glucose 100 mg/dL (83-110); Magnesium 1.6 mg/dL (1.6-2.6); Potassium 5.1 mmol/L (3.5-5.1); Protein, Total 6.7 g/dL (5.8-8.1); Sodium 137 mmol/L (136-145)
[2023-08-14 14:46] LABS: Troponin I 0.098 ng/mL (< 0.028)
[2023-08-14] MEDS ORDERED: Aspirin Chewable 81 MG TAB ONE (16:20)
[2023-08-14] MEDS ORDERED: LORazepam 2 MG/ML SYR.(CARPUJECT) ONE (16:21)
[2023-08-14] MEDS ORDERED: Glucagon 1 MG/ML KIT IM PRN (17:01)
[2023-08-14] MEDS ORDERED: HumaLOG 300 UNITS/3 ML VIAL SC PRN ×2 (17:01)
[2023-08-14] MEDS ORDERED: Dextrose 5% in Water 1,000 ML IV PRN (17:01)
[2023-08-14] MEDS ORDERED: Dextrose 50% Abboject 50 ML SYRINGE SLOW IVP PRN (17:01)
[2023-08-14] MEDS ORDERED: Acetaminophen 325 MG TAB PO PRN (17:01)
[2023-08-14] MEDS ORDERED: Ondansetron PF 4 MG/2 ML Vial IVP PRN (17:01)
[2023-08-14] MEDS ORDERED: Nitroglycerin 0.4 MG TAB (25 Tab Bottle) SL PRN (17:05)
[2023-08-14 18:44] VITALS: BMI 24.4
[2023-08-14 20:20] LABS: Troponin I 0.083 ng/mL (< 0.028)
[2023-08-14] MEDS: metFORMIN 500 MG TAB PO SCH (20:59)
[2023-08-14] MEDS ORDERED: Atorvastatin Calcium 40 MG TAB PO SCH (21:00)
[2023-08-14] MEDS: Sacubitril 24MG/Valsartan 26 MG TAB PO SCH (21:00)
[2023-08-14] MEDS: Apixaban 2.5 MG TAB PO SCH (21:01)
[2023-08-14 23:53] LABS: Troponin I 0.077 ng/mL (< 0.028)
[2023-08-14] MEDS ORDERED: traZODone HCl 50 MG TAB PO PRN (23:54)
[2023-08-15] MEDS ORDERED: Ezetimibe 10 MG TAB PO SCH (09:00)
[2023-08-15] MEDS ORDERED: Furosemide 40 MG TAB PO SCH (09:00)
[2023-08-15] MEDS ORDERED: Aspirin Chewable 81 MG TAB PO SCH (09:00)
[2023-08-15] MEDS: metFORMIN 500 MG TAB PO SCH (10:38)
[2023-08-15] MEDS: Apixaban 2.5 MG TAB PO SCH (10:39)
[2023-08-15] MEDS: Sacubitril 24MG/Valsartan 26 MG TAB PO SCH (10:39)
[2023-08-15 10:44] VITALS: BP 143/63; TEMP 97.8
[2023-08-16] MEDS ORDERED: Ferrous Sulfate 325 MG TAB PO SCH (08:00)
[2023-08-17] MEDS ORDERED: FLU VACC QS2023(65UP)/MF59C/PF 60 MCG/0.5 ML SYRINGE IM ONE (09:00)
== END 2023-08-15 11:50 | disposition home or self-care (01) ==
LOC: ERS 13:28 → 2NO 16:53
PROVIDERS: ADMIT Internal Medicine; ATTEND Internal Medicine
DX: I48.91 Unspecified atrial fibrillation (principal); I13.0 Hypertensive heart and chronic kidney disease with heart failure and stage 1 through stage 4 chronic kidney disease, or unspecified chronic kidney disease; I50.22 Chronic systolic (congestive) heart failure; E11.51 Type 2 diabetes mellitus with diabetic peripheral angiopathy without gangrene; E11.22 Type 2 diabetes mellitus with diabetic chronic kidney disease; N18.2 Chronic kidney disease, stage 2 (mild); E78.5 Hyperlipidemia, unspecified; Z89.612 Acquired absence of left leg above knee; Z88.8 Allergy status to other drugs, medicaments and biological substances; Z79.01 Long term (current) use of anticoagulants; Z79.899 Other long term (current) drug therapy
CPT/HCPCS: 71045; 71275; 74174; 80053; 82962 ×2; 83735; 83880; 84484 ×2; 85025; 93005; J2060; 36415; 36416; 96360; G0378; Q9967

== ENCOUNTER 2023-08-17 20:00 | Emergency (ER) | payer MEDICARE ==
[2023-08-17] MEDS ORDERED: LORazepam 2 MG/ML SYR.(CARPUJECT) ONE (21:30)
== END 2023-08-17 22:21 | disposition home or self-care (01) ==
LOC: ERS 20:00
DX: R25.2 Cramp and spasm (principal); I11.0 Hypertensive heart disease with heart failure; I50.9 Heart failure, unspecified; E11.51 Type 2 diabetes mellitus with diabetic peripheral angiopathy without gangrene; Z79.84 Long term (current) use of oral hypoglycemic drugs; Z86.73 Personal history of transient ischemic attack (TIA), and cerebral infarction without residual deficits; Z87.891 Personal history of nicotine dependence; Z79.899 Other long term (current) drug therapy
CPT/HCPCS: 96374; J2060

== ENCOUNTER 2023-09-03 22:40 | Inpatient (IN) | payer MEDICARE ==
[2023-09-04 00:58] VITALS: BMI 22.5
[2023-09-04] MEDS ORDERED: Acetaminophen 325 MG TAB PO PRN (01:32)
[2023-09-04] MEDS ORDERED: Dextrose 5% in Water 1,000 ML IV PRN (01:32)
[2023-09-04] MEDS ORDERED: Ondansetron PF 4 MG/2 ML Vial IVP PRN (01:32)
[2023-09-04] MEDS ORDERED: Dextrose 50% Abboject 50 ML SYRINGE SLOW IVP PRN (01:32)
[2023-09-04] MEDS ORDERED: Ondansetron ODT 4 MG TAB PO PRN (01:32)
[2023-09-04] MEDS ORDERED: Glucagon 1 MG/ML KIT IM PRN (01:32)
[2023-09-04] MEDS ORDERED: Acetaminophen 650 MG Suppository PR PRN (01:32)
[2023-09-04] MEDS ORDERED: Ipratropium/Albuterol 3 ML NEB NEB PRN (04:00)
[2023-09-04] MEDS ORDERED: Furosemide 40 MG (4 mL) VIAL SLOW IVP SCH (04:30)
[2023-09-04 04:43] LABS: #Basophils 0.1 thou/uL (0.0-0.2); #Eosinphils 0.1 thou/uL (0.0-0.7); #Monocytes 1.1 thou/uL (0.11-0.59); #Neutrophils 16.2 thou/uL (1.40-6.50); %Basophils 0.5 % (0.0-1.0); %Eosinophils 0.3 % (0.0-10.0); %Lymphocytes 4.4 % (21.0-51.0); %Monocytes 5.8 % (0.0-10.0); %Neutrophils 88.6 % (42.0-75.0); Hematocrit 41.2 % (42.0-52.0); Hemoglobin 13.2 g/dL (14.0-18.0); Mean Corpuscular Hemoglobin 30.1 pg (27.0-31.0); Mean Corpuscular Volume 94.1 fl (78.0-98.0); Platelet Count 198 10x3/uL (130-400); RBC Distribution Width 17.2 % (11.5-14.5); Red Blood Cell (RBC) Count 4.38 mill/uL (4.70-6.10); White Blood Cell (WBC) Count 18.3 10x3/uL (4.8-10.8)
[2023-09-04 05:10] LABS: Anion Gap 17 mmol/L (10-20); BUN (Urea Nitrogen) 52 mg/dL (8.4-25.7); Calc. Creatinine Clearance 33 mL/min (70-130); Calcium 8.4 mg/dL (7.8-10.44); Carbon Dioxide 15 mmol/L (23-31); Chloride 104 mmol/L (98-107); Estimated GFR 41; Glucose 97 mg/dL (83-110); Potassium 5.3 mmol/L (3.5-5.1); Sodium 131 mmol/L (136-145)
[2023-09-04 06:19] LABS: Magnesium 2.2 mg/dL (1.6-2.6)
[2023-09-04] MEDS ORDERED: Insulin Regular 300 UNITS/3 ML VIAL IVP SCH (08:15)
[2023-09-04] MEDS ORDERED: Ferrous Sulfate 325 MG TAB PO SCH (08:15)
[2023-09-04] MEDS ORDERED: Dextrose 50% Abboject 50 ML SYRINGE SLOW IVP SCH (08:15)
[2023-09-04] MEDS: Famotidine 20 MG TAB PO SCH (08:47)
[2023-09-04] MEDS: Ezetimibe 10 MG TAB PO SCH (08:47)
[2023-09-04] MEDS: Apixaban 2.5 MG TAB PO SCH ×2 (08:47→22:14)
[2023-09-04] MEDS ORDERED: FLU VACC QS2023(65UP)/MF59C/PF 60 MCG/0.5 ML SYRINGE IM ONE (09:00)
[2023-09-04] MEDS ORDERED: Piperacillin/Tazobactam 3.375 GM in Sodium Chloride 0.9% 100 ML IVPB SCH (09:00)
[2023-09-04] MEDS: Piperacillin/Tazobactam 3.375 GM in Sodium Chloride 0.9% 100 ML IVPB SCH ×2 (12:36→22:14)
[2023-09-04 13:49] LABS: Lactic Acid 1.9 mmol/L (0.5-2.2)
[2023-09-04] MEDS: Sacubitril 24MG/Valsartan 26 MG TAB PO SCH (22:14)
[2023-09-05] MEDS: Piperacillin/Tazobactam 3.375 GM in Sodium Chloride 0.9% 100 ML IVPB SCH ×3 (06:00→20:44)
[2023-09-05 06:02] LABS: Hematocrit 41.5 % (42.0-52.0); Hemoglobin 13.8 g/dL (14.0-18.0); Mean Corpuscular HGB CONC 33.3 g/dL (32.0-36.0); Mean Corpuscular Hemoglobin 30.3 pg (27.0-31.0); Mean Corpuscular Volume 91.2 fl (78.0-98.0); Mean Platelet Volume 10.9 fL (7.4-10.4); Platelet Count 186 10x3/uL (130-400); RBC Distribution Width 16.9 % (11.5-14.5); Red Blood Cell (RBC) Count 4.55 mill/uL (4.70-6.10); White Blood Cell (WBC) Count 12.6 10x3/uL (4.8-10.8)
[2023-09-05 06:24] LABS: Anion Gap 15 mmol/L (10-20); BUN (Urea Nitrogen) 49 mg/dL (8.4-25.7); Calc. Creatinine Clearance 31 mL/min (70-130); Calcium 9.2 mg/dL (7.8-10.44); Carbon Dioxide 21 mmol/L (23-31); Chloride 104 mmol/L (98-107); Estimated GFR 37; Glucose 102 mg/dL (83-110); Sodium 135 mmol/L (136-145)
[2023-09-05] MEDS ORDERED: Furosemide 40 MG (4 mL) VIAL SLOW IVP SCH (09:00)
[2023-09-05] MEDS: Famotidine 20 MG TAB PO SCH (10:00)
[2023-09-05] MEDS: Ezetimibe 10 MG TAB PO SCH (10:01)
[2023-09-05] MEDS: Furosemide 20 MG TAB PO SCH (10:01)
[2023-09-05] MEDS: Apixaban 2.5 MG TAB PO SCH ×2 (10:01→20:45)
[2023-09-05] MEDS: Sacubitril 24MG/Valsartan 26 MG TAB PO SCH ×2 (10:01→20:45)
[2023-09-05] MEDS: Ferrous Sulfate 325 MG TAB PO SCH (10:01)
[2023-09-05] MEDS ORDERED: Ipratropium/Albuterol 3 ML NEB IPPB PRN (13:00)
[2023-09-05] MEDS: methylPREDNISolone Sod Succ 40 MG VIAL IVP SCH ×2 (15:34→20:45)
[2023-09-06] MEDS: Piperacillin/Tazobactam 3.375 GM in Sodium Chloride 0.9% 100 ML IVPB SCH ×3 (05:42→20:06)
[2023-09-06] MEDS: methylPREDNISolone Sod Succ 40 MG VIAL IVP SCH ×3 (05:42→21:39)
[2023-09-06] MEDS: Furosemide 20 MG TAB PO SCH (11:30)
[2023-09-06] MEDS: Famotidine 20 MG TAB PO SCH (11:31)
[2023-09-06] MEDS: Sacubitril 24MG/Valsartan 26 MG TAB PO SCH ×2 (11:32→20:06)
[2023-09-06] MEDS: Apixaban 2.5 MG TAB PO SCH ×2 (11:33→20:06)
[2023-09-06] MEDS: Ferrous Sulfate 325 MG TAB PO SCH (11:33)
[2023-09-06] MEDS: Ezetimibe 10 MG TAB PO SCH (11:33)
[2023-09-06] MEDS: Ipratropium/Albuterol 3 ML NEB NEB SCH ×2 (15:20→19:52)
[2023-09-06] MEDS: HumaLOG 300 UNITS/3 ML VIAL SC PRN (21:39)
[2023-09-07] MEDS: Ipratropium/Albuterol 3 ML NEB NEB SCH ×4 (01:35→18:34)
[2023-09-07 04:22] LABS: Anion Gap 18 mmol/L (10-20); BUN (Urea Nitrogen) 67 mg/dL (8.4-25.7); Calc. Creatinine Clearance 31 mL/min (70-130); Carbon Dioxide 16 mmol/L (23-31); Chloride 102 mmol/L (98-107); Estimated GFR 38; Glucose 203 mg/dL (83-110); Magnesium 2.1 mg/dL (1.6-2.6); Potassium 4.8 mmol/L (3.5-5.1); Sodium 131 mmol/L (136-145)
[2023-09-07] MEDS: Piperacillin/Tazobactam 3.375 GM in Sodium Chloride 0.9% 100 ML IVPB SCH ×3 (06:08→20:07)
[2023-09-07] MEDS: Ferrous Sulfate 325 MG TAB PO SCH (08:44)
[2023-09-07] MEDS: Famotidine 20 MG TAB PO SCH (08:44)
[2023-09-07] MEDS: predniSONE 20 MG TAB PO SCH (08:44)
[2023-09-07] MEDS: Furosemide 20 MG TAB PO SCH (08:45)
[2023-09-07] MEDS: Sacubitril 24MG/Valsartan 26 MG TAB PO SCH ×2 (08:45→20:06)
[2023-09-07] MEDS: Ezetimibe 10 MG TAB PO SCH (08:45)
[2023-09-07] MEDS: Apixaban 2.5 MG TAB PO SCH ×2 (08:45→20:06)
[2023-09-07] MEDS: HumaLOG 300 UNITS/3 ML VIAL SC PRN (20:57)
[2023-09-08] MEDS: Ipratropium/Albuterol 3 ML NEB NEB SCH ×5 (00:20→23:48)
[2023-09-08] MEDS ORDERED: AFRIN NASAL MIST 15 ML BOT NS SCH (00:30)
[2023-09-08] MEDS ORDERED: Oxymetazoline HCl 0.05% (30 ML BOT) NS SCH (00:30)
[2023-09-08] MEDS: Piperacillin/Tazobactam 3.375 GM in Sodium Chloride 0.9% 100 ML IVPB SCH ×2 (04:50→13:24)
[2023-09-08] MEDS: Furosemide 20 MG TAB PO SCH (09:37)
[2023-09-08] MEDS: Sacubitril 24MG/Valsartan 26 MG TAB PO SCH ×2 (09:37→19:28)
[2023-09-08] MEDS: predniSONE 20 MG TAB PO SCH (09:37)
[2023-09-08] MEDS: Ferrous Sulfate 325 MG TAB PO SCH (09:37)
[2023-09-08] MEDS: Ezetimibe 10 MG TAB PO SCH (09:37)
[2023-09-08] MEDS: Famotidine 20 MG TAB PO SCH (09:38)
[2023-09-08] MEDS: Apixaban 2.5 MG TAB PO SCH ×2 (09:38→19:29)
[2023-09-08 17:20] LABS: #Monocytes 0.4 thou/uL (0.11-0.59); #Neutrophils 11.8 thou/uL (1.40-6.50); %Basophils 0.1 % (0.0-1.0); %Lymphocytes 3.4 % (21.0-51.0); %Monocytes 3.4 % (0.0-10.0); %Neutrophils 92.8 % (42.0-75.0); Hematocrit 39.8 % (42.0-52.0); Hemoglobin 13.5 g/dL (14.0-18.0); Mean Corpuscular HGB CONC 33.9 g/dL (32.0-36.0); Mean Corpuscular Hemoglobin 30.5 pg (27.0-31.0); Mean Platelet Volume 11.3 fL (7.4-10.4); Platelet Count 288 10x3/uL (130-400); RBC Distribution Width 16.7 % (11.5-14.5); Red Blood Cell (RBC) Count 4.42 mill/uL (4.70-6.10); White Blood Cell (WBC) Count 12.7 10x3/uL (4.8-10.8)
[2023-09-08] MEDS: HumaLOG 300 UNITS/3 ML VIAL SC PRN ×2 (17:39→21:16)
[2023-09-09] MEDS: Ipratropium/Albuterol 3 ML NEB NEB SCH ×2 (07:16→14:34)
[2023-09-09] MEDS: Apixaban 2.5 MG TAB PO SCH (09:25)
[2023-09-09] MEDS: Sacubitril 24MG/Valsartan 26 MG TAB PO SCH (09:25)
[2023-09-09] MEDS: predniSONE 20 MG TAB PO SCH (09:26)
[2023-09-09] MEDS: Furosemide 20 MG TAB PO SCH (09:26)
[2023-09-09] MEDS: Ferrous Sulfate 325 MG TAB PO SCH (09:27)
[2023-09-09] MEDS: Ezetimibe 10 MG TAB PO SCH (09:27)
[2023-09-09] MEDS: Famotidine 20 MG TAB PO SCH (09:27)
[2023-09-09] MEDS: HumaLOG 300 UNITS/3 ML VIAL SC PRN (11:36)
[2023-09-09] MEDS ORDERED: Ipratropium/Albuterol 3 ML NEB NEB PRN (15:00)
[2023-09-09 15:54] VITALS: BP 160/67; TEMP 97.4
== END 2023-09-09 16:15 | disposition home or self-care (01) | DRG 191 ==
LOC: 2NO 09-04 00:38 → OBSVTOIN 09-05 12:08
PROVIDERS: ADMIT Student in an Organized Health Care Education/Training Program; ATTEND Internal Medicine
DX: J44.1 Chronic obstructive pulmonary disease with (acute) exacerbation (principal); E87.1 Hypo-osmolality and hyponatremia; E87.20 Acidosis, unspecified; I42.9 Cardiomyopathy, unspecified; I50.42 Chronic combined systolic (congestive) and diastolic (congestive) heart failure; E11.9 Type 2 diabetes mellitus without complications; I11.0 Hypertensive heart disease with heart failure; E11.51 Type 2 diabetes mellitus with diabetic peripheral angiopathy without gangrene; E78.5 Hyperlipidemia, unspecified; J43.9 Emphysema, unspecified; R06.03 Acute respiratory distress; E87.5 Hyperkalemia; I35.0 Nonrheumatic aortic (valve) stenosis; I49.5 Sick sinus syndrome; Z86.73 Personal history of transient ischemic attack (TIA), and cerebral infarction without residual deficits; Z89.612 Acquired absence of left leg above knee; Z88.8 Allergy status to other drugs, medicaments and biological substances; Z79.01 Long term (current) use of anticoagulants; Z79.899 Other long term (current) drug therapy; Z79.84 Long term (current) use of oral hypoglycemic drugs; Z98.890 Other specified postprocedural states
CPT/HCPCS: 36415; 36416; 71045; 71275; 80048; 80053; 81001; 83605; 83735; 83880; 84145; 84484; 85025; 85027; 87040; 93005; 93306; 94640; 96374; 96375; J0692; J1815; J1940; J2543; J2920; J3370; J3490; J7512; J7620; J7999; Q9967

== ENCOUNTER 2023-09-10 13:55 | Inpatient (IN) | payer MEDICARE ==
[2023-09-10 14:49] LABS: #Eosinphils 0.2 thou/uL (0.0-0.7); #Monocytes 1.4 thou/uL (0.11-0.59); #Neutrophils 8.5 thou/uL (1.40-6.50); %Basophils 0.2 % (0.0-1.0); %Eosinophils 1.4 % (0.0-10.0); %Lymphocytes 17.1 % (21.0-51.0); %Monocytes 11.3 % (0.0-10.0); %Neutrophils 68.5 % (42.0-75.0); Hematocrit 37.5 % (42.0-52.0); Hemoglobin 12.7 g/dL (14.0-18.0); Mean Corpuscular HGB CONC 33.9 g/dL (32.0-36.0); Mean Corpuscular Volume 91.5 fl (78.0-98.0); Mean Platelet Volume 10.9 fL (7.4-10.4); Platelet Count 275 10x3/uL (130-400); RBC Distribution Width 16.6 % (11.5-14.5); White Blood Cell (WBC) Count 12.4 10x3/uL (4.8-10.8)
[2023-09-10 15:13] LABS: ALT (SGPT) 22 U/L (8-55); AST (SGOT) 16 U/L (5-34); Albumin 3.6 g/dL (3.4-4.8); Alkaline Phosphatase 62 U/L (40-110); Anion Gap 12 mmol/L (10-20); BUN (Urea Nitrogen) 96 mg/dL (8.4-25.7); Bilirubin, Total 0.4 mg/dL (0.2-1.2); Calc. Creatinine Clearance 0 mL/min (70-130); Calcium 9.1 mg/dL (7.8-10.44); Carbon Dioxide 20 mmol/L (23-31); Chloride 102 mmol/L (98-107); Estimated GFR 39; Globulin 2.7 g/dL (2.4-3.5); Glucose 166 mg/dL (83-110); Protein, Total 6.3 g/dL (5.8-8.1); Sodium 129 mmol/L (136-145)
[2023-09-10] MEDS ORDERED: Pantoprazole 40 MG VIAL ONE (16:19)
[2023-09-10] MEDS ORDERED: Ondansetron PF 4 MG/2 ML Vial IVP PRN (18:19)
[2023-09-10] MEDS ORDERED: Acetaminophen 650 MG Suppository PR PRN (18:19)
[2023-09-10] MEDS ORDERED: Ondansetron ODT 4 MG TAB PO PRN (18:19)
[2023-09-10] MEDS ORDERED: Dextrose 5% in Water 1,000 ML IV PRN (18:23)
[2023-09-10] MEDS ORDERED: Dextrose 50% Abboject 50 ML SYRINGE SLOW IVP PRN (18:23)
[2023-09-10] MEDS ORDERED: Glucagon 1 MG/ML KIT IM PRN (18:23)
[2023-09-10] MEDS ORDERED: Insulin Regular 300 UNITS/3 ML VIAL SC PRN (18:23)
[2023-09-10] MEDS ORDERED: Ipratropium/Albuterol 3 ML NEB NEB PRN (19:05)
[2023-09-10] MEDS: Pantoprazole 40 MG VIAL IVP SCH (19:39)
[2023-09-10 22:08] LABS: Hemoglobin 12.2 g/dL (14.0-18.0)
[2023-09-10] MEDS: Sodium Chloride 0.9% 1,000 ML IV SCH (23:10)
[2023-09-11 05:23] LABS: #Eosinphils 0.3 thou/uL (0.0-0.7); #Monocytes 1.2 thou/uL (0.11-0.59); #Neutrophils 8.3 thou/uL (1.40-6.50); %Basophils 0.3 % (0.0-1.0); %Eosinophils 2.3 % (0.0-10.0); %Neutrophils 69.7 % (42.0-75.0); Hematocrit 37.3 % (42.0-52.0); Hemoglobin 12.4 g/dL (14.0-18.0); Mean Corpuscular HGB CONC 33.2 g/dL (32.0-36.0); Mean Corpuscular Hemoglobin 30.5 pg (27.0-31.0); Mean Corpuscular Volume 91.9 fl (78.0-98.0); Mean Platelet Volume 10.9 fL (7.4-10.4); Platelet Count 280 10x3/uL (130-400); RBC Distribution Width 16.4 % (11.5-14.5); Red Blood Cell (RBC) Count 4.06 mill/uL (4.70-6.10); White Blood Cell (WBC) Count 11.9 10x3/uL (4.8-10.8)
[2023-09-11 05:47] LABS: Calcium 8.8 mg/dL (7.8-10.44); Chloride 104 mmol/L (98-107); Glucose 144 mg/dL (83-110); Potassium 5.1 mmol/L (3.5-5.1); Sodium 134 mmol/L (136-145)
[2023-09-11 05:49] LABS: Carbon Dioxide 19 mmol/L (23-31)
[2023-09-11 05:51] LABS: Calc. Creatinine Clearance 32 mL/min (70-130); Estimated GFR 40
[2023-09-11 05:52] LABS: BUN (Urea Nitrogen) 86 mg/dL (8.4-25.7)
[2023-09-11 05:58] LABS: Anion Gap 16 mmol/L (10-20)
[2023-09-11 09:20] LABS: Hemoglobin 13.1 g/dL (14.0-18.0)
[2023-09-11] MEDS ORDERED: Ondansetron PF 4 MG/2 ML Vial ONE (09:45)
[2023-09-11] MEDS ORDERED: Lidocaine 1% PF 5 ML VIAL ONE (09:45)
[2023-09-11] MEDS ORDERED: Glycopyrrolate 0.2 MG/ML 5 ML SYRINGE ONE (09:45)
[2023-09-11] MEDS ORDERED: Ketamine In 0.9 % NaCl 50 MG/5 ML SYRINGE ONE (09:45)
[2023-09-11] MEDS ORDERED: Dexamethasone 4 mg/ml Vial ONE (09:45)
[2023-09-11] MEDS ORDERED: PROPOFOL 20 ML ONE (09:49)
[2023-09-11] MEDS ORDERED: GoLYTELY 4,000 ml Bottle PO SCH (10:22)
[2023-09-11] MEDS: Pantoprazole 40 MG VIAL IVP SCH (10:58)
[2023-09-11] MEDS: Acetaminophen 325 MG TAB PO PRN ×2 (11:14→21:11)
[2023-09-11] MEDS ORDERED: Insulin Regular 300 UNITS/3 ML VIAL SC PRN (13:51)
[2023-09-11] MEDS: Sodium Chloride 0.9% 1,000 ML IV SCH (17:46)
[2023-09-11] MEDS: Insulin Regular 300 UNITS/3 ML VIAL SC PRN (18:24)
[2023-09-11] MEDS ORDERED: hydrALAZINE 20 MG/ML VIAL SLOW IVP SCH (21:00)
[2023-09-11] MEDS ORDERED: hydrOXYzine 25 MG TAB PO SCH (23:15)
[2023-09-11] MEDS: Sodium Chloride 0.65% Nasal 44 ML BOT EA NARE PRN (23:18)
[2023-09-11] MEDS: Melatonin 3 MG TAB PO PRN (23:18)
[2023-09-12] MEDS ORDERED: Lorazepam 0.5 MG TAB PO SCH (00:15)
[2023-09-12] MEDS ORDERED: Benzocaine/Menthol 1 LOZ LOZ PO PRN (03:16)
[2023-09-12] MEDS: Acetaminophen 325 MG TAB PO PRN (03:50)
[2023-09-12 06:50] LABS: #Eosinphils 0.2 thou/uL (0.0-0.7); #Monocytes 1.1 thou/uL (0.11-0.59); #Neutrophils 9.3 thou/uL (1.40-6.50); %Basophils 0.2 % (0.0-1.0); %Eosinophils 1.2 % (0.0-10.0); %Lymphocytes 18.6 % (21.0-51.0); %Monocytes 8.2 % (0.0-10.0); %Neutrophils 70.5 % (42.0-75.0); Hematocrit 34.1 % (42.0-52.0); Hemoglobin 11.4 g/dL (14.0-18.0); Mean Corpuscular HGB CONC 33.4 g/dL (32.0-36.0); Mean Corpuscular Hemoglobin 30.2 pg (27.0-31.0); Mean Corpuscular Volume 90.5 fl (78.0-98.0); Mean Platelet Volume 10.8 fL (7.4-10.4); Platelet Count 283 10x3/uL (130-400); RBC Distribution Width 16.4 % (11.5-14.5); Red Blood Cell (RBC) Count 3.77 mill/uL (4.70-6.10); White Blood Cell (WBC) Count 13.2 10x3/uL (4.8-10.8)
[2023-09-12 07:10] LABS: Anion Gap 16 mmol/L (10-20); BUN (Urea Nitrogen) 52 mg/dL (8.4-25.7); Calc. Creatinine Clearance 40 mL/min (70-130); Calcium 8.9 mg/dL (7.8-10.44); Carbon Dioxide 22 mmol/L (23-31); Chloride 104 mmol/L (98-107); Estimated GFR 53; Glucose 106 mg/dL (83-110); Potassium 4.9 mmol/L (3.5-5.1); Sodium 137 mmol/L (136-145)
[2023-09-12] MEDS ORDERED: Pantoprazole 40 MG VIAL IVP SCH (09:00)
[2023-09-12] MEDS: Insulin Regular 300 UNITS/3 ML VIAL SC PRN (17:35)
[2023-09-12] MEDS: Melatonin 3 MG TAB PO PRN (20:44)
[2023-09-12] MEDS ORDERED: Sacubitril 24MG/Valsartan 26 MG TAB PO SCH (21:00)
[2023-09-13] MEDS: Insulin Regular 300 UNITS/3 ML VIAL SC PRN ×2 (03:45→17:47)
[2023-09-13 04:29] LABS: #Eosinphils 0.4 thou/uL (0.0-0.7); #Monocytes 0.9 thou/uL (0.11-0.59); #Neutrophils 8.3 thou/uL (1.40-6.50); %Basophils 0.3 % (0.0-1.0); %Lymphocytes 18.1 % (21.0-51.0); %Monocytes 7.2 % (0.0-10.0); %Neutrophils 70.2 % (42.0-75.0); Hematocrit 35.8 % (42.0-52.0); Hemoglobin 11.8 g/dL (14.0-18.0); Mean Corpuscular Hemoglobin 30.6 pg (27.0-31.0); Mean Corpuscular Volume 92.7 fl (78.0-98.0); Mean Platelet Volume 10.7 fL (7.4-10.4); Platelet Count 260 10x3/uL (130-400); Red Blood Cell (RBC) Count 3.86 mill/uL (4.70-6.10); White Blood Cell (WBC) Count 11.8 10x3/uL (4.8-10.8)
[2023-09-13 04:57] LABS: BUN (Urea Nitrogen) 47 mg/dL (8.4-25.7); Calc. Creatinine Clearance 40 mL/min (70-130); Calcium 9.1 mg/dL (7.8-10.44); Carbon Dioxide 26 mmol/L (23-31); Estimated GFR 53; Glucose 136 mg/dL (83-110); Magnesium 2.1 mg/dL (1.6-2.6); Sodium 135 mmol/L (136-145)
[2023-09-13 05:18] LABS: Chloride 102 mmol/L (98-107); Potassium 5.9 mmol/L (3.5-5.1)
[2023-09-13 05:19] LABS: Anion Gap 13 mmol/L (10-20)
[2023-09-13] MEDS ORDERED: Lactulose 20 GM (30 mL) UDCUP PO SCH (08:45)
[2023-09-13] MEDS ORDERED: Sodium Polystyrene Sulfonate 15 GM (60 mL) BOT PO SCH ×2 (08:45→17:30)
[2023-09-13] MEDS ORDERED: FLU VACC QS2023(65UP)/MF59C/PF 60 MCG/0.5 ML SYRINGE IM ONE (09:00)
[2023-09-13] MEDS: Furosemide 40 MG TAB PO SCH (09:49)
[2023-09-13] MEDS: Ezetimibe 10 MG TAB PO SCH (09:49)
[2023-09-13] MEDS: Sodium Bicarbonate Tab 325 MG TAB PO SCH ×3 (09:49→20:15)
[2023-09-13 16:02] LABS: Anion Gap 15 mmol/L (10-20); BUN (Urea Nitrogen) 45 mg/dL (8.4-25.7); Calc. Creatinine Clearance 43 mL/min (70-130); Calcium 8.8 mg/dL (7.8-10.44); Carbon Dioxide 23 mmol/L (23-31); Chloride 103 mmol/L (98-107); Estimated GFR 56; Glucose 178 mg/dL (83-110); Potassium 5.7 mmol/L (3.5-5.1); Sodium 135 mmol/L (136-145)
[2023-09-13] MEDS: Melatonin 3 MG TAB PO PRN (20:15)
[2023-09-13] MEDS ORDERED: Metoprolol Tartrate 25 MG TAB PO SCH (21:00)
[2023-09-13] MEDS: Sodium Chloride 0.65% Nasal 44 ML BOT EA NARE PRN (23:53)
[2023-09-14] MEDS ORDERED: diphenhydrAMINE 25 MG CAP PO SCH (01:30)
[2023-09-14] MEDS: Insulin Regular 300 UNITS/3 ML VIAL SC PRN (06:24)
[2023-09-14 06:37] LABS: #Eosinphils 0.4 thou/uL (0.0-0.7); #Neutrophils 9.3 thou/uL (1.40-6.50); %Basophils 0.2 % (0.0-1.0); %Eosinophils 3.1 % (0.0-10.0); %Lymphocytes 16.6 % (21.0-51.0); %Monocytes 7.9 % (0.0-10.0); %Neutrophils 70.9 % (42.0-75.0); Hematocrit 36.2 % (42.0-52.0); Hemoglobin 12.1 g/dL (14.0-18.0); Mean Corpuscular HGB CONC 33.4 g/dL (32.0-36.0); Mean Corpuscular Hemoglobin 30.8 pg (27.0-31.0); Mean Corpuscular Volume 92.1 fl (78.0-98.0); Mean Platelet Volume 10.3 fL (7.4-10.4); Platelet Count 264 10x3/uL (130-400); RBC Distribution Width 16.9 % (11.5-14.5); Red Blood Cell (RBC) Count 3.93 mill/uL (4.70-6.10); White Blood Cell (WBC) Count 13.1 10x3/uL (4.8-10.8)
[2023-09-14 06:58] LABS: Anion Gap 13 mmol/L (10-20); BUN (Urea Nitrogen) 54 mg/dL (8.4-25.7); Calc. Creatinine Clearance 41 mL/min (70-130); Calcium 8.8 mg/dL (7.8-10.44); Carbon Dioxide 25 mmol/L (23-31); Chloride 102 mmol/L (98-107); Estimated GFR 54; Glucose 159 mg/dL (83-110); Sodium 135 mmol/L (136-145)
[2023-09-14 08:19] VITALS: BP 155/69; TEMP 97.8
[2023-09-14] MEDS: Sodium Bicarbonate Tab 325 MG TAB PO SCH (09:29)
[2023-09-14] MEDS: Ezetimibe 10 MG TAB PO SCH (09:29)
[2023-09-14] MEDS: Furosemide 40 MG TAB PO SCH (09:29)
== END 2023-09-14 11:50 | disposition home or self-care (01) | DRG 378 ==
LOC: ERS 13:55 → T4-A 16:46 → INTOOBSV 16:46 → 2NO 21:51 → OBSVTOIN 09-13 17:15
PROVIDERS: ADMIT Hospitalist; ATTEND Internal Medicine
PROC: 0DJ08ZZ Inspection of Upper Intestinal Tract, Via Natural or Artificial Opening Endoscopic (ICD-10-PCS; principal; 2023-09-11)
DX: K29.71 Gastritis, unspecified, with bleeding (principal); D62 Acute posthemorrhagic anemia; I50.22 Chronic systolic (congestive) heart failure; I13.0 Hypertensive heart and chronic kidney disease with heart failure and stage 1 through stage 4 chronic kidney disease, or unspecified chronic kidney disease; N17.9 Acute kidney failure, unspecified; E87.1 Hypo-osmolality and hyponatremia; K44.9 Diaphragmatic hernia without obstruction or gangrene; E78.5 Hyperlipidemia, unspecified; E11.51 Type 2 diabetes mellitus with diabetic peripheral angiopathy without gangrene; J44.9 Chronic obstructive pulmonary disease, unspecified; E11.22 Type 2 diabetes mellitus with diabetic chronic kidney disease; E87.5 Hyperkalemia; N18.2 Chronic kidney disease, stage 2 (mild); R53.81 Other malaise; Z79.899 Other long term (current) drug therapy; Z79.84 Long term (current) use of oral hypoglycemic drugs; Z89.612 Acquired absence of left leg above knee; Z88.8 Allergy status to other drugs, medicaments and biological substances; Z98.890 Other specified postprocedural states; Z79.01 Long term (current) use of anticoagulants
CPT/HCPCS: 36415; 36416; 80048; 80053; 82274; 83735; 85025; 86850; 86900; 86901; 94760; 96374; 96375; 96376; C9113; G0378; J0360; J1100; J1815; J2405; J2704; J3490; J7050; Q0162

== ENCOUNTER 2023-09-15 13:35 | Inpatient (IN) | payer MEDICARE ==
[2023-09-15 15:56] LABS: #Eosinphils 0.1 thou/uL (0.0-0.7); #Monocytes 0.9 thou/uL (0.11-0.59); #Neutrophils 12.5 thou/uL (1.40-6.50); %Basophils 0.3 % (0.0-1.0); %Eosinophils 0.8 % (0.0-10.0); %Lymphocytes 7.6 % (21.0-51.0); %Monocytes 6.1 % (0.0-10.0); %Neutrophils 84.5 % (42.0-75.0); Hematocrit 33.9 % (42.0-52.0); Hemoglobin 11.5 g/dL (14.0-18.0); Mean Corpuscular HGB CONC 33.9 g/dL (32.0-36.0); Mean Corpuscular Hemoglobin 31.2 pg (27.0-31.0); Mean Corpuscular Volume 91.9 fl (78.0-98.0); Mean Platelet Volume 10.5 fL (7.4-10.4); Platelet Count 246 10x3/uL (130-400); RBC Distribution Width 16.9 % (11.5-14.5); Red Blood Cell (RBC) Count 3.69 mill/uL (4.70-6.10); White Blood Cell (WBC) Count 14.8 10x3/uL (4.8-10.8)
[2023-09-15 16:10] LABS: Prothrombin Time 13.6 sec (12.0-14.7)
[2023-09-15 16:11] LABS: PTT 25.8 sec (22.9-36.1)
[2023-09-15 16:23] LABS: ALT (SGPT) 16 U/L (8-55); AST (SGOT) 14 U/L (5-34); Albumin 3.3 g/dL (3.4-4.8); Alkaline Phosphatase 72 U/L (40-110); Anion Gap 14 mmol/L (10-20); BUN (Urea Nitrogen) 46 mg/dL (8.4-25.7); Bilirubin, Total 0.4 mg/dL (0.2-1.2); Calc. Creatinine Clearance 0 mL/min (70-130); Calcium 8.8 mg/dL (7.8-10.44); Carbon Dioxide 23 mmol/L (23-31); Chloride 105 mmol/L (98-107); Estimated GFR 52; Globulin 2.5 g/dL (2.4-3.5); Glucose 197 mg/dL (83-110); Potassium 4.6 mmol/L (3.5-5.1); Protein, Total 5.8 g/dL (5.8-8.1); Sodium 137 mmol/L (136-145)
[2023-09-15] MEDS ORDERED: Ondansetron PF 4 MG/2 ML Vial IVP PRN (20:43)
[2023-09-15] MEDS ORDERED: Acetaminophen 325 MG TAB PO PRN (20:43)
[2023-09-15] MEDS ORDERED: Glucagon 1 MG/ML KIT IM PRN (20:43)
[2023-09-15] MEDS ORDERED: Dextrose 5% in Water 1,000 ML IV PRN (20:43)
[2023-09-15] MEDS ORDERED: Dextrose 50% Abboject 50 ML SYRINGE SLOW IVP PRN (20:43)
[2023-09-15] MEDS ORDERED: Ondansetron ODT 4 MG TAB PO PRN (20:43)
[2023-09-15] MEDS ORDERED: Ipratropium/Albuterol 3 ML NEB NEB PRN (20:43)
[2023-09-15] MEDS: guaiFENesin ER 600 MG TAB PO SCH ×2 (23:00→23:09)
[2023-09-16 00:02] VITALS: BMI 22.2
[2023-09-16 08:45] LABS: %Neutrophils 76.6 % (42.0-75.0); Hematocrit 34.9 % (42.0-52.0); Hemoglobin 11.4 g/dL (14.0-18.0); Mean Corpuscular HGB CONC 32.7 g/dL (32.0-36.0); Mean Corpuscular Hemoglobin 30.7 pg (27.0-31.0); Mean Corpuscular Volume 94.1 fl (78.0-98.0); Mean Platelet Volume 10.6 fL (7.4-10.4); Platelet Count 233 10x3/uL (130-400); RBC Distribution Width 16.9 % (11.5-14.5); Red Blood Cell (RBC) Count 3.71 mill/uL (4.70-6.10); White Blood Cell (WBC) Count 13.6 10x3/uL (4.8-10.8)
[2023-09-16 08:46] LABS: #Basophils 0.1 thou/uL (0.0-0.2); #Eosinphils 0.3 thou/uL (0.0-0.7); #Monocytes 1.2 thou/uL (0.11-0.59); #Neutrophils 10.4 thou/uL (1.40-6.50); %Basophils 0.4 % (0.0-1.0); %Eosinophils 2.4 % (0.0-10.0); %Lymphocytes 10.6 % (21.0-51.0)
[2023-09-16 09:11] LABS: Phosphorus 2.8 mg/dL (2.3-4.7)
[2023-09-16 09:13] LABS: Anion Gap 10 mmol/L (10-20); BUN (Urea Nitrogen) 36 mg/dL (8.4-25.7); Calc. Creatinine Clearance 49 mL/min (70-130); Calcium 8.7 mg/dL (7.8-10.44); Carbon Dioxide 26 mmol/L (23-31); Chloride 104 mmol/L (98-107); Estimated GFR 66; Glucose 129 mg/dL (83-110); Potassium 4.9 mmol/L (3.5-5.1); Sodium 135 mmol/L (136-145)
[2023-09-16] MEDS: guaiFENesin ER 600 MG TAB PO SCH ×2 (09:13→20:15)
[2023-09-16] MEDS: Ezetimibe 10 MG TAB PO SCH (09:13)
[2023-09-16] MEDS: Sacubitril 24MG/Valsartan 26 MG TAB PO SCH ×2 (09:13→20:15)
[2023-09-16] MEDS: Furosemide 40 MG TAB PO SCH (09:13)
[2023-09-16] MEDS: Pantoprazole 40 MG VIAL IVP SCH ×2 (09:13→20:15)
[2023-09-16] MEDS: GoLYTELY 4,000 ml Bottle PO SCH (20:15)
[2023-09-17] MEDS: GoLYTELY 4,000 ml Bottle PO SCH (02:59)
[2023-09-17 04:58] LABS: #Basophils 0.1 thou/uL (0.0-0.2); #Eosinphils 0.3 thou/uL (0.0-0.7); #Monocytes 1.2 thou/uL (0.11-0.59); #Neutrophils 10.3 thou/uL (1.40-6.50); %Basophils 0.7 % (0.0-1.0); %Eosinophils 1.8 % (0.0-10.0); %Lymphocytes 13.9 % (21.0-51.0); %Monocytes 8.3 % (0.0-10.0); %Neutrophils 74.9 % (42.0-75.0); Hematocrit 36.7 % (42.0-52.0); Hemoglobin 11.3 g/dL (14.0-18.0); Mean Corpuscular HGB CONC 30.8 g/dL (32.0-36.0); Mean Corpuscular Hemoglobin 29.8 pg (27.0-31.0); Mean Corpuscular Volume 96.8 fl (78.0-98.0); Mean Platelet Volume 10.7 fL (7.4-10.4); Platelet Count 229 10x3/uL (130-400); RBC Distribution Width 16.9 % (11.5-14.5); Red Blood Cell (RBC) Count 3.79 mill/uL (4.70-6.10); White Blood Cell (WBC) Count 13.8 10x3/uL (4.8-10.8)
[2023-09-17 05:21] LABS: Anion Gap 13 mmol/L (10-20); BUN (Urea Nitrogen) 35 mg/dL (8.4-25.7); Calc. Creatinine Clearance 52 mL/min (70-130); Calcium 8.6 mg/dL (7.8-10.44); Carbon Dioxide 21 mmol/L (23-31); Chloride 106 mmol/L (98-107); Estimated GFR 70; Glucose 115 mg/dL (83-110); Potassium 5.4 mmol/L (3.5-5.1); Sodium 135 mmol/L (136-145)
[2023-09-17] MEDS ORDERED: PROPOFOL 40 ML ONE (09:21)
[2023-09-17] MEDS ORDERED: PHENYLEPHRINE-NS 100 MCG/ML 10 ML SYRINGE ONE (10:00)
[2023-09-17] MEDS ORDERED: Promethazine HCl 25 MG/ML VIAL IM PRN (10:05)
[2023-09-17] MEDS ORDERED: Ondansetron HCl/PF 4 MG/2 ML Vial IVP PRN (10:05)
[2023-09-17] MEDS: guaiFENesin ER 600 MG TAB PO SCH ×2 (11:37→21:45)
[2023-09-17] MEDS: Sacubitril 24MG/Valsartan 26 MG TAB PO SCH ×2 (11:37→21:45)
[2023-09-17] MEDS: Pantoprazole 40 MG VIAL IVP SCH ×2 (11:37→21:45)
[2023-09-17] MEDS: Furosemide 40 MG TAB PO SCH (11:43)
[2023-09-17] MEDS: Ezetimibe 10 MG TAB PO SCH (11:43)
[2023-09-17] MEDS: HumaLOG 300 UNITS/3 ML VIAL SC PRN ×2 (17:00→21:46)
[2023-09-17] MEDS: Apixaban 2.5 MG TAB PO SCH (21:46)
[2023-09-18] MEDS: Sacubitril 24MG/Valsartan 26 MG TAB PO SCH ×2 (08:28→20:13)
[2023-09-18] MEDS: Apixaban 2.5 MG TAB PO SCH ×2 (08:28→20:14)
[2023-09-18] MEDS: guaiFENesin ER 600 MG TAB PO SCH ×2 (08:28→20:13)
[2023-09-18] MEDS: Furosemide 40 MG TAB PO SCH (08:28)
[2023-09-18] MEDS: Ezetimibe 10 MG TAB PO SCH (08:28)
[2023-09-18] MEDS: Pantoprazole 40 MG VIAL IVP SCH ×2 (08:28→20:13)
[2023-09-18 11:41] LABS: #Basophils 0.1 thou/uL (0.0-0.2); #Eosinphils 0.2 thou/uL (0.0-0.7); #Monocytes 1.2 thou/uL (0.11-0.59); #Neutrophils 9.7 thou/uL (1.40-6.50); %Basophils 0.6 % (0.0-1.0); %Eosinophils 1.8 % (0.0-10.0); %Lymphocytes 9.9 % (21.0-51.0); %Monocytes 9.8 % (0.0-10.0); %Neutrophils 77.4 % (42.0-75.0); Hematocrit 33.3 % (42.0-52.0); Hemoglobin 10.9 g/dL (14.0-18.0); Mean Corpuscular HGB CONC 32.7 g/dL (32.0-36.0); Mean Corpuscular Hemoglobin 31.1 pg (27.0-31.0); Mean Corpuscular Volume 95.1 fl (78.0-98.0); Mean Platelet Volume 10.7 fL (7.4-10.4); Platelet Count 206 10x3/uL (130-400); RBC Distribution Width 17.2 % (11.5-14.5); White Blood Cell (WBC) Count 12.6 10x3/uL (4.8-10.8)
[2023-09-18 12:09] LABS: ALT (SGPT) 11 U/L (8-55); AST (SGOT) 12 U/L (5-34); Alkaline Phosphatase 72 U/L (40-110); Anion Gap 12 mmol/L (10-20); BUN (Urea Nitrogen) 35 mg/dL (8.4-25.7); Bilirubin, Total 0.3 mg/dL (0.2-1.2); Calc. Creatinine Clearance 41 mL/min (70-130); Calcium 8.5 mg/dL (7.8-10.44); Carbon Dioxide 22 mmol/L (23-31); Chloride 105 mmol/L (98-107); Estimated GFR 54; Globulin 2.4 g/dL (2.4-3.5); Glucose 247 mg/dL (83-110); Protein, Total 5.4 g/dL (5.8-8.1); Sodium 134 mmol/L (136-145)
[2023-09-18] MEDS: HumaLOG 300 UNITS/3 ML VIAL SC PRN ×3 (13:15→21:46)
[2023-09-19] MEDS ORDERED: FLU VACC QS2023(65UP)/MF59C/PF 60 MCG/0.5 ML SYRINGE IM ONE (00:45)
[2023-09-19] MEDS: Pantoprazole 40 MG VIAL IVP SCH ×2 (07:42→20:49)
[2023-09-19] MEDS: Ezetimibe 10 MG TAB PO SCH (07:42)
[2023-09-19] MEDS: Furosemide 40 MG TAB PO SCH (07:42)
[2023-09-19] MEDS: Apixaban 2.5 MG TAB PO SCH ×2 (07:42→20:48)
[2023-09-19] MEDS: Sacubitril 24MG/Valsartan 26 MG TAB PO SCH ×2 (07:42→20:48)
[2023-09-19] MEDS: guaiFENesin ER 600 MG TAB PO SCH ×2 (07:42→20:49)
[2023-09-19 10:28] LABS: #Basophils 0.1 thou/uL (0.0-0.2); #Eosinphils 0.3 thou/uL (0.0-0.7); #Neutrophils 8.5 thou/uL (1.40-6.50); %Eosinophils 2.2 % (0.0-10.0); %Lymphocytes 11.9 % (21.0-51.0); %Monocytes 8.7 % (0.0-10.0); %Neutrophils 75.8 % (42.0-75.0); Hematocrit 36.7 % (42.0-52.0); Hemoglobin 11.8 g/dL (14.0-18.0); Mean Corpuscular HGB CONC 32.2 g/dL (32.0-36.0); Mean Corpuscular Hemoglobin 30.5 pg (27.0-31.0); Mean Corpuscular Volume 94.8 fl (78.0-98.0); Mean Platelet Volume 11.3 fL (7.4-10.4); Platelet Count 200 10x3/uL (130-400); RBC Distribution Width 16.9 % (11.5-14.5); Red Blood Cell (RBC) Count 3.87 mill/uL (4.70-6.10); White Blood Cell (WBC) Count 11.2 10x3/uL (4.8-10.8)
[2023-09-19 10:51] LABS: ALT (SGPT) 13 U/L (8-55); AST (SGOT) 13 U/L (5-34); Albumin 3.3 g/dL (3.4-4.8); Alkaline Phosphatase 77 U/L (40-110); Anion Gap 13 mmol/L (10-20); BUN (Urea Nitrogen) 37 mg/dL (8.4-25.7); Bilirubin, Total 0.4 mg/dL (0.2-1.2); Calc. Creatinine Clearance 42 mL/min (70-130); Calcium 8.9 mg/dL (7.8-10.44); Carbon Dioxide 19 mmol/L (23-31); Chloride 106 mmol/L (98-107); Estimated GFR 55; Globulin 2.6 g/dL (2.4-3.5); Glucose 237 mg/dL (83-110); Protein, Total 5.9 g/dL (5.8-8.1); Sodium 133 mmol/L (136-145)
[2023-09-19] MEDS: HumaLOG 300 UNITS/3 ML VIAL SC PRN ×2 (12:53→20:49)
[2023-09-19] MEDS ORDERED: Lorazepam 0.5 MG TAB PO PRN (16:15)
[2023-09-19] MEDS ORDERED: Lorazepam 0.5 MG TAB PO SCH (16:15)
[2023-09-20] MEDS: guaiFENesin ER 600 MG TAB PO SCH ×2 (08:41→20:14)
[2023-09-20] MEDS: Sacubitril 24MG/Valsartan 26 MG TAB PO SCH ×2 (08:41→20:14)
[2023-09-20] MEDS: Ezetimibe 10 MG TAB PO SCH (08:41)
[2023-09-20] MEDS: Apixaban 2.5 MG TAB PO SCH ×2 (08:41→20:14)
[2023-09-20] MEDS: Furosemide 40 MG TAB PO SCH (08:41)
[2023-09-20] MEDS: Pantoprazole 40 MG VIAL IVP SCH ×2 (08:41→20:15)
[2023-09-20 09:16] LABS: #Basophils 0.1 thou/uL (0.0-0.2); #Eosinphils 0.3 thou/uL (0.0-0.7); #Neutrophils 10.5 thou/uL (1.40-6.50); %Basophils 0.9 % (0.0-1.0); %Eosinophils 2.4 % (0.0-10.0); %Lymphocytes 11.1 % (21.0-51.0); %Monocytes 7.7 % (0.0-10.0); %Neutrophils 77.5 % (42.0-75.0); Hematocrit 35.6 % (42.0-52.0); Hemoglobin 11.6 g/dL (14.0-18.0); Mean Corpuscular HGB CONC 32.6 g/dL (32.0-36.0); Mean Corpuscular Hemoglobin 30.9 pg (27.0-31.0); Mean Corpuscular Volume 94.7 fl (78.0-98.0); Mean Platelet Volume 10.7 fL (7.4-10.4); Platelet Count 229 10x3/uL (130-400); RBC Distribution Width 16.8 % (11.5-14.5); Red Blood Cell (RBC) Count 3.76 mill/uL (4.70-6.10); White Blood Cell (WBC) Count 13.6 10x3/uL (4.8-10.8)
[2023-09-20 09:39] LABS: Anion Gap 13 mmol/L (10-20); BUN (Urea Nitrogen) 54 mg/dL (8.4-25.7); Calc. Creatinine Clearance 35 mL/min (70-130); Calcium 8.4 mg/dL (7.8-10.44); Carbon Dioxide 21 mmol/L (23-31); Chloride 103 mmol/L (98-107); Estimated GFR 44; Glucose 190 mg/dL (83-110); Potassium 5.2 mmol/L (3.5-5.1); Sodium 132 mmol/L (136-145)
[2023-09-20 13:09] VITALS: BP 173/84; TEMP 97.4
== END 2023-09-20 20:20 | DRG 394 ==
LOC: ERS 13:35 → T4-B 20:43 → OBSVTOIN 09-17 10:45
PROVIDERS: ADMIT Internal Medicine; ATTEND Family Medicine
PROC: 0DJD8ZZ Inspection of Lower Intestinal Tract, Via Natural or Artificial Opening Endoscopic (ICD-10-PCS; principal; 2023-09-17)
DX: K64.8 Other hemorrhoids (principal); I13.0 Hypertensive heart and chronic kidney disease with heart failure and stage 1 through stage 4 chronic kidney disease, or unspecified chronic kidney disease; I50.22 Chronic systolic (congestive) heart failure; J44.1 Chronic obstructive pulmonary disease with (acute) exacerbation; N17.9 Acute kidney failure, unspecified; K44.9 Diaphragmatic hernia without obstruction or gangrene; K29.70 Gastritis, unspecified, without bleeding; E78.5 Hyperlipidemia, unspecified; E11.51 Type 2 diabetes mellitus with diabetic peripheral angiopathy without gangrene; E11.22 Type 2 diabetes mellitus with diabetic chronic kidney disease; N18.2 Chronic kidney disease, stage 2 (mild); Z88.8 Allergy status to other drugs, medicaments and biological substances; Z79.01 Long term (current) use of anticoagulants; Z79.84 Long term (current) use of oral hypoglycemic drugs; Z79.899 Other long term (current) drug therapy; Z89.612 Acquired absence of left leg above knee; K21.9 Gastro-esophageal reflux disease without esophagitis; M19.90 Unspecified osteoarthritis, unspecified site; Z79.4 Long term (current) use of insulin; D50.0 Iron deficiency anemia secondary to blood loss (chronic); Z99.3 Dependence on wheelchair
CPT/HCPCS: 36415; 36416; 80048; 80053; 83735; 84100; 84145; 85025; 85610; 85730; 96374; 96376; 99285; C9113; G0378; J1815; J2704

== ENCOUNTER 2024-09-30 14:37 | Emergency (ER) | payer MEDICARE ==
[2024-09-30] MEDS ORDERED: Sodium Chloride 0.9% 100 ML ONE (16:12)
[2024-09-30] MEDS ORDERED: Cefepime 2 GM VIAL ONE (16:12)
[2024-09-30] MEDS ORDERED: Vancomycin (BATCH) 1.75 GM in Premix 1 BAG IVPB SCH (16:30)
[2024-09-30 16:52] LABS: Bacteria/HPF None Seen HPF (None Seen); Bilirubin Negative (Negative); Blood, Urine Negative (Negative); CAUTI Indications for Culture Fever or rigors; Clarity Clear (Clear); Glucose, Urine (Dipstick) Normal (Negative); Ketone, Urine Negative (Negative); Leukocyte Negative Leu/uL (Negative); Nitrite Negative (Negative); Protein, Urine (Dipstick) 100 mg/dL (Neg-Trace); RBC/HPF 0-3 HPF (0-3); Specific Gravity, Urine 1.014 (1.002-1.036); Squamous Epithelial None Seen HPF (0-3); Urobilinogen Normal mg/dL (Less than 2); WBC/HPF 0-3 HPF (0-3); pH, Urine 7.5 (5.0-9.0)
[2024-09-30 17:06] LABS: Urine Culture Reflex No No
[2024-09-30 17:15] LABS: #Basophils 0.08 10x3/uL (0.0-0.2); %Basophils 0.9 % (0.0-1.0); %Eosinophils 3.9 % (0.0-10.0); %Lymphocytes 7.3 % (21.0-51.0); %Neutrophils 75.6 % (42.0-75.0); Hemoglobin 10.4 g/dL (14.0-18.0); Mean Corpuscular HGB CONC 31.5 g/dL (32.0-36.0); Mean Corpuscular Hemoglobin 27.9 pg (27.0-31.0); Mean Corpuscular Volume 88.5 fL (78.0-98.0); Mean Platelet Volume 10.5 fL (7.4-10.4); Platelet Count 249 10x3/uL (130-400); RBC Distribution Width 15.6 % (11.5-14.5); Red Blood Cell (RBC) Count 3.73 mill/uL (4.70-6.10)
[2024-09-30 17:29] LABS: ALT (SGPT) 10 U/L (Less than 45); AST (SGOT) 17 U/L (11-34); Albumin 2.8 g/dL (3.1-4.5); Alkaline Phosphatase 88 U/L (40-110); Anion Gap 13 mmol/L (10-20); BUN (Urea Nitrogen) 26 mg/dL (8.4-25.7); Bilirubin, Total 0.3 mg/dL (0.3-1.2); Calc. Creatinine Clearance 0 mL/min (70-130); Calcium 8.5 mg/dL (7.8-10.44); Carbon Dioxide 22 mmol/L (23-31); Chloride 106 mmol/L (98-107); Estimated GFR 55; Globulin 3.3 g/dL (2.4-3.5); Glucose 190 mg/dL (83-110); Potassium 5.3 mmol/L (3.5-5.1); Protein, Total 6.1 g/dL (5.8-8.1); Sodium 136 mmol/L (136-145)
[2024-09-30] MEDS ORDERED: LOKELMA 10 GM PACKET PO SCH (19:15)
== END 2024-09-30 20:36 | disposition short-term general hospital (02) ==
LOC: ERS 14:37
DX: S92.501A Displaced unspecified fracture of right lesser toe(s), initial encounter for closed fracture (principal); E11.22 Type 2 diabetes mellitus with diabetic chronic kidney disease; I13.2 Hypertensive heart and chronic kidney disease with heart failure and with stage 5 chronic kidney disease, or end stage renal disease; N18.5 Chronic kidney disease, stage 5; E11.621 Type 2 diabetes mellitus with foot ulcer; I50.9 Heart failure, unspecified; I48.91 Unspecified atrial fibrillation; K21.9 Gastro-esophageal reflux disease without esophagitis; E78.5 Hyperlipidemia, unspecified; Z86.73 Personal history of transient ischemic attack (TIA), and cerebral infarction without residual deficits; Z79.01 Long term (current) use of anticoagulants; Z79.899 Other long term (current) drug therapy; W29.3XXA Contact with powered garden and outdoor hand tools and machinery, initial encounter
CPT/HCPCS: 73630; 80053; 81001; 82962; 85025; 86141; 87086; J0692; J3370; 36416; 93005; 96365; 96366; 96367